=== PATIENT | male | born 1930 | race Caucasian/White ===

== ENCOUNTER 2017-02-26 09:44 | Outpatient (CLI) | payer MEDICARE ==
[2017-02-26 11:50] LABS: Hemoglobin 13.3 g/dL (14.0-18.0); Mean Corpuscular HGB CONC 33.5 g/dL (32.0-36.0); Mean Corpuscular Volume 92.5 fl (80.0-94.0); Mean Platelet Volume 7.2 fL (7.4-10.4); Platelet Count 241 thou/uL (130-400); RBC Distribution Width 13.6 % (11.5-14.5); Red Blood Cell (RBC) Count 4.29 mill/uL (4.70-6.10); White Blood Cell (WBC) Count 10.5 thou/uL (4.8-10.8)
[2017-02-26 12:00] LABS: INR-International Normal Ratio 1.1; PTT 28.7 SEC (22.9-36.1); Prothrombin Time 13.8 SEC (12.0-14.7)
[2017-02-26 12:34] LABS: Anion Gap 16 mmol/L (10-20); BUN (Urea Nitrogen) 20 mg/dL (8.4-25.7); Calc. Creatinine Clearance 0 mL/min (70-130); Calcium 9.6 mg/dL (7.8-10.44); Carbon Dioxide 21 mmol/L (23-31); Chloride 104 mmol/L (98-107); Estimated GFR-MDRD 76; Glucose 107 mg/dL (83-110); Potassium 4.4 mmol/L (3.5-5.1); Sodium 137 mmol/L (136-145)
--- NOTE | 2017-03-23 16:30 | EKG ---
Test Reason : Blood Pressure : / mmHG Vent. Rate : 069 BPM Atrial Rate : 069 BPM P-R Int : 174 ms QRS Dur : 172 ms QT Int : 482 ms P-R-T Axes : 000 -82 078 degrees QTc Int : 516 ms AV sequential or dual chamber electronic pacemaker When compared with ECG of 14-APR-2013 12:02, No significant change was found Confirmed by DR. Ronald MARTINEZ ([id number]) on 03/23/2017 4:29:53 PM Referred By: SHILPA Confirmed By:DR. Ronald MARTINEZ
== END 2017-02-26 09:45 | disposition home or self-care (01) ==
LOC: LABBT 09:44
PROVIDERS: ATTEND Surgery
DX: Z01.818 Encounter for other preprocedural examination (principal); M54.16 Radiculopathy, lumbar region; M48.062 Spinal stenosis, lumbar region with neurogenic claudication
CPT/HCPCS: 80048; 85027; 85610; 85730; 93005; 93010

== ENCOUNTER 2017-03-27 05:53 | Day surgery (SDC) | payer MEDICARE ==
[2017-02-26 10:17] VITALS: BMI 27.3
[2017-03-27] MEDS ORDERED: Sodium Chloride 0.9% 10 ML ONE (06:29)
[2017-03-27] MEDS ORDERED: Thrombin 5000 UNITS/5 ML VIAL ONE (06:29)
[2017-03-27] MEDS ORDERED: CEFAZOLIN/Water 2 GM/20 ML SYRINGE ONE (06:44)
[2017-03-27] MEDS ORDERED: Fentanyl 100 MCG/2 ML VIAL ONE ×2 (07:03→11:24)
[2017-03-27] MEDS ORDERED: Norepinephrine 8 MG/0.9% NS 250 ML ONE (07:26)
[2017-03-27] MEDS ORDERED: Bacitracin Zinc Ointment 30 gm TUBE ONE (09:27)
[2017-03-27] MEDS ORDERED: Ondansetron HCl/PF 4 MG/2 ML Vial IVP PRN ×2 (09:56→11:02)
[2017-03-27] MEDS ORDERED: Morphine Sulfate 2 MG/ML SYRINGE SLOW IVP PRN (09:56)
[2017-03-27] MEDS ORDERED: Promethazine HCl 25 MG/ML VIAL IM PRN ×2 (09:56→11:02)
[2017-03-27] MEDS ORDERED: Promethazine HCl 25 MG/ML VIAL SLOW IVP PRN (09:56)
[2017-03-27] MEDS ORDERED: Meperidine HCl/PF 25 MG/ML VIAL SLOW IVP PRN (09:56)
[2017-03-27] MEDS ORDERED: Mag-Al 1200 mg/1200 mg/30 ML UDCUP PO PRN (11:02)
[2017-03-27] MEDS ORDERED: Bisacodyl 10 MG SUPP PR PRN (11:02)
[2017-03-27] MEDS ORDERED: Acetaminophen/Codeine 30-300mg Tablet PO PRN (11:02)
[2017-03-27] MEDS ORDERED: Milk Of Magnesia 30 ML UDCUP PO PRN (11:02)
[2017-03-27] MEDS ORDERED: Fleet Enema 133 ML BOT PR PRN (11:02)
[2017-03-27] MEDS ORDERED: Acetaminophen 325 MG TAB PO PRN (11:02)
--- NOTE | 2017-03-27 12:20 | OP ---
OR: 12 WOUND TYPE: Type 1 wound. SURGEON: Omar Pereira M.D. 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 PROCEDURES PERFORMED: L1-L2, L2-L3, L3-L4, L4-L5, L5-S1 laminectomies, partial facetectomies and for aminotomies over the L1, L2, L3, L4, L5, and S1 nerve roots. PROCEDURE IN DETAIL: After informed consent was obtained from the patient, the patient brought to OR 12. Proper patient pause and identification was carried out. He was placed under excellent general endotracheal anesthesia and positioned prone on the operating table. All appropriate points were pa dded. We identified the L1, L2, L3, L4, L5, and S1 dorsal spines and lamina. A linear leonor was made over this region. This area was sterilely cleansed, prepared, and draped. Proper patient pause and identification was carried out. The wound was then opened with a combination of sharp, monopolar an d blunt dissection and the L1, L2, L3, L4, L5, and S1 dorsal spines and lamina were exposed. Localiz ation film confirmed our area of interest. We then performed an L1, L2, L3, L4, L5, and S1 laminecto mies, partial facetectomies and foraminotomies over the L1, L2, L3, L4, L5, and S1 dorsal nerve roots . Satisfied with our decompression. Copious irrigation occurred throughout and hemostasis maximized . The wound was then closed in anatomic layers. I should note there was no spinal fluid leak. We d id place vancomycin powder in the wound as well.
[2017-03-27] MEDS: Sodium Chloride 0.9% 1,000 ML IV SCH ×2 (13:39→13:52)
[2017-03-27] MEDS: HYDROcodone/Acetaminophen 7.5/325 mg Tablet PO PRN ×2 (14:23→22:11)
[2017-03-27] MEDS: tiZANidine HCl 4 MG TAB PO PRN (16:07)
[2017-03-27] MEDS: traMADol HCl 50 MG TAB PO PRN ×3 (16:07→22:13)
[2017-03-27] MEDS ORDERED: Glycopyrrolate 0.2 MG/ML 5 ML SYRINGE ONE (16:22)
[2017-03-27] MEDS ORDERED: PHENYLEPHRINE-NS 100 MCG/ML 10 ML SYRINGE ONE (16:22)
[2017-03-27] MEDS ORDERED: Ondansetron HCl/PF 4 MG/2 ML Vial ONE (16:22)
[2017-03-27] MEDS ORDERED: Propofol 200 MG/20 ML VIAL ONE (16:22)
[2017-03-27] MEDS ORDERED: Dexamethasone 20 MG/5 ML VIAL ONE (16:22)
[2017-03-27] MEDS ORDERED: Lidocaine 1% PF 5 ML VIAL ONE (16:22)
[2017-03-27] MEDS: CEFAZOLIN/Water 2 GM/20 ML SYRINGE SLOW IVP SCH (17:22)
[2017-03-27] MEDS ORDERED: GLUCOSAMINE SULFATE 1000 MG PO SCH (21:00)
[2017-03-27] MEDS: metFORMIN 500 MG TAB PO SCH (21:55)
[2017-03-27] MEDS: Montelukast Sodium 10 mg Tablet PO SCH (21:56)
[2017-03-27] MEDS: Calcium Carbonate + Vit D 1 TAB PO SCH (21:56)
[2017-03-27] MEDS: Vit A,C & E/Lutein/Minerals Tablet PO SCH (22:10)
[2017-03-28] MEDS: CEFAZOLIN/Water 2 GM/20 ML SYRINGE SLOW IVP SCH (00:28)
[2017-03-28] MEDS: HYDROcodone/Acetaminophen 7.5/325 mg Tablet PO PRN ×4 (02:20→21:28)
[2017-03-28] MEDS: tiZANidine HCl 4 MG TAB PO PRN ×3 (02:21→21:28)
[2017-03-28] MEDS: Sodium Chloride 0.9% 1,000 ML IV SCH ×2 (03:09→14:25)
[2017-03-28] MEDS: traMADol HCl 50 MG TAB PO PRN (05:32)
[2017-03-28] MEDS: Folic Acid 1 MG TAB PO SCH (08:58)
[2017-03-28] MEDS: Ferrous Sulfate 325 MG TAB PO SCH (08:59)
[2017-03-28] MEDS: Amlodipine 5 MG TAB PO SCH (08:59)
[2017-03-28] MEDS: Multivitamin W/ Minerals 1 TAB PO SCH (08:59)
[2017-03-28] MEDS: Calcium Carbonate + Vit D 1 TAB PO SCH ×2 (08:59→21:23)
[2017-03-28] MEDS: metFORMIN 500 MG TAB PO SCH ×2 (08:59→21:23)
[2017-03-28] MEDS: Atorvastatin Calcium 40 MG TAB PO SCH (08:59)
[2017-03-28] MEDS: Cyanocobalamin (Vitamin B-12) 1,000 MCG TAB PO SCH (08:59)
[2017-03-28] MEDS: Hydrochlorothiazide 25 MG TAB PO SCH (09:00)
--- NOTE | 2017-03-28 09:34 | PRG ---
DATE OF SERVICE: 03/28/2017 Mr. Paniagua is postoperative day 1 from multilevel lumbar laminectomy and decompression. He is doing well with improvement in his leg pain. Obviously low back pain related to surgery is the main issue. We will work on this and ask our physiatry colleagues to assist.
[2017-03-28] MEDS: Magnesium Chloride 64 MG TAB PO SCH (10:35)
[2017-03-28] MEDS: Glimepiride 1 MG TAB PO SCH (10:35)
[2017-03-28] MEDS: Ubidecarenone 50 MG CAP PO SCH (10:36)
[2017-03-28] MEDS: Vit A,C & E/Lutein/Minerals Tablet PO SCH ×2 (10:36→21:23)
[2017-03-28] MEDS: Dutasteride 0.5 MG CAP PO SCH (10:37)
[2017-03-28] MEDS: TUMERIC CURCUMIN PO SCH ×2 (14:25→14:26)
[2017-03-28] MEDS: GLUCOSAMINE SULFATE 1000 MG PO SCH (14:25)
[2017-03-28] MEDS: Montelukast Sodium 10 mg Tablet PO SCH (21:23)
[2017-03-29] MEDS: Sodium Chloride 0.9% 1,000 ML IV SCH ×2 (01:09→17:11)
[2017-03-29] MEDS: traMADol HCl 50 MG TAB PO PRN ×3 (04:35→17:13)
[2017-03-29] MEDS: tiZANidine HCl 4 MG TAB PO PRN ×3 (04:37→17:16)
[2017-03-29] MEDS: metFORMIN 500 MG TAB PO SCH ×2 (09:15→21:08)
[2017-03-29] MEDS: Hydrochlorothiazide 25 MG TAB PO SCH (09:16)
[2017-03-29] MEDS: Cyanocobalamin (Vitamin B-12) 1,000 MCG TAB PO SCH (09:17)
[2017-03-29] MEDS: Dutasteride 0.5 MG CAP PO SCH (09:17)
[2017-03-29] MEDS: Folic Acid 1 MG TAB PO SCH (09:17)
[2017-03-29] MEDS: Atorvastatin Calcium 40 MG TAB PO SCH (09:18)
[2017-03-29] MEDS: Calcium Carbonate + Vit D 1 TAB PO SCH ×2 (09:18→21:08)
[2017-03-29] MEDS: Ferrous Sulfate 325 MG TAB PO SCH (09:18)
[2017-03-29] MEDS: Amlodipine 5 MG TAB PO SCH ×2 (09:18→09:31)
[2017-03-29] MEDS: Multivitamin W/ Minerals 1 TAB PO SCH (09:18)
[2017-03-29] MEDS: Vit A,C & E/Lutein/Minerals Tablet PO SCH ×2 (12:11→21:08)
[2017-03-29] MEDS: Glimepiride 1 MG TAB PO SCH (12:12)
[2017-03-29] MEDS: Magnesium Chloride 64 MG TAB PO SCH (12:12)
[2017-03-29] MEDS: Ubidecarenone 50 MG CAP PO SCH (12:12)
[2017-03-29] MEDS: HYDROcodone/Acetaminophen 7.5/325 mg Tablet PO PRN (12:13)
--- NOTE | 2017-03-29 16:59 | PRG ---
DATE OF SERVICE: 03/29/2017 Giovanni Taylor PA-C, dictating for Omar Pereira MD Mr. Paniagua is now postoperative day #2, having undergone an L1-S1 laminectomy. The patient states hi s incision continues to bother him and he is experimenting with different types of pain medications a nd muscle relaxants to help with his pain. He has been up walking the halls with physical therapy. He is at neurologic baseline with good strength in the bilateral lower extremities, intact sensation to light touch throughout. He is refused to go to inpatient rehab, so we will set up home health [facility] h therapy and he will likely be ready for dismissal tomorrow. He is again ambulating, tolerating ely id diet, voiding spontaneously and his pain is under decent control with oral medications. Again, we will check back in the morning, but plan for dismissal tomorrow. Please call with any questions or changes in patient's neurologic status.
[2017-03-29] MEDS: Montelukast Sodium 10 mg Tablet PO SCH (21:08)
[2017-03-30] MEDS: tiZANidine HCl 4 MG TAB PO PRN ×2 (00:20→20:10)
[2017-03-30] MEDS: traMADol HCl 50 MG TAB PO PRN ×2 (00:20→20:09)
[2017-03-30] MEDS: Sodium Chloride 0.9% 1,000 ML IV SCH ×2 (04:17→20:17)
[2017-03-30] MEDS: HYDROcodone/Acetaminophen 10/325 mg Tablet PO PRN ×2 (08:01→17:36)
[2017-03-30] MEDS: Ubidecarenone 50 MG CAP PO SCH (09:21)
[2017-03-30] MEDS: Magnesium Chloride 64 MG TAB PO SCH (09:21)
[2017-03-30] MEDS: Vit A,C & E/Lutein/Minerals Tablet PO SCH ×2 (09:21→20:17)
[2017-03-30] MEDS: Multivitamin W/ Minerals 1 TAB PO SCH (09:22)
[2017-03-30] MEDS: Folic Acid 1 MG TAB PO SCH (09:22)
[2017-03-30] MEDS: Ferrous Sulfate 325 MG TAB PO SCH (09:22)
[2017-03-30] MEDS: Hydrochlorothiazide 25 MG TAB PO SCH (09:22)
[2017-03-30] MEDS: Glimepiride 1 MG TAB PO SCH (09:22)
[2017-03-30] MEDS: Cyanocobalamin (Vitamin B-12) 1,000 MCG TAB PO SCH (09:23)
[2017-03-30] MEDS: Amlodipine 5 MG TAB PO SCH (09:24)
[2017-03-30] MEDS: Calcium Carbonate + Vit D 1 TAB PO SCH ×2 (09:24→20:09)
[2017-03-30] MEDS: metFORMIN 500 MG TAB PO SCH ×2 (09:24→20:10)
[2017-03-30] MEDS: Atorvastatin Calcium 40 MG TAB PO SCH (09:24)
--- NOTE | 2017-03-30 10:07 | PRG ---
DATE OF SERVICE: 03/30/2017 SUBJECTIVE: Mr. Paniagua is postoperative day #3 following a multilevel lumbar decompression. He has some left buttock pain this morning, but overall, he feels as if his legs certainly feel better hamilton red to before surgery. We are dealing with urinary retention at this point and he does report some f ullness to his bladder. We will scan his bladder and I have emphasized continue mobilization. We ar e working on the patient being dismissed with home health. Neurologically, he is doing well. This i s simply a big surgery for a patient of his age, but I am pleased with how he is doing at this point.
[2017-03-30] MEDS: Dutasteride 0.5 MG CAP PO SCH (11:17)
[2017-03-30] MEDS: Montelukast Sodium 10 mg Tablet PO SCH (20:09)
[2017-03-31] MEDS: traMADol HCl 50 MG TAB PO PRN (03:49)
[2017-03-31] MEDS: tiZANidine HCl 4 MG TAB PO PRN (03:50)
[2017-03-31 08:05] VITALS: BP 108/55; TEMP 97.8
[2017-03-31] MEDS: Sodium Chloride 0.9% 1,000 ML IV SCH (09:13)
[2017-03-31] MEDS: Cyanocobalamin (Vitamin B-12) 1,000 MCG TAB PO SCH (09:16)
[2017-03-31] MEDS: Folic Acid 1 MG TAB PO SCH (09:17)
[2017-03-31] MEDS: Amlodipine 5 MG TAB PO SCH (09:17)
[2017-03-31] MEDS: Calcium Carbonate + Vit D 1 TAB PO SCH (09:17)
[2017-03-31] MEDS: Atorvastatin Calcium 40 MG TAB PO SCH (09:18)
[2017-03-31] MEDS: metFORMIN 500 MG TAB PO SCH (09:18)
[2017-03-31] MEDS: Multivitamin W/ Minerals 1 TAB PO SCH (09:19)
[2017-03-31] MEDS: Hydrochlorothiazide 25 MG TAB PO SCH (09:19)
[2017-03-31] MEDS: Ferrous Sulfate 325 MG TAB PO SCH (09:19)
[2017-03-31] MEDS: Magnesium Chloride 64 MG TAB PO SCH (09:20)
[2017-03-31] MEDS: Glimepiride 1 MG TAB PO SCH (09:21)
[2017-03-31] MEDS: Ubidecarenone 50 MG CAP PO SCH (09:21)
[2017-03-31] MEDS: Vit A,C & E/Lutein/Minerals Tablet PO SCH (09:21)
[2017-03-31] MEDS: Dutasteride 0.5 MG CAP PO SCH (09:22)
--- NOTE | 2017-03-31 10:57 | PRG ---
DATE OF SERVICE: 03/31/2017 Giovanni Taylor PA-C, dictating for Dr. Omar Pereira. Mr. Paniagua is now postoperative day #4, having undergone multilevel lumbar laminectomy. Overall, the patient states that he is feeling much better today. He does continue to complain of some incisiona l back pain, but states this is improved. He has no radicular symptoms. He did have issues with uri nary retention. A Boothe catheter was placed. He has been tolerating a solid diet and walking or amb ulating with a rolling walker. He remains neurological baseline with good strength in the bilateral lower extremities and intact sensation to light touch. His incision was uncovered and is clean, dry, and intact, closed with kathya. There is no drainage and no wound dehiscence. The patient has met criteria for discharge. He will be discharged with a Boothe catheter with appropriate Boothe catheter teaching, and he should follow up with his urologist within a week for management of the Boothe timo ter. Appropriate prescriptions were placed on the patient's chart, and the patient and his are agreeable to this plan and would like to go home today. Please call with any questions, otherwise th e patient will follow up on an outpatient basis.
== END 2017-03-31 11:30 | disposition home health service (06) ==
LOC: SDC 05:53 → 3SE 12:34 → SDC 03-31 11:30
PROVIDERS: ATTEND Surgery
PROC: 00NY0ZZ Release Lumbar Spinal Cord, Open Approach (ICD-10-PCS; principal; 2017-03-27)
DX: M48.061 Spinal stenosis, lumbar region without neurogenic claudication (principal); M54.16 Radiculopathy, lumbar region; Z98.890 Other specified postprocedural states
CPT/HCPCS: 63047; 63048 ×5; 76001; 82962; 97110; 97116 ×3; 97139 ×2; 97530 ×3; 97535; G8978; G8979; G8987; G8988; 36416; A4216; J1100; J2001; J2405; J2704; J3010; J3370; J3490

== ENCOUNTER 2017-05-08 10:24 | Outpatient (CLI) | payer MEDICARE ==
[2017-05-08] MEDS ORDERED: Iopamidol 370 76% 100 ML VIAL ONE (16:55)
== END 2017-05-08 10:25 | disposition home or self-care (01) ==
LOC: BICCT 10:24
PROVIDERS: ATTEND Internal Medicine Gastroenterology
DX: K86.2 Cyst of pancreas (principal); N28.1 Cyst of kidney, acquired; K86.89 Other specified diseases of pancreas
CPT/HCPCS: 74170

== ENCOUNTER 2017-10-04 09:45 | Outpatient (CLI) | payer MEDICARE | END 2017-10-04 09:46 | disposition home or self-care (01) | LOC: BICRAD 09:45 | PROVIDERS: ATTEND Surgery | DX: M54.5 Low back pain (principal); M47.816 Spondylosis without myelopathy or radiculopathy, lumbar region; Z98.890 Other specified postprocedural states | CPT/HCPCS: 72100 ==

== ENCOUNTER 2017-10-12 09:31 | Outpatient (CLI) | payer MEDICARE ==
--- NOTE | 2017-10-12 11:46 | ULT ---
ABDOMINAL ULTRASOUND COMPLETE: HISTORY: An 87-year-old male with a history of other specified diseases of the liver. FINDINGS: Liver echogenicity appears to be slightly coarse. The gallbladder demonstrates no evidence of gallst ones, wall thickening, edema, or pericholecystic fluid. Common bile duct is within normal limits. T here is a huge thin-walled cyst noted between the right lobe of the liver and the right kidney, this cyst measures at least 18 cm in length, although I am not certain whether this could be a renal cyst, liver cyst, or other cyst including a pancreatic cyst or pseudocyst. There are marked compressive c hanges of the right kidney and also compression of the gallbladder and right lobe of the liver. Visu alized pancreas, IVC, aorta, and spleen are unremarkable. A left renal cyst approximately 2.2 cm. N o free intraperitoneal fluid. IMPRESSION: Huge thin-walled cyst in the right upper quadrant, somewhat compressing and displacing the right lobe of the liver, gallbladder, and right kidney. Etiology of this large cyst is uncertain. Pancreatic tissue is obscured. Left renal cyst. No evidence of gallstones. No evidence for splenomegaly. Followup abdomen and pelvic CT scan with and without contrast with multiphase imaging is suggested fo r further assessment of this huge upper abdominal cyst unless this has been done recently at some [facility] institution. POS: RAQUEL
== END 2017-10-12 09:32 | disposition home or self-care (01) ==
LOC: ULT 09:31
PROVIDERS: ATTEND Internal Medicine Cardiovascular Disease
DX: K76.89 Other specified diseases of liver (principal)
CPT/HCPCS: 76700; 80053; 85025; 85610; 85730

== ENCOUNTER → 2017-10-16 | Day surgery (SDC) | payer MEDICARE ==
[2017-10-12 11:10] VITALS: BMI 28.1
[~2017-10-16] MED LIST: Adenosine 6 MG/2 ML VIAL ONE; Fentanyl 100 MCG/2 ML VIAL ONE; Heparin 1000 UNIT/NS 500ML(OR) 1,000 ML ONE; Heparin 1000 UNIT/NS 500ML(OR) 500 ML ONE; Iopamidol 370 76% 100 ML VIAL ONE; Nitroglycerin 100MG/250ML BOT 0 ML ONE; Nitroglycerin 100MG/250ML BOT 250 ML ONE; Verapamil 5 MG/2 ML VIAL ONE
== END ==
LOC: CCL 05:51
PROVIDERS: ATTEND Internal Medicine Cardiovascular Disease
PROC: B2111ZZ Fluoroscopy of Multiple Coronary Arteries using Low Osmolar Contrast (ICD-10-PCS; principal; 2017-10-16)
DX: I25.10 Atherosclerotic heart disease of native coronary artery without angina pectoris (principal); I35.0 Nonrheumatic aortic (valve) stenosis; K21.9 Gastro-esophageal reflux disease without esophagitis; I48.0 Paroxysmal atrial fibrillation; I10 Essential (primary) hypertension; E78.5 Hyperlipidemia, unspecified; Z79.84 Long term (current) use of oral hypoglycemic drugs; Z79.899 Other long term (current) drug therapy; Z79.82 Long term (current) use of aspirin; Z87.891 Personal history of nicotine dependence
CPT/HCPCS: 76942; 93454; C1769; 99152; 99153; J0153; J1644; J3010

== ENCOUNTER 2017-12-10 11:24 | Outpatient (CLI) | payer MEDICARE ==
--- NOTE | 2017-12-10 14:20 | RAD ---
CHEST 2 VIEWS: Aortic valve stenosis. COMPARISON: Radiograph from 2012. FINDINGS: There is a small left pleural effusion. Left basilar airspace opacity. No pneumothorax. Dual-lead pacer is present. IMPRESSION: Small layering left pleural effusion with left basilar opacity concerning for infection. Followup x- ray is recommended. POS: TPC
== END 2017-12-10 11:25 | disposition home or self-care (01) ==
LOC: RAD 11:24
PROVIDERS: ATTEND Thoracic Surgery (Cardiothoracic Vascular Surgery)
DX: I35.0 Nonrheumatic aortic (valve) stenosis (principal); J90 Pleural effusion, not elsewhere classified; R91.8 Other nonspecific abnormal finding of lung field; E11.9 Type 2 diabetes mellitus without complications
CPT/HCPCS: 71046; 82043; 83036

== ENCOUNTER 2017-12-17 11:32 | Outpatient (CLI) | payer MEDICARE ==
[2017-12-17 14:02] LABS: Anion Gap 14 mmol/L (10-20); BUN (Urea Nitrogen) 26 mg/dL (8.4-25.7); Calc. Creatinine Clearance 0 mL/min (70-130); Calcium 9.4 mg/dL (7.8-10.44); Carbon Dioxide 21 mmol/L (23-31); Chloride 107 mmol/L (98-107); Estimated GFR-MDRD 72; Glucose 126 mg/dL (83-110); Potassium 4.1 mmol/L (3.5-5.1); Sodium 138 mmol/L (136-145)
--- NOTE | 2017-12-17 14:04 | RAD ---
TWO VIEWS CHEST: Comparison: 06-30-11 History: Pre-operative radiograph. FINDINGS: Two views of the chest shows a normal sized cardiomediastinal silhouette with atherosclerotic calcifi cations in the aorta. The pacemaker is unchanged in position. Increased interstitial markings are pre sent. There is no evidence of consolidation. There may be a small left pleural effusion. IMPRESSION: 1. Increase interstitial lung disease. 2. Small left pleural effusion. POS: JOYCE
--- NOTE | 2017-12-17 15:10 | EKG ---
Test Reason : Blood Pressure : / mmHG Vent. Rate : 070 BPM Atrial Rate : 070 BPM P-R Int : 000 ms QRS Dur : 156 ms QT Int : 466 ms P-R-T Axes : 072 104 -76 degrees QTc Int : 503 ms Normal sinus rhythm Electronic ventricular pacemaker Abnormal ECG Confirmed by RODGER VARELA ([id number]) on 12/17/2017 3:10:15 PM Referred By: DEEPTI Confirmed By:RODGER VARELA
== END 2017-12-17 11:33 | disposition home or self-care (01) ==
LOC: LABBT 11:32
PROVIDERS: ATTEND Thoracic Surgery (Cardiothoracic Vascular Surgery)
DX: Z01.818 Encounter for other preprocedural examination (principal); I35.0 Nonrheumatic aortic (valve) stenosis
CPT/HCPCS: 71046; 80048; 85027; 85610; 85730; 86850; 86900; 86901; 93005; 93010

== ENCOUNTER 2017-12-17 13:00 | Inpatient (IN) | payer MEDICARE ==
[2017-12-17 13:43] LABS: Hemoglobin 11.9 g/dL (14.0-18.0); Mean Corpuscular HGB CONC 32.7 g/dL (32.0-36.0); Mean Corpuscular Volume 94.6 fL (78.0-98.0); Mean Platelet Volume 7.9 fL (7.4-10.4); Platelet Count 202 thou/uL (130-400); RBC Distribution Width 14.5 % (11.5-14.5); Red Blood Cell (RBC) Count 3.85 mill/uL (4.70-6.10); White Blood Cell (WBC) Count 9.1 thou/uL (4.8-10.8)
[2017-12-17 13:47] LABS: INR-International Normal Ratio 1.1; PTT 31.6 SEC (22.9-36.1); Prothrombin Time 14.4 SEC (12.0-14.7)
[2017-12-18] MEDS ORDERED: Albumin 5% 500 ML ONE (06:24)
[2017-12-18] MEDS ORDERED: Fentanyl 100 MCG/2 ML VIAL ONE (06:30)
[2017-12-18] MEDS ORDERED: Midazolam HCl 2 mg/2 ml Vial ONE (06:30)
[2017-12-18] MEDS ORDERED: Midazolam HCl 5 mg/5 ml Vial ONE (06:30)
[2017-12-18] MEDS ORDERED: Dexmedetomidine 200 MCG/2 ML VIAL ONE (06:31)
[2017-12-18] MEDS ORDERED: Vecuronium 10 MG VIAL ONE ×2 (06:31→17:56)
[2017-12-18] MEDS ORDERED: CEFAZOLIN 2 GM/50 ML BAG ONE (06:32)
[2017-12-18] MEDS ORDERED: Vancomycin HCl 1.5 GM in Sodium Chloride 0.9% 250 ML 300 ML IVPB SCH (06:45)
[2017-12-18] MEDS ORDERED: Heparin 10,000 UNITS/1 ML VIAL 30,000 UNITS in Sodium Chloride 0.9% 1,000 ML FS SCH (06:45)
[2017-12-18] MEDS ORDERED: Insulin Regular 300 UNITS/3 ML VIAL ONE (08:12)
[2017-12-18] MEDS ORDERED: Hetastarch 6% 500 ML 500 ML IVPB PRN (12:12)
[2017-12-18] MEDS ORDERED: Post-Op Insulin Drip Protocol IVPB ONE (12:12)
[2017-12-18] MEDS ORDERED: hydrALAZINE 20 MG/ML VIAL SLOW IVP PRN (12:12)
[2017-12-18] MEDS ORDERED: Fentanyl 100 MCG/2 ML VIAL SLOW IVP PRN ×2 (12:12)
[2017-12-18] MEDS ORDERED: Norepinephrine 8 MG/0.9% NS 250 ML IVPB PRN (12:12)
[2017-12-18] MEDS ORDERED: Bisacodyl 10 MG SUPP PR PRN (12:12)
[2017-12-18] MEDS ORDERED: Ondansetron PF 4 MG/2 ML Vial IVP PRN (12:12)
[2017-12-18] MEDS ORDERED: Bisacodyl 5 MG TAB PO PRN (12:12)
[2017-12-18] MEDS ORDERED: Acetaminophen 325 MG TAB PO PRN (12:12)
[2017-12-18] MEDS ORDERED: Promethazine HCl 25 MG/ML VIAL IM PRN (12:12)
[2017-12-18] MEDS ORDERED: Nitroglycerin 50 MG/250 ML BOT 250 ML IVPB PRN (12:12)
[2017-12-18] MEDS ORDERED: Mag-Al 1200 mg/1200 mg/30 ML UDCUP PO PRN (12:12)
[2017-12-18] MEDS ORDERED: Guaifenesin DM 100-10/5 ML UDCUP PO PRN (12:12)
[2017-12-18] MEDS ORDERED: Phenylephrine 10 MG/NS 250 ML 250 ML IVPB PRN (12:12)
[2017-12-18] MEDS ORDERED: Magnesium 2 GM/50 ML 2 GM in Premix Bag 1 BAG IVPB SCH (12:15)
[2017-12-18] MEDS ORDERED: D5 1/2 NS w/20 mEq KCL 1,000 ML IV SCH (12:15)
[2017-12-18 12:31] LABS: Actual Bicarbonate (HCO3a) 24.4 mEq/L (22-28); Base Excess (BEa) -1.6 mEq/L (-2.0 to +3.0); CO2 Tension 46.8 mmHg (35.0-45.0); Carboxyhemoglobin (COHb) 1.1 gm% (0.0-3.0); Hemoglobin (Hb) 10.5 g/dL (14.0-18.0); pH, Arterial 7.34 (7.35-7.45)
[2017-12-18 12:34] LABS: Puncture Site LINE
[2017-12-18 12:51] LABS: #Eosinphils 0.1 thou/uL (0.0-0.7); #Monocytes 0.9 thou/uL (0.11-0.59); #Neutrophils 10.6 thou/uL (1.40-6.50); %Basophils 0.1 % (0.0-1.0); %Lymphocytes 7.9 % (21.0-51.0); %Monocytes 6.8 % (0.0-10.0); %Neutrophils 84.2 % (42.0-75.0); Hemoglobin 9.9 g/dL (14.0-18.0); Mean Corpuscular HGB CONC 33.2 g/dL (32.0-36.0); Mean Corpuscular Hemoglobin 31.3 pg (27.0-31.0); Mean Corpuscular Volume 94.1 fL (78.0-98.0); Mean Platelet Volume 7.7 fL (7.4-10.4); Platelet Count 124 thou/uL (130-400); RBC Distribution Width 14.3 % (11.5-14.5); Red Blood Cell (RBC) Count 3.16 mill/uL (4.70-6.10); White Blood Cell (WBC) Count 12.6 thou/uL (4.8-10.8)
[2017-12-18 12:58] LABS: INR-International Normal Ratio 1.5; PTT 36.9 SEC (22.9-36.1); Prothrombin Time 18.4 SEC (12.0-14.7)
[2017-12-18] MEDS ORDERED: Ketorolac Tromethamine 30 MG/ML VIAL IVP SCH (13:00)
[2017-12-18 13:10] LABS: Anion Gap 9 mmol/L (10-20); BUN (Urea Nitrogen) 21 mg/dL (8.4-25.7); Calc. Creatinine Clearance 79 mL/min (70-130); Calcium 8.5 mg/dL (7.8-10.44); Carbon Dioxide 22 mmol/L (23-31); Chloride 112 mmol/L (98-107); Estimated GFR-MDRD Greater than 90; Glucose 75 mg/dL (83-110); Potassium 3.6 mmol/L (3.5-5.1); Sodium 139 mmol/L (136-145)
[2017-12-18] MEDS: CEFAZOLIN 2 GM/50 ML BAG IVPB SCH ×2 (13:24→22:45)
[2017-12-18] MEDS: Potassium Chloride 20 MEQ/100 ML PREMIX BAG IVPB PRN (13:24)
--- NOTE | 2017-12-18 13:52 | OP ---
DATE OF PROCEDURE: 12/18/2017 PREOPERATIVE DIAGNOSES: 1. Aortic stenosis. 2. Coronary artery disease. 3. Hypertension. 4. Dyslipidemia. 5. Diabetes mellitus. 6. History of skin cancer. PROCEDURES: 1. Reverse saphenous vein to 2.0 mm LAD -- good conduit and target. 2. Reverse saphenous vein to 1.25 mm PDA -- good conduit and small target. SURGEON: Dr. Phoenix Panda and Dr. Rui Francis. ANESTHESIA: General endotracheal, Dr. Jaycob White. PUMP TIME: 108 minutes. CROSS-CLAMP TIME: 90 minutes. LOW CORE TEMP: 32-degree Celsius. ASSISTANT SPEECH LANGUAGE PATHOLOGIST: Sugey Alvarez. DRAINS: 24-Azerbaijani chest tubes x3. DRIPS: None. TRANSFUSIONS: None. PROCEDURE IN DETAIL: After consent was obtained, the patient was brought to the operating room and placed supine on the operating room table. Appropriate anesthetic monitor was placed and general endotracheal anesthesia induced. Chest, abdomen, and legs were prepped and draped in usual sterile fashion. Greater saphenous vein was harvested through skip incisions on the left leg. Wounds irrigated and closed in layers. Median sternotomy was performed. Left internal mammary artery was initially begun to be harvested, but it was fixed to the chest wall and could not be peeled back in a satisfactory manner. Therefore, I aborted taken the mammary artery. Additional vein was taken from the left leg. Thymic fat and pericardium were divided with electrocautery. Pericardial stay sutures were placed. The patient was systemically heparinized. Aortic and atrial cannulation performed. After adequate heparinization, the patient underwent retrograde prime and then was placed on cardiopulmonary bypass. Left ventricular sump drain was placed to the right superior pulmonary vein. Distal targets were marked. Aortic cross -clamp was applied and antegrade sanguinous cardioplegic arrest obtained. One liter of antegrade cold [place] cardioplegia was given. Topical cold solution was used. Reverse saphenous vein was anastomosed PDA and saphenous running 7-0 Prolene suture. Anastomosis tested and was hemostatic. Reverse saphenous vein was anastomosed to the LAD and saphenous running 7-0 Prolene suture. Anastomosis tested and was hemostatic. Then 300 mL of antegrade cold [place] cardioplegia was given including down the grafts. CO2 was infused into the pericardial well throughout the open aorta portion of the case. A transverse hockey stick aortotomy was performed. Valve was inspected. It was a 3-leaflet valve. All 3 leaflets were heavily calcified at the hinged points. The noncoronary cusp was calcified throughout and immobile. Leaflets were debrided. Annulus was decalcified. Valve measured at 23. The ventricle was copiously irrigated. Pledgetted 2-0 Ethibond sutures were placed through the aortic annulus and subsequently passed through the sewing ring of # 23 Magna bioprosthetic valve. The valve was seated and secured with core knots. The valve seated nicely. Aortotomy was closed in running fashion with pledgeted 4-0 Prolene suture in 2 layers. BioGlue was placed across the aortotomy. Punch sites were created for proximal anastomosis. Separate proximal anastomoses were performed with running 6-0 Prolene suture. De-airing maneuvers were performed. After adequate de-airing by MOISE, the patient was placed in Trendelenburg position and the crossclamp removed. The patient was warmed and weaned from cardiopulmonary bypass. After resumption of a paced rhythm, good hemodynamics, and temperature greater than 36.5, bypass was discontinued. Transfusions were given. Protamine was administered. Decannulation was performed and pursestring sutures secured. The left ventricular sump drain was removed and its pursestring sutures secured. Aortic root vent was removed and its pursestring sutures secured. After adequate hemostasis had been obtained, 24-Azerbaijani chest tubes were placed, one in each pleural cavity and one in mediastinum. On the left chest wall, the costal cartilage had fractured in three separate ribs. The patient had a fall from a deer feeder about a month prior to being admitted and this may have initiated the process, but with opening the sternum, the costal cartilage completely torn from the body of the sternum. These were reapproximated with a separate #5 wires. Sternum was then reapproximated with #7 wire. Vancomycin paste and platelet-rich plasma were placed on the sternal edges. Sternum was closed and wires twisted. Wounds were irrigated, treated with platelet-poor plasma, and closed in multiple layers. Needle, sponge, and instrument counts were reported correct at the end of the procedure. The patient tolerated procedure well and was transferred to the intensive care unit in stable, but critical condition. LAUREN
--- NOTE | 2017-12-18 14:18 | RAD ---
SINGLE VIEW CHEST: HISTORY: Status post open heart surgery. COMPARISON: 04/20/2004 and 12/10/2017 FINDINGS: A single view of the chest shows a normal sized cardiomediastinal silhouette. The patient is status post aortic valve repair. The pacemaker is unchanged in position. There are bilateral veil like [place] cities, which may represent small layering pleural effusions. A central venous catheter is seen with its tip in the superior vena cava. IMPRESSION: Status post sternotomy with bilateral pleural effusions. POS: TPC
[2017-12-18] MEDS: HYDROcodone/Acetaminophen 5/325 mg Tablet PO PRN ×2 (15:39→20:22)
[2017-12-18] MEDS ORDERED: Dextrose 5% in Water 1,000 ML IV PRN (16:51)
[2017-12-18] MEDS ORDERED: Dextrose 50% Abboject 50 ML SYRINGE SLOW IVP PRN (16:51)
[2017-12-18] MEDS: Ketorolac Tromethamine 30 MG/ML VIAL IVP SCH (17:39)
[2017-12-18] MEDS ORDERED: Aminocaproic Acid 5 GM/20 ML VIAL ONE (17:56)
[2017-12-18] MEDS ORDERED: Calcium Chloride 1 GM/10 ML Abboject SYRINGE ONE (17:56)
[2017-12-18] MEDS ORDERED: Protamine Sulfate 250 MG/25 ML VIAL ONE (17:56)
[2017-12-18] MEDS ORDERED: Cardioplegic Soln 1,000 ML BAG ONE (17:56)
[2017-12-18] MEDS ORDERED: Glycopyrrolate 0.2 MG/ML 5 ML SYRINGE ONE (17:56)
[2017-12-18] MEDS ORDERED: Heparin 30,000 units/30 ml VIAL ONE (17:56)
[2017-12-18] MEDS ORDERED: PHENYLEPHRINE-NS 100 MCG/ML 10 ML SYRINGE ONE (17:56)
[2017-12-18] MEDS ORDERED: Heparin 5,000 UNITS/ML VIAL ONE (17:56)
[2017-12-18] MEDS ORDERED: Ketorolac Tromethamine 30 MG/ML VIAL ONE (17:56)
[2017-12-18] MEDS ORDERED: Lidocaine 2% PF 100 mg/5 ml Syringe ONE (17:56)
[2017-12-18] MEDS ORDERED: Magnesium 5 GM/10 ML VIAL ONE (17:56)
[2017-12-18] MEDS ORDERED: Mannitol 12.5 GM/50 ML ONE (17:56)
[2017-12-18] MEDS ORDERED: Thrombin 5000 UNITS/5 ML VIAL ONE (17:56)
[2017-12-18] MEDS ORDERED: Sodium Bicarb 50 MEQ/50 ML VIAL ONE (17:56)
[2017-12-18] MEDS ORDERED: Nitroglycerin 50 MG/250 ML BOT ONE (17:56)
[2017-12-18] MEDS ORDERED: ePHEDrine/0.9% NaCl/PF SYRINGE 50 mg/10 ml ONE (17:56)
[2017-12-18] MEDS ORDERED: Papaverine 60 MG/2 ML VIAL ONE (17:56)
[2017-12-18] MEDS ORDERED: Potassium Chloride 60 MEQ/30 ML VIAL ONE (17:56)
[2017-12-18] MEDS: Vancomycin HCl 1.5 GM in Sodium Chloride 0.9% 250 ML 300 ML IVPB SCH (18:45)
[2017-12-18 19:20] LABS: Potassium 4.3 mmol/L (3.5-5.1)
[2017-12-18] MEDS ORDERED: Famotidine/PF 20 mg/2ml Vial SLOW IVP SCH (21:00)
[2017-12-19] MEDS: Ketorolac Tromethamine 30 MG/ML VIAL IVP SCH ×4 (00:24→17:28)
[2017-12-19] MEDS: HYDROcodone/Acetaminophen 5/325 mg Tablet PO PRN (00:24)
[2017-12-19 04:27] LABS: #Lymphocytes 0.8 thou/uL (1.20-3.40); #Monocytes 1.2 thou/uL (0.11-0.59); #Neutrophils 10.6 thou/uL (1.40-6.50); %Basophils 0.2 % (0.0-1.0); %Eosinophils 0.1 % (0.0-10.0); %Lymphocytes 6.1 % (21.0-51.0); %Monocytes 9.8 % (0.0-10.0); %Neutrophils 83.7 % (42.0-75.0); Hemoglobin 9.3 g/dL (14.0-18.0); Mean Corpuscular HGB CONC 33.1 g/dL (32.0-36.0); Mean Corpuscular Hemoglobin 31.5 pg (27.0-31.0); Mean Corpuscular Volume 95.2 fL (78.0-98.0); Mean Platelet Volume 8.3 fL (7.4-10.4); Platelet Count 136 thou/uL (130-400); RBC Distribution Width 14.4 % (11.5-14.5); Red Blood Cell (RBC) Count 2.95 mill/uL (4.70-6.10); White Blood Cell (WBC) Count 12.6 thou/uL (4.8-10.8)
[2017-12-19 04:33] LABS: Anion Gap 13 mmol/L (10-20); BUN (Urea Nitrogen) 27 mg/dL (8.4-25.7); Calc. Creatinine Clearance 59 mL/min (70-130); Calcium 8.2 mg/dL (7.8-10.44); Carbon Dioxide 19 mmol/L (23-31); Chloride 108 mmol/L (98-107); Estimated GFR-MDRD 65; Glucose 154 mg/dL (83-110); Potassium 4.1 mmol/L (3.5-5.1); Sodium 136 mmol/L (136-145)
[2017-12-19] MEDS: CEFAZOLIN 2 GM/50 ML BAG IVPB SCH (05:54)
[2017-12-19] MEDS: Vancomycin HCl 1.5 GM in Sodium Chloride 0.9% 250 ML 300 ML IVPB SCH (08:26)
[2017-12-19] MEDS: Ubidecarenone 50 MG CAP PO SCH (08:28)
[2017-12-19] MEDS: Dutasteride 0.5 MG CAP PO SCH (08:28)
[2017-12-19] MEDS: Hydrochlorothiazide 25 MG TAB PO SCH (08:28)
[2017-12-19] MEDS: Multivit, Therapeutic 1 TAB PO SCH (08:29)
[2017-12-19] MEDS: Calcium Carbonate 500 MG TAB PO SCH ×2 (08:29→20:37)
[2017-12-19] MEDS: Aspirin 325 MG TAB PO SCH (08:29)
[2017-12-19] MEDS: Atorvastatin Calcium 40 MG TAB PO SCH (08:29)
[2017-12-19] MEDS: Glimepiride 1 MG TAB PO SCH (08:43)
[2017-12-19] MEDS: Magnesium 2 GM/50 ML 2 GM in Premix Bag 1 BAG IVPB SCH (08:46)
[2017-12-19] MEDS ORDERED: TUMERIC CURCUMIN PO SCH (09:00)
[2017-12-19] MEDS ORDERED: VIT A PO SCH (09:00)
[2017-12-19] MEDS ORDERED: UBIDECARENONE PO SCH (09:00)
[2017-12-19] MEDS ORDERED: PATIENT'S HOME MEDICATION PO SCH (09:00)
[2017-12-19] MEDS ORDERED: COPPER PO SCH (09:00)
[2017-12-19] MEDS ORDERED: ZINC PO SCH (09:00)
[2017-12-19] MEDS ORDERED: VIT E PO SCH (09:00)
[2017-12-19] MEDS ORDERED: Aspirin 325 MG TAB PO SCH (09:00)
[2017-12-19] MEDS ORDERED: VIT C PO SCH (09:00)
[2017-12-19] MEDS ORDERED: Non-Formulary Item 1 EACH (Vit D3-Vit K/Berberine/Hops [Ostera Tablet] 1 TAB) PO SCH (09:00)
[2017-12-19] MEDS ORDERED: Hydrochlorothiazide 25 MG TAB PO SCH (09:00)
[2017-12-19] MEDS ORDERED: Glimepiride 1 MG TAB PO SCH (09:00)
[2017-12-19] MEDS ORDERED: Pantoprazole 40 MG GRANULES PACKET PO SCH ×2 (09:00)
[2017-12-19] MEDS ORDERED: Non-Formulary Item 1 EACH (Multivit-Min/Fa/Lycopen/Lutein [Centrum Silver Tablet] 1 TAB) PO SCH (09:00)
[2017-12-19] MEDS ORDERED: GLUCOSAMINE SULFATE PO SCH (09:00)
--- NOTE | 2017-12-19 09:31 | RAD ---
CHEST ONE VIEW PORTABLE: History: 80-year-old male with history of post op open heart. Comparison: 12-18-17 FINDINGS: Post underlying sternotomy. Left ICD. Valvular replacement changes. Mild bilateral vascular congestio n with small pleural effusions, minimal horizontal linear parenchymal changes in the left lower lung zone, but improving from 12-18-17. IMPRESSION: Improving bilateral vascular congestion and small pleural effusions. Some persistent minimal left inf rahilar parenchymal change. Continued short term follow up for clearing or stability. POS: RAQUEL
--- NOTE | 2017-12-19 10:13 | EKG ---
Test Reason : POST CABG Blood Pressure : / mmHG Vent. Rate : 065 BPM Atrial Rate : 065 BPM P-R Int : 000 ms QRS Dur : 186 ms QT Int : 520 ms P-R-T Axes : 000 -89 078 degrees QTc Int : 540 ms AV sequential or dual chamber electronic pacemaker When compared with ECG of 17-DEC-2017 12:10, Vent. rate has decreased BY 5 BPM Confirmed by RODGER VARELA ([id number]) on 12/19/2017 10:13:44 AM Referred By: DEEPTI Confirmed By:RODGER VARELA
--- NOTE | 2017-12-19 11:02 | PRG ---
DATE OF SERVICE: 12/19/2017. SUBJECTIVE: Mr. Paniagua is doing great following his valve replacement and bypass. He is sitting up in a chair, no complaints. OBJECTIVE: VITAL SIGNS: Blood pressure 94/45, pulse is in the 70 range in sinus rhythm, it is atrial sense d ventricular paced. LUNGS: Clear. CARDIAC: Normal S1 and S2. ASSESSMENT: 1. Status post bypass surgery with valve replacement. 2. Previous pacemaker in normal function. PLAN: 1. Continue current medical regimen. 2. beta blockers when feasible. 3. He is on intravenous antibiotics. We will continue to follow with you.
[2017-12-19] MEDS ORDERED: Insulin Glargine 12 UNITS in Pre-Filled Syringe 1 EACH SC SCH (13:15)
[2017-12-19 14:21] VITALS: BMI 30.7
[2017-12-19] MEDS: Insulin Regular 300 UNITS/3 ML VIAL SC PRN ×2 (16:57→20:33)
[2017-12-19] MEDS ORDERED: Furosemide 40 MG/4 ML VIAL SLOW IVP SCH (17:15)
[2017-12-19] MEDS: Montelukast Sodium 10 mg Tablet PO SCH (20:36)
[2017-12-19] MEDS: Tamsulosin HCl 0.4 MG CAP PO SCH (20:37)
[2017-12-19] MEDS ORDERED: Tamsulosin HCl 0.4 MG CAP PO SCH (21:00)
[2017-12-19] MEDS ORDERED: Montelukast Sodium 10 mg Tablet PO SCH (21:00)
[2017-12-19] MEDS: TUMERIC CURCUMIN PO SCH ×2 (22:41→22:42)
[2017-12-20] MEDS: Ketorolac Tromethamine 30 MG/ML VIAL IVP SCH ×2 (00:58→05:28)
[2017-12-20 05:07] LABS: #Eosinphils 0.4 thou/uL (0.0-0.7); #Lymphocytes 1.1 thou/uL (1.20-3.40); #Monocytes 0.8 thou/uL (0.11-0.59); #Neutrophils 7.8 thou/uL (1.40-6.50); %Basophils 0.4 % (0.0-1.0); %Eosinophils 4.2 % (0.0-10.0); %Lymphocytes 10.4 % (21.0-51.0); %Monocytes 8.2 % (0.0-10.0); %Neutrophils 76.8 % (42.0-75.0); Hemoglobin 8.8 g/dL (14.0-18.0); Mean Corpuscular HGB CONC 32.6 g/dL (32.0-36.0); Mean Corpuscular Volume 94.9 fL (78.0-98.0); Mean Platelet Volume 8.2 fL (7.4-10.4); Platelet Count 127 thou/uL (130-400); RBC Distribution Width 14.6 % (11.5-14.5); Red Blood Cell (RBC) Count 2.83 mill/uL (4.70-6.10); White Blood Cell (WBC) Count 10.2 thou/uL (4.8-10.8)
[2017-12-20 05:12] LABS: Anion Gap 14 mmol/L (10-20); BUN (Urea Nitrogen) 31 mg/dL (8.4-25.7); Calc. Creatinine Clearance 44 mL/min (70-130); Calcium 8.2 mg/dL (7.8-10.44); Carbon Dioxide 20 mmol/L (23-31); Chloride 103 mmol/L (98-107); Estimated GFR-MDRD 45; Glucose 146 mg/dL (83-110); Sodium 133 mmol/L (136-145)
[2017-12-20] MEDS: HYDROcodone/Acetaminophen 5/325 mg Tablet PO PRN ×2 (05:29→20:18)
[2017-12-20] MEDS: Potassium Chloride 20 MEQ/100 ML PREMIX BAG IVPB PRN (06:29)
[2017-12-20] MEDS ORDERED: Furosemide 40 MG/4 ML VIAL SLOW IVP SCH (06:45)
[2017-12-20] MEDS: Atorvastatin Calcium 40 MG TAB PO SCH (08:40)
[2017-12-20] MEDS: Calcium Carbonate 500 MG TAB PO SCH ×2 (08:41→20:17)
[2017-12-20] MEDS: Dutasteride 0.5 MG CAP PO SCH (08:41)
[2017-12-20] MEDS: Multivit, Therapeutic 1 TAB PO SCH (08:41)
[2017-12-20] MEDS: Aspirin 325 MG TAB PO SCH (08:41)
[2017-12-20] MEDS: Hydrochlorothiazide 25 MG TAB PO SCH (08:41)
[2017-12-20] MEDS: Glimepiride 1 MG TAB PO SCH (08:41)
[2017-12-20] MEDS: Ubidecarenone 50 MG CAP PO SCH (08:41)
[2017-12-20] MEDS: Magnesium 2 GM/50 ML 2 GM in Premix Bag 1 BAG IVPB SCH (08:44)
--- NOTE | 2017-12-20 09:10 | RAD ---
PORTABLE UPRIGHT FRONTAL CHEST RADIOGRAPH: DATE: 12/20/2017. COMPARISON: 12/19/2017. HISTORY: Evaluate chest following open heart surgery. FINDINGS: There is a vascular catheter present, distal tip overlying the region of the right atrium. Multiple drainage catheters overlie the mediastinum. Midline sternotomy wires and mechanical valve noted. St able transvenous pacing device. Shallow inspiration limits detailed assessment. There is pulmonary vascular congestion. There is haziness increased density in the medial left base which may represent infiltrate or volume loss. Continued followup advised. There is atherosclerotic calcification in t he aortic arch. IMPRESSION: Postoperative changes as detailed above. Pulmonary vascular congestion and nonspecific increased den sity in the medial left base, for which, for which followup is advised. POS: OFF
--- NOTE | 2017-12-20 09:13 | PQF ---
CLINICAL DOCUMENTATION IMPROVEMENT CLARIFICATION FORM: ICD-10 Updated PLEASE DO AN ADDENDUM TO THE PROGRESS NOTE WITH ANY DOCUMENTATION UPDATES OR ADDITIONS AND CARRY THROUGH TO DC SUMMARY. THANK YOU. DATE: 12/20 ATTN: DR. YIFAN TATUM Please exercise your independent, professional judgment in responding to the clarification form. Clinical indicators are provided on the bottom of this form for your review. Please check appropriate box(s): [ ] Acute Renal Failure (ARF) / Acute Kidney Injury (KELLY) [ ] Other Etiology or underlying conditions related to the diagnosis of ARF/ KELLY: [ ] Other: [ ] Other diagnosis [ ] Unable to determine Acute Renal Failure/Acute Kidney Failure defined as: Increases in SCr by (>) 0.3 mg/dl within 48 hours OR- Increases in SCr by (>) 1.5 times baseline, known or presumed to have occurred within the prior 7 days OR- Urine volume < 0.5 ml/kg/hour for 6 hours (KDIGO supplement 2012 for RIFLE/YUE criteria) For continuity of documentation, please document condition throughout progress notes and discharge summary. Thank You. CLINICAL INDICATORS - SIGNS / SYMPTOMS / LABS BUN: 21 CR: 0.80 GFR: >90 (12/18) 27 1.07 65 (12/19) 31 1.47 45 (12/20) RISK FACTORS: S/P AVR & CABG PO DIURETIC - HCTZ (12/19 - PRESENT) ONE DOSE IV LASIX (12/20) TREATMENTS: SERIAL LAB (12/18 - PRESENT) THANK YOU! Yok[employer] (This form is maintained as a part of the permanent medical record) 2014 [employer]. All Rights Reserved Yokasta Damon RN, BSN [email or web address] Office: [phone] [facility]
[2017-12-20] MEDS: Insulin Regular 300 UNITS/3 ML VIAL SC PRN ×2 (11:08→20:34)
--- NOTE | 2017-12-20 14:04 | PRG ---
DATE OF SERVICE: 12/20/2017 SUBJECTIVE: Mr. Paniagua is sitting up in a chair, is doing well. No chest pain of any anginal charac ter. He is not short of breath. PHYSICAL EXAMINATION: VITAL SIGNS: His blood pressure is 102/51; pulse is 66, it is regular, it is atrial sensed and ventr icular paced. LUNGS: Clear. CARDIAC: Normal S1 and normal S2. ASSESSMENT: 1. Status post bypass surgery and aortic valve replacement, doing well. 2. Previous pacemaker functioning normally. PLAN: Continue current medical regimen.
[2017-12-20] MEDS ORDERED: Furosemide 20 MG TAB PO SCH (17:00)
[2017-12-20] MEDS ORDERED: Metolazone 5 MG TAB PO SCH (17:00)
[2017-12-20] MEDS: Montelukast Sodium 10 mg Tablet PO SCH (20:17)
[2017-12-20] MEDS: Tamsulosin HCl 0.4 MG CAP PO SCH (20:17)
[2017-12-21 05:20] LABS: #Eosinphils 0.4 thou/uL (0.0-0.7); #Monocytes 0.7 thou/uL (0.11-0.59); #Neutrophils 6.9 thou/uL (1.40-6.50); %Basophils 0.4 % (0.0-1.0); %Eosinophils 4.4 % (0.0-10.0); %Lymphocytes 11.2 % (21.0-51.0); %Monocytes 7.4 % (0.0-10.0); %Neutrophils 76.7 % (42.0-75.0); Hemoglobin 9.1 g/dL (14.0-18.0); Mean Corpuscular HGB CONC 32.8 g/dL (32.0-36.0); Mean Corpuscular Hemoglobin 30.9 pg (27.0-31.0); Mean Platelet Volume 7.9 fL (7.4-10.4); Platelet Count 132 thou/uL (130-400); RBC Distribution Width 14.2 % (11.5-14.5); Red Blood Cell (RBC) Count 2.94 mill/uL (4.70-6.10)
[2017-12-21 05:30] LABS: Anion Gap 12 mmol/L (10-20); BUN (Urea Nitrogen) 16 mg/dL (8.4-25.7); Calc. Creatinine Clearance 49 mL/min (70-130); Calcium 8.5 mg/dL (7.8-10.44); Carbon Dioxide 21 mmol/L (23-31); Chloride 101 mmol/L (98-107); Estimated GFR-MDRD 52; Glucose 140 mg/dL (83-110); Potassium 4.4 mmol/L (3.5-5.1); Sodium 130 mmol/L (136-145)
[2017-12-21] MEDS ORDERED: diphenhydrAMINE 25 MG CAP PO PRN (07:14)
[2017-12-21] MEDS ORDERED: Nitroglycerin 0.4 MG TAB (25 Tab Bottle) SL PRN (07:14)
[2017-12-21] MEDS ORDERED: Bisacodyl 10 MG SUPP PR PRN (07:14)
[2017-12-21] MEDS ORDERED: Mineral Oil ENEMA PR PRN (07:14)
[2017-12-21] MEDS ORDERED: Artificial Tears 18 DROP/0.9 ML EA EYE PRN (07:14)
[2017-12-21] MEDS ORDERED: Guaifenesin DM 100-10/5 ML UDCUP PO PRN (07:14)
[2017-12-21] MEDS ORDERED: Zolpidem Tartrate 5 MG TAB PO PRN (07:14)
[2017-12-21] MEDS ORDERED: Mag-Al 1200 mg/1200 mg/30 ML UDCUP PO PRN (07:14)
[2017-12-21] MEDS ORDERED: Bisacodyl 5 MG TAB PO PRN (07:14)
[2017-12-21] MEDS: Potassium Chloride 10 MEQ TAB PO SCH (07:58)
--- NOTE | 2017-12-21 08:13 | RAD ---
SINGLE VIEW CHEST: HISTORY: Status post open heart surgery. COMPARISON: 12/20/2017 FINDINGS: A single view of the chest shows an enlarged but stable cardiomediastinal silhouette. The patient is status post sternotomy. The pacemaker is unchanged in position. The central venous catheter has be en removed. There may be a small left pleural effusion. IMPRESSION: Stable examination. POS: CET
[2017-12-21] MEDS: Glimepiride 1 MG TAB PO SCH ×2 (08:17→08:18)
[2017-12-21] MEDS: Calcium Carbonate 500 MG TAB PO SCH ×2 (08:18→20:44)
[2017-12-21] MEDS: Furosemide 20 MG TAB PO SCH ×2 (08:18→15:32)
[2017-12-21] MEDS: Atorvastatin Calcium 40 MG TAB PO SCH (08:19)
[2017-12-21] MEDS: Dutasteride 0.5 MG CAP PO SCH (08:19)
[2017-12-21] MEDS: Aspirin 325 mg Enteric Coated Tablet PO SCH (08:19)
[2017-12-21] MEDS: Hydrochlorothiazide 25 MG TAB PO SCH (08:19)
[2017-12-21] MEDS: Multivit, Therapeutic 1 TAB PO SCH (08:19)
[2017-12-21] MEDS: Ubidecarenone 50 MG CAP PO SCH (08:19)
--- NOTE | 2017-12-21 13:20 | PQF ---
CLINICAL DOCUMENTATION IMPROVEMENT CLARIFICATION FORM: ICD-10 Updated PLEASE DO AN ADDENDUM TO THE PROGRESS NOTE WITH ANY DOCUMENTATION UPDATES OR ADDITIONS AND CARRY THROUGH TO DC SUMMARY. THANK YOU. DATE: ATTN: DR. YIFAN TATUM QUERY RESUBMITTED FIRST QUERY SIGNED BUT UNANSWERED. Please exercise your independent, professional judgment in responding to the clarification form. Clinical indicators are provided on the bottom of this form for your review. Please check appropriate box(s): [ ] Acute Renal Failure (ARF) / Acute Kidney Injury (KELLY) [ ] Other Etiology or underlying conditions related to the diagnosis of ARF/ KELLY: [ ] Other: [ ] Other diagnosis [ ] Unable to determine Acute Renal Failure/Acute Kidney Failure defined as: Increases in SCr by (>) 0.3 mg/dl within 48 hours OR- Increases in SCr by (>) 1.5 times baseline, known or presumed to have occurred within the prior 7 days OR- Urine volume < 0.5 ml/kg/hour for 6 hours (KDIGO supplement 2012 for RIFLE/YUE criteria) For continuity of documentation, please document condition throughout progress notes and discharge summary. Thank You. CLINICAL INDICATORS - SIGNS / SYMPTOMS / LABS BUN: 21 CR: 0.80 GFR: >90 (12/18) 27 1.07 65 (12/19) 31 1.47 45 (12/20) 16 1.30 52 (12/21) RISK FACTORS: S/P AVR & CABG PO DIURETIC - HCTZ (12/19 - PRESENT) 1X DOSE IV LASIX (12/20) TREATMENTS: SERIAL LAB (12/18 - PRESENT) THANK YOU! [employer] (This form is maintained as a part of the permanent medical record) 2014 [employer]. All Rights Reserved Yokasta Damon RN, BSN [email or web address] Office: [phone] [facility]
--- NOTE | 2017-12-21 15:34 | PRG ---
DATE OF SERVICE: 12/21/2017 SUBJECTIVE: Mr. Paniagua is doing well. He is up in the chair, feels well, no complaints. PHYSICAL EXAMINATION: VITAL SIGNS: Blood pressure is low 92/53, pulse 80, its regular. LUNGS: Clear. CARDIAC: Normal S1, normal S2. ABDOMEN: Soft, nontender. EXTREMITIES: No edema. ASSESSMENT: Status post aortic valve replacement and bypass surgery. He is mildly anemic. Hemoglob in is 9.1. His renal insufficiency improving from stage 3 to stage 2 with estimated GFR of now 52. PLAN: 1. Blood pressure is adequate. Still too low to start beta blockers. 2. He has been getting diuresed. Continue cardiac rehabilitation.
[2017-12-21] MEDS: Montelukast Sodium 10 mg Tablet PO SCH (20:44)
[2017-12-21] MEDS: Tamsulosin HCl 0.4 MG CAP PO SCH (20:44)
[2017-12-22] MEDS: Potassium Chloride 10 MEQ TAB PO SCH (09:06)
[2017-12-22] MEDS: Atorvastatin Calcium 40 MG TAB PO SCH (09:06)
[2017-12-22] MEDS: Aspirin 325 mg Enteric Coated Tablet PO SCH (09:06)
[2017-12-22] MEDS: Furosemide 20 MG TAB PO SCH ×2 (09:07→13:46)
[2017-12-22] MEDS: Ubidecarenone 50 MG CAP PO SCH (09:07)
[2017-12-22] MEDS: Metoprolol Tartrate 25 MG TAB PO SCH ×2 (09:07→21:17)
[2017-12-22] MEDS: Dutasteride 0.5 MG CAP PO SCH (09:08)
[2017-12-22] MEDS: Hydrochlorothiazide 25 MG TAB PO SCH (09:08)
[2017-12-22] MEDS: Multivit, Therapeutic 1 TAB PO SCH (09:08)
[2017-12-22] MEDS: Calcium Carbonate 500 MG TAB PO SCH ×2 (09:09→21:26)
[2017-12-22] MEDS: Glimepiride 1 MG TAB PO SCH (10:03)
[2017-12-22] MEDS ORDERED: Metolazone 5 MG TAB PO SCH (10:15)
--- NOTE | 2017-12-22 10:15 | PDOC.CTH ---
<Windy Lay - Last Filed: 12/22/17 10:56> Cardiology Progress Note - Subjective C/O up urinating all night after catheter removal. No CP/SOB. Up to chair currently. - Objective Vital Signs Temp Pulse Resp BP BP Pulse Ox 12/22/17 07:59 98.1 F 89 18 115/57 L 95 12/22/17 06:51 96 12/22/17 04:00 98.6 F 87 19 128/60 97 Weight 200 lb 2.876 oz 12/21/17 12/22/17 12/23/17 06:59 06:59 05:59 Intake Total 1300 1700 Output Total 2430 4630 Balance -1130 -2930 - Physical Examination General/Neuro: alert & oriented x3 Neck: no JVD present Lungs: CTA Heart: RRR Abdomen: NT/ND Extremities: + edema B - Telemetry Telemetry Rhythm: -KNITTED GARMENT FINISHER - Labs Result Diagrams: 12/21/17 05:03 12/21/17 05:03 - Assessment/Plan 1. CAD s/p CABG 2. Severe s/p AVR 3. Mild volume overload Continue diuretics. BP low yesterday. Improved now. Will add bblockers when able to tolerate. Continue PT. <Jero Nagy - Last Filed: 12/22/17 16:45> Cardiology Progress Note - Objective Vital Signs Temp Pulse Pulse Pulse Resp BP BP 12/22/17 16:26 72 90 119/53 L 119/57 L 12/22/17 12:51 97 90 123/59 L 111/56 L 12/22/17 12:23 97.9 F 84 18 12/22/17 07:59 98.1 F 89 18 12/22/17 06:51 BP Pulse Ox Pulse Ox Pulse Ox 12/22/17 16:26 97 99 12/22/17 12:51 96 95 12/22/17 12:23 112/64 99 12/22/17 07:59 115/57 L 95 12/22/17 06:51 96 Weight 193 lb 11.2 oz 12/21/17 12/22/17 12/23/17 06:59 06:59 05:59 Intake Total 1300 1700 Output Total 2430 4630 Balance -1130 -2930 - Labs Result Diagrams: 12/21/17 05:03 12/21/17 05:03 - Assessment/Plan Pt seen and examined. Changes as above.
[2017-12-22] MEDS: Insulin Regular 300 UNITS/3 ML VIAL SC PRN ×2 (12:34→18:06)
[2017-12-22] MEDS: Montelukast Sodium 10 mg Tablet PO SCH (21:17)
[2017-12-22] MEDS: Tamsulosin HCl 0.4 MG CAP PO SCH (21:17)
[2017-12-23] MEDS: Ubidecarenone 50 MG CAP PO SCH (08:29)
[2017-12-23] MEDS: Potassium Chloride 10 MEQ TAB PO SCH (08:29)
[2017-12-23] MEDS: Dutasteride 0.5 MG CAP PO SCH (08:31)
[2017-12-23] MEDS: Calcium Carbonate 500 MG TAB PO SCH (08:31)
[2017-12-23] MEDS: Aspirin 325 mg Enteric Coated Tablet PO SCH (08:32)
[2017-12-23] MEDS: Furosemide 20 MG TAB PO SCH (08:32)
[2017-12-23] MEDS: Atorvastatin Calcium 40 MG TAB PO SCH (08:33)
[2017-12-23] MEDS: Metoprolol Tartrate 25 MG TAB PO SCH (08:33)
[2017-12-23] MEDS: Multivit, Therapeutic 1 TAB PO SCH (08:33)
[2017-12-23] MEDS: Hydrochlorothiazide 25 MG TAB PO SCH (08:33)
[2017-12-23 08:47] VITALS: BP 115/59; TEMP 97.3
--- NOTE | 2017-12-23 09:29 | PDOC.CTH ---
Cardiology Progress Note - Subjective No complaints. Up OOB and showered this morning. Going home today. - Objective Vital Signs Temp Pulse Resp BP BP Pulse Ox 12/23/17 08:05 97.3 F L 86 20 115/59 L 94 L 12/23/17 04:00 99.6 F 89 20 113/53 L 95 12/22/17 23:10 98.4 F 89 20 126/60 92 L Weight 190 lb 12.8 oz 12/22/17 12/23/17 12/24/17 07:59 06:59 06:59 Intake Total Output Total Balance - Physical Examination General/Neuro: alert & oriented x3 Neck: no JVD present Lungs: CTA Heart: RRR Abdomen: NT/ND - Telemetry Telemetry Rhythm: SR - Labs Result Diagrams: 12/21/17 05:03 12/21/17 05:03 - Assessment/Plan 1. CAD s/p CABG 2. Severe s/p AVR Doing well. BP stable. Able to ambulate independently. Discharged today per [facility]. Will contact patient for f/u instructions.
--- NOTE | 2017-12-23 10:28 | DIS ---
DATE OF ADMISSION: 12/18/2017 DATE OF DISCHARGE: 12/23/2017 DIAGNOSES: 1. Coronary artery disease. 2. Aortic stenosis. 3. Diabetes mellitus. 4. Hypertension. 5. Dyslipidemia. PROCEDURES: 1. Aortic valve replacement with a #23 Magna bioprosthetic valve. 2. Coronary artery bypass grafting x2. A. Reversed saphenous vein to 2.0 mm LAD. B. Reverse saphenous vein to 1.25 mm PDA. DESCRIPTION OF HOSPITAL STAY: Mr. Paniagua was brought into the hospital for elective AVR and CABG. Rosy brown has done well postoperatively. He has had no rhythm disturbances. At the time of discharge, he is ambulatory, tolerating a regular diet, having good bowel and bladder function. Incisions are clean and dry without evidence of infection. DISCHARGE MEDICATIONS: Include, 1. Aspirin 325 mg daily. 2. Lipitor 40 mg daily. 3. Avodart 0.5 mg daily. 4. Glimepiride 1 mg daily. 5. Glucosamine 2000 mg b.i.d. 6. Hydrochlorothiazide 25 mg q.a.m. 7. 2 capsules b.i.d. 8. Glucophage 2000 mg b.i.d. 9. Singulair at bedtime. 10. Flomax 0.4 mg at bedtime. 11. CoQ10 q.a.m. 12. Lasix 20 mg b.i.d. for 10 days. 13. Potassium 10 mEq daily for 10 days. 14. Era 5/325 1-2 q.6 hours p.r.n. pain. 15. Lopressor 12.5 mg b.i.d. FOLLOWUP: Follow up with me in 2 weeks, Dr. Pierre in a month.
--- NOTE | 2017-12-24 14:23 | ADD-OP ---
THIS IS TO REPLACE THE PREVIOUS OPERATIVE REPORT DONE ON 12/18/2017. DATE OF PROCEDURE: 12/18/2017 PREOPERATIVE DIAGNOSES: 1. Aortic stenosis. 2. Coronary artery disease. 3. Hypertension. 4. Dyslipidemia. 5. Diabetes mellitus. 6. History of skin cancer. POSTOPERATIVE DIAGNOSES: 1. Aortic stenosis. 2. Coronary artery disease. 3. Hypertension. 4. Dyslipidemia. 5. Diabetes mellitus. 6. History of skin cancer. PROCEDURES: 1. Aortic valve replacement with a #23 Magna bioprosthetic valve. 2. Coronary artery bypass grafting x2. A. Reversed saphenous vein to 2.0 mm LAD -- good conduit and target. B. Reversed saphenous vein to 1.25 mm PDA -- good conduit and small target. SURGEON: Phoenix Panda M.D. and Roque Francis M.D. ANESTHESIA: General endotracheal, Jaycob White M.D. PUMP TIME: 108 minutes. CROSS-CLAMP TIME: 90 minutes. LOW CORE TEMP: 32-degree Celsius. BOBBIN INSPECTOR: Sugey Alvarez. DRAINS: 24-Swiss chest tubes x3. DRIPS: None. TRANSFUSIONS: None. DESCRIPTION OF DETAIL: After operative consent was obtained, the patient was brought to the operating room and placed in the supine position on the operating room table. Appropriate anesthetic monitor was placed and general endotracheal anesthesia induced. Chest, abdomen and legs were prepped and draped in the usual sterile fashion. Greater saphenous vein was harvested from the left leg using skip incisions. Wounds were irrigated and closed in layers. Median sternotomy was performed. Left internal mammary artery was initially harvested from the chest wall, but was fixed. The patient had previous rib fractures and the inflammation surrounding the mammary made it worrisome for harvest. Mammary was ligated proximally and distally. The patient was systemically heparinized. Thymic fat and pericardium were then divided with electrocautery. After adequate heparinization, aortic and atrial cannulation was performed. Retrograde prime was performed. The patient was then placed on cardiopulmonary bypass. Left ventricular sump drain was placed to the right superior pulmonary vein. Distal targets were marked. Aortic cross-clamp was applied and antegrade sanguinous cardioplegic arrest obtained. One liter of antegrade cold [place] cardioplegia was given. Topical cold solution was used. Reverse saphenous vein was anastomosed to PDA in its attachment with 7-0 Prolene suture. Anastomosis was tested and was hemostatic. Reverse saphenous vein was anastomosed to the LAD in end-to-side fashion with running 7-0 Prolene suture. Anastomosis was tested and was hemostatic. 300 mL of antegrade [place] cardioplegia was given including down the grafts. Carbon dioxide was infused in the pericardial well throughout the open aortic portion of the procedure. A transverse hockey stick aortotomy was performed. The valve was inspected. It was a 3-leaflet valve. All 3 leaflets were heavily calcified at the hinged points. The noncoronary cusp was completely replaced with calcium and immobile. Leaflets were debrided. Annulus was decalcified. Valve was measured at 23. The ventricle was copiously irrigated. Pledgetted 2-0 Ethibond sutures were placed throughout the aortic annulus. These were subsequently passed through the valve and secured with core knots. The valve seated nicely. Aortotomy was closed with a running pledgeted dual layer 4-0 Prolene suture. BioGlue was used. Punch sites were created on the aorta and individual 6-0 Prolene anastomosis created between saphenous veins and the aortic root. Crossclamp was removed after de-airing maneuvers. The patient was warmed and weaned from cardiopulmonary bypass. After resumption of a paced rhythm, good hemodynamics and temperature greater than 36.5, bypass was discontinued. Transfusions were given. Protamine was administered. Decannulation was performed and pursestring sutures secured. The left ventricular sump drain was removed and its pursestring sutures secured. Aortic root vent was removed and its pursestring sutures secured. After adequate hemostasis has been obtained, 24-Swiss chest tubes were placed, one in each pleural cavity and one in mediastinum. On the left chest wall, the costal cartilages where the fracture sites previously were had from the sternum. These were repaired with individual #5 wire. Sternum was then reapproximated with #7 wire. Vancomycin paste was placed and platelet-rich plasma placed on the sternal edges and sternum closed. Wounds were irrigated, treated with platelet-poor plasma and closed in multiple layers. Needle, sponge and instrument counts were all reported correct at the end of the procedure. [facility]
== END 2017-12-23 12:21 | disposition home or self-care (01) | DRG 221 ==
LOC: SURG A 12-18 05:36 → CCU 12-18 10:28 → 2NO 12-21 08:59
PROVIDERS: ADMIT Thoracic Surgery (Cardiothoracic Vascular Surgery); ATTEND Thoracic Surgery (Cardiothoracic Vascular Surgery)
PROC: 02RF08Z Replacement of Aortic Valve with Zooplastic Tissue, Open Approach (ICD-10-PCS; principal; 2017-12-18)
PROC: 0211093 Bypass Coronary Artery, Two Arteries from Coronary Artery with Autologous Venous Tissue, Open Approach (ICD-10-PCS; 2017-12-18)
DX: I35.0 Nonrheumatic aortic (valve) stenosis (principal); I25.10 Atherosclerotic heart disease of native coronary artery without angina pectoris; Z95.5 Presence of coronary angioplasty implant and graft; M19.90 Unspecified osteoarthritis, unspecified site; E11.9 Type 2 diabetes mellitus without complications; I10 Essential (primary) hypertension; Z96.651 Presence of right artificial knee joint; Z85.828 Personal history of other malignant neoplasm of skin; Z95.0 Presence of cardiac pacemaker; Z79.899 Other long term (current) drug therapy; Z79.84 Long term (current) use of oral hypoglycemic drugs; Z79.82 Long term (current) use of aspirin; E78.2 Mixed hyperlipidemia; C67.9 Malignant neoplasm of bladder, unspecified; Z87.891 Personal history of nicotine dependence; Z01.818 Encounter for other preprocedural examination
CPT/HCPCS: 36415; 36416; 36430; 71045; 71046; 80048; 82805; 82947; 85025; 85027; 85610; 85730; 86850; 86900; 86901; 93005; 93010; 93798; 94640; C1769; J0131; J1642; J1644; J1815; J1885; J1940; J2001; J2150; J2250; J2405; J2440; J2720; J3010; J3370; J3475; J3480; J7050; J7620; P9045; S0017; S0028

== ENCOUNTER 2018-01-02 12:43 | Outpatient (CLI) | payer MEDICARE ==
--- NOTE | 2018-01-02 14:38 | RAD ---
LUMBAR SPINE TWO VIEWS: 01/02/2018 HISTORY: Injury. Trauma. Pain. COMPARISON: 10/04/2017 FINDINGS: There is evidence of prior multilevel bilateral laminectomy, including the L2 through L5 levels. The re is extensive atherosclerotic calcification of the abdominal aorta. There is mild stable anterolis thesis of L4 on L5, measuring approximately 6 mm. There is multilevel disk space narrowing and degen erative endplate change with anterior osteophyte formation throughout the lumbar spine, most prominen t at L3-L4 and L5-S1. No acute osseous abnormality is seen. There is prominent lateral osteophyte f ormation within the lumbar spine, especially on the left at L1-L2 and at L2-L3 and on the right at L2 -L3 and L3-L4. IMPRESSION: Extensive postoperative and degenerative change noted within the lumbar spine, similar when compared to the prior examination. POS: [facility]
== END 2018-01-02 12:44 | disposition home or self-care (01) ==
LOC: BICRAD 12:43
PROVIDERS: ATTEND Surgery
DX: M54.5 Low back pain (principal); M47.816 Spondylosis without myelopathy or radiculopathy, lumbar region; Z98.890 Other specified postprocedural states
CPT/HCPCS: 72100

== ENCOUNTER 2018-01-14 14:15 | Outpatient (CLI) | payer MEDICARE ==
--- NOTE | 2018-01-14 15:58 | RAD ---
TWO VIEW CHEST: Comparison: 12-21-17 Indication: Dyspnea. FINDINGS: Mild pleural based density of the inferior left chest is present consistent with a small effusion. Po st-operative cardiac silhouette is stable in size. Left sided cardiac pacing device remains. Lungs ar e mildly hyperinflated. IMPRESSION: Small volume left pleural effusion with mild adjacent atelectasis. POS: [facility]
== END 2018-01-14 14:16 | disposition home or self-care (01) ==
LOC: RAD 14:15
PROVIDERS: ATTEND Thoracic Surgery (Cardiothoracic Vascular Surgery)
DX: C67.9 Malignant neoplasm of bladder, unspecified (principal); J98.11 Atelectasis; J90 Pleural effusion, not elsewhere classified
CPT/HCPCS: 71046

== ENCOUNTER 2018-05-09 10:04 | Outpatient (CLI) | payer MEDICARE ==
[2018-05-09] MEDS ORDERED: Sodium Chloride 0.9% 15 ML NEB ONE (19:54)
--- NOTE | 2018-05-09 22:47 | HP ---
HISTORY OF PRESENT ILLNESS: Mr. Rafat Paniagua is a very pleasant 88-year-old gentleman accompanied by his , daughter, and son-in-law, who presents to the [facility] for evaluation of a wound of the left anterior lower leg. The patient's daughter states that percutaneous revascularization of the left lower extremity was attempted 3 days ago. She states that percutaneous revascularization of the left lower extremity was not able to be accomplished. The patient was subsequently referred to the Wound Center by Dr. Monahan. The patient has no other complaints today. He denies any fever or chills. PAST MEDICAL HISTORY: 1. Coronary artery disease. 2. Degenerative joint disease. 3. Hypertension. 4. Gastroesophageal reflux disease. 5. History of pancreatic cyst. 6. Diabetes mellitus. 7. Aortic stenosis. 8. Peripheral vascular disease. PAST SURGICAL HISTORY: 1. Bilateral rotator cuff repair. 2. Surgical excision of bladder tumor. 3. Left total knee arthroplasty. 4. Pacemaker placement. 5. Left Achilles tendon repair. 6. Right total knee arthroplasty. 7. 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 8. Excision of left ear lesions x2. 9. Left inguinal herniorrhaphy. 10. 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 11. 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 12. Pacemaker generator replacement. 13. Laminectomy. 14. Coronary artery bypass grafting/aortic valve replacement. MEDICATIONS: 1. Pantoprazole. 2. Vascepa. 3. Eliquis. 4. Torsemide. 5. Flomax. 6. Lipitor. 7. Slow-Mag. 8. Aspirin 81 mg. 9. Avodart. 10. Singulair. 11. Metformin. 12. Glimepiride. 13. Folic acid. 14. Centrum Silver. 15. Calcium. 16. B complex. 17. Coenzyme Q10. 18. Glucosamine. 19. Iron. 20. PreserVision. 21. Vitamin D3. 22. Turmeric/curcumin. ALLERGIES: NO KNOWN DIAGNOSED ALLERGIES. SOCIAL HISTORY: Social history is significant for tobacco use beginning at age 19. The patient states that he stopped smoking in 1995. Over this period of time, the patient admits to tobacco use of 1 pack of cigarettes per week and 7 cigars per month. The patient admits to the consumption of 2 drinks per day for 40 years. FAMILY HISTORY: Negative for diabetes mellitus or coronary artery disease. PHYSICAL EXAMINATION: VITAL SIGNS: Temperature 97.4, pulse 95, blood pressure 141/62, Accu-Chek 131. GENERAL: An 88-year-old gentleman, lying on table in examination room, in no acute distress. HEENT: Normocephalic. NECK: No nuchal rigidity. CHEST: Clear to auscultation. CV: Regular rate and rhythm. ABDOMEN: Soft. EXTREMITIES: A wound of the left anterior lower leg is present consisting of multiple superficial small weeping lesions consistent with venous insufficiency. No purulent drainage is associated with any of the lesions of the left anterior lower leg. Erythema of the skin of the left anterior lower leg is present consistent with stasis changes. No maceration of the skin surrounding the weeping lesions is noted. A dorsalis pedis pulse or posterior tibial pulse is not palpable on the left. [id number] edema of the left foot and lower leg is present on exam today. ASSESSMENT AND PLAN: 1. Multiple superficial small weeping lesions of left anterior lower leg as described above. Dressing changes of Xeroform gauze, followed by an ABD, Webril, and an Mitchell bandage will be initiated today. These dressing changes are to be performed 3 times per week after cleansing and irrigation with the assistance of Home Health. No antibiotics will be prescribed today based upon the appearance of the left lower extremity. I will see Mr. Paniagua again in 1 to 2 weeks. The patient and his family understand and are in agreement with the preceding treatment plan. 2. Coronary artery disease. 3. Degenerative joint disease. 4. Hypertension. 5. Gastroesophageal reflux disease. 6. History of pancreatic cyst. 7. Diabetes mellitus. The patient's Accu-Chek in clinic today is 131. The patient and his family have been told that for optimal wound healing, the patient's blood glucoses should remain below 150. 8. Aortic stenosis. 9. Peripheral vascular disease. Job ID: [id number]
== END 2018-05-09 10:05 | disposition home or self-care (01) ==
LOC: WCC 10:04
PROVIDERS: ATTEND Family Medicine
DX: L98.8 Other specified disorders of the skin and subcutaneous tissue (principal); I25.10 Atherosclerotic heart disease of native coronary artery without angina pectoris; M19.90 Unspecified osteoarthritis, unspecified site; I10 Essential (primary) hypertension; K21.9 Gastro-esophageal reflux disease without esophagitis; E11.51 Type 2 diabetes mellitus with diabetic peripheral angiopathy without gangrene; I35.0 Nonrheumatic aortic (valve) stenosis
CPT/HCPCS: 97602; 99203; A4218; G0463

== ENCOUNTER 2018-05-23 10:25 | Outpatient (CLI) | payer MEDICARE ==
--- NOTE | 2018-05-23 12:11 | PRG ---
DATE OF SERVICE: 05/23/2018 HISTORY: Mr. Rafat Paniagua is a very pleasant 88-year-old gentleman, accompanied by his , who presents to the Wound Center for evaluation of a wound of the left anterior lower leg. The patient's daughter previously stated that percutaneous revascularization of the left lower extremity was attempted 3 days prior to the patient's initial presentation to the Wound Center. She stated that percutaneous revascularization of the left lower extremity was not able to be accomplished. The patient was subsequently referred to the Wound Center by Dr. Monahan. The patient has been receiving dressing changes of Xeroform gauze followed by an ABD, Kerlix, and an Mitchell bandage 3 times per week after cleansing and irrigation with the assistance of Home Health. 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 PHYSICAL EXAMINATION: VITAL SIGNS: Temperature 97.4, pulse 82, respirations 18, blood pressure 149/67, Accu-Chek 121. EXTREMITIES: The wound of the left anterior lower leg has markedly improved in its appearance since the patient's last visit. No purulent drainage is associated with the wound. Erythema of the skin of the left anterior lower leg is present consistent with stasis changes. No maceration of the skin of the left anterior lower leg is noted. No significant edema of the left foot or lower leg is present on exam today. SKIN: A wound of the scalp is present, which measures approximately 3.8 x 3.5 cm. Granulation tissue is present within the wound margins. No purulent drainage is associated with the wound. No erythema of the skin surrounding the wound is present. No maceration of the skin of the periwound is noted. ASSESSMENT AND PLAN: 1. Wound of left anterior lower leg as described above. The patient also has a wound of the left scalp. For the wound of the left anterior lower leg, dressing changes of Xeroform gauze followed by an ABD, Webril or Kerlix, and an Mitchell bandage will be continued 3 times per week after cleansing and irrigation with the assistance of Home Health. For the scalp wound, the patient is to receive dressing changes of Xeroform gauze followed by Bordered gauze also 3 times per week after cleansing and irrigation with the assistance of Home Health. I will see Mr. Paniagua again in 2 weeks. 2. Lymphedema tarda. Arrangements will be made for in-home lymphedema therapy with a pneumatic pump. 3. Coronary artery disease. 4. Degenerative joint disease. 5. Hypertension. 6. Gastroesophageal reflux disease. 7. History of pancreatic cyst. 8. Diabetes mellitus. The patient's Accu-Chek in clinic today is 121. The patient and his have been reminded that for optimal wound healing. The patient's blood glucoses should remain below 150. 9. Aortic stenosis. 10. Peripheral vascular disease. Job ID: [id number]
[2018-05-23] MEDS ORDERED: Sodium Chloride 0.9% 15 ML NEB ONE (18:00)
== END 2018-05-23 10:26 | disposition home or self-care (01) ==
LOC: WCC 10:25
PROVIDERS: ATTEND Family Medicine
DX: S81.802D Unspecified open wound, left lower leg, subsequent encounter (principal); I25.10 Atherosclerotic heart disease of native coronary artery without angina pectoris; M19.90 Unspecified osteoarthritis, unspecified site; I10 Essential (primary) hypertension; K21.9 Gastro-esophageal reflux disease without esophagitis; E11.9 Type 2 diabetes mellitus without complications; I73.9 Peripheral vascular disease, unspecified; I35.0 Nonrheumatic aortic (valve) stenosis; Z87.19 Personal history of other diseases of the digestive system
CPT/HCPCS: A4218

== ENCOUNTER 2018-06-01 17:25 | Inpatient (IN) | payer MEDICARE ==
[2018-06-01] MEDS ORDERED: Ondansetron PF 4 MG/2 ML Vial ONE (18:14)
[2018-06-01 18:40] LABS: Hemoglobin 12.2 g/dL (14.0-18.0); Mean Corpuscular HGB CONC 33.2 g/dL (32.0-36.0); Mean Corpuscular Hemoglobin 28.5 pg (27.0-31.0); Mean Corpuscular Volume 85.9 fL (78.0-98.0); Mean Platelet Volume 8.1 fL (7.4-10.4); Platelet Count 178 thou/uL (130-400); RBC Distribution Width 17.4 % (11.5-14.5); Red Blood Cell (RBC) Count 4.27 mill/uL (4.70-6.10); White Blood Cell (WBC) Count 7.6 thou/uL (4.8-10.8)
--- NOTE | 2018-06-01 18:50 | RAD ---
Chest 1 view Abdomen 2 views HISTORY: Nausea and vomiting. FINDINGS: Cardiac silhouette and pulmonary vasculature are unremarkable. Mediastinum is midline with aortic calcification, postoperative changes, and a dual lead left subclavian cardiac electronic device. No lobar consolidation or evidence of free subdiaphragmatic gas. Gas and stool are apparent throughout the colon and rectum. Nondilated gas and fluid-filled loops of small bowel are present throughout the abdomen with scattered nonspecific air-fluid levels on upright view in the colon and small bowel. No evidence of free intraperitoneal gas. Calcification ove r the arterial structures. Prominent degenerative changes of lumbar spine. IMPRESSION: Fluid throughout the small bowel and large bowel. Findings are not suggestive of signific ant obstruction. Consider ileus. Atherosclerosis.
[2018-06-01 18:51] LABS: ALT (SGPT) 16 U/L (8-55); AST (SGOT) 20 U/L (5-34); Albumin 3.8 g/dL (3.4-4.8); Alkaline Phosphatase 59 U/L (40-150); Anion Gap 20 mmol/L (10-20); BUN (Urea Nitrogen) 59 mg/dL (8.4-25.7); Bilirubin, Total 0.7 mg/dL (0.2-1.2); Calc. Creatinine Clearance 0 mL/min (70-130); Calcium 8.7 mg/dL (7.8-10.44); Carbon Dioxide 19 mmol/L (23-31); Chloride 100 mmol/L (98-107); Estimated GFR-MDRD 34; Globulin 2.8 g/dL (2.4-3.5); Glucose 161 mg/dL (83-110); Lipase 9 U/L (8-78); Potassium 4.6 mmol/L (3.5-5.1); Protein, Total 6.6 g/dL (5.8-8.1); Sodium 134 mmol/L (136-145)
[2018-06-01 19:06] LABS: Band 31 % (5-11); Eosinophils 6 % (0-10); Lymphocytes 8 % (21-51); MDiff Complete? YES; Monocytes 6 % (0-10); Neutrophil 49 % (42-75); Platelet Morphology Comment Appears Adequate
[2018-06-01 19:13] LABS: CKMB 1.8 ng/mL (0-6.6)
[2018-06-01 21:25] VITALS: BMI 27.8
[2018-06-01] MEDS ORDERED: Acetaminophen 325 MG TAB PO PRN (21:33)
[2018-06-01] MEDS ORDERED: Ondansetron PF 4 MG/2 ML Vial IVP PRN (21:33)
[2018-06-01] MEDS ORDERED: Ondansetron ODT 4 MG TAB SL PRN (21:33)
[2018-06-01] MEDS ORDERED: Sodium Chloride 0.9% 1,000 ML IV SCH (21:45)
[2018-06-01 22:03] LABS: Troponin I 0.117 ng/mL (< 0.028)
[2018-06-01] MEDS ORDERED: Insulin Regular 300 UNITS/3 ML VIAL SC PRN ×2 (22:34)
[2018-06-01] MEDS ORDERED: Dextrose 5% in Water 1,000 ML IV PRN (22:34)
[2018-06-01] MEDS ORDERED: Dextrose 50% Abboject 50 ML SYRINGE SLOW IVP PRN (22:34)
[2018-06-02] MEDS ORDERED: Apixaban 2.5 MG TAB PO SCH (00:15)
[2018-06-02] MEDS ORDERED: Ondansetron ODT 4 MG TAB PO PRN (00:54)
[2018-06-02] MEDS ORDERED: Acetaminophen 325 MG TAB PO PRN (00:54)
[2018-06-02] MEDS ORDERED: Ondansetron PF 4 MG/2 ML Vial IVP PRN (00:54)
[2018-06-02 00:57] LABS: Troponin I 0.132 ng/mL (< 0.028)
--- NOTE | 2018-06-02 01:35 | HP ---
The patient was seen and examined on June 01, 2018. PRIMARY CARE: Ganesh Carrizales DO CHIEF COMPLAINT: Nausea and vomiting of 4 to 5 days duration. HISTORY OF PRESENT ILLNESS: The patient is an 88-year-old male with chronic pain syndrome, hypertension, peripheral vascular disease, and diabetes mellitus type 2, presented to the emergency room with above complaints. The patient has a history of chronic pain and was taking [place] 10/325 every 6 hours. On of this month, the patient was evaluated by Dr. Ganesh Carrizales and was started on long-acting hydrocodone ([place] ER 20 mg twice a day). After one week, this was changed to 40 mg at bedtime. Since then, the patient has nausea almost on the daily basis that is progressively getting worse. Over the last two days, the patient is unable to keep any food down. His last bowel movement was approximately 4 days ago. He was also on antibiotic last month for squamous cell carcinoma on his scalp. He denies any abdominal pain. He denies any chest pain, fever, chills, or abdominal cramping. PAST MEDICAL HISTORY: 1. Coronary artery disease. 2. Peripheral vascular disease with multiple skin lesions, followed by Dr. Naylor. 3. Degenerative joint disease. 4. Chronic pain syndrome. 5. Hypertension. 6. GERD. 7. Diabetes mellitus type 2. 8. Aortic stenosis. 9. Skin cancer with excision in March of this year. 10. History of bladder cancer. 11. Allergic rhinitis. 12. Hyperlipidemia. PAST SURGICAL HISTORY: 1. Coronary stent placement. 2. Bladder surgery in 1995. 3. Rotator cuff repair. 4. Bilateral knee replacement. 5. Pacemaker placement. 6. Back surgery. ALLERGIES: THE PATIENT DENIES ANY DRUG ALLERGIES. CURRENT HOME MEDICATIONS: 1. Eliquis 2.5 mg b.i.d. 2. Aspirin 81 mg daily. 3. Lipitor 40 mg daily. 4. Calcium carbonate 2 tablets b.i.d. 5. Vitamin D3 daily. 6. Avodart 1 capsule daily. 7. Folic acid 0.8 mg daily. 8. Glimepiride 1 mg daily. 9. Glucosamine 2000 mg b.i.d. 10. Hydrocodone extended release 40 mg daily. 11. Vascepa 2 capsules b.i.d. 12. Iron 27 mg daily. 13. Slow-Mag 128 mg daily. 14. Metformin 2000 mg daily. 15. Singulair 10 mg at bedtime. 16. Protonix 40 mg daily. 17. Torsemide 40 mg daily. 18. Flomax 0.4 mg at bedtime. 19. Potassium chloride 20 mEq daily. 20. Coenzyme Q10 daily. 21. [id number] multivitamin daily. SOCIAL HISTORY: The patient currently lives at home with his . He is full code. His is the decision maker. He is a former smoker. No current use of alcohol or drug use. He has home health care for wound care. FAMILY HISTORY: Positive for mother with heart disease and stroke. REVIEW OF SYSTEMS: All other review of systems were reviewed and were found negative. PHYSICAL EXAMINATION: VITAL SIGNS: In the emergency room showed temperature 98.5, respirations of 17, pulse rate of 64, blood pressure of 126/55 with O2 saturation 97% on room air. GENERAL: An 88-year-old male, in no apparent distress. Denies any abdominal discomfort. HEENT: Head atraumatic and normocephalic. Sclerae anicteric. Moist mucous membranes. No oral lesion. NECK: Supple. No JVD appreciated. No carotid bruit. LUNGS: Clear to auscultation bilaterally. No wheezing, rales, or rhonchi. HEART: S1 and S2 present. Irregularly irregular. No heaves or pulsation. ABDOMEN: Soft. Bowel sounds present. No rebound or guarding. No costovertebral angle tenderness. EXTREMITIES: No edema or calf tenderness. Bilateral lower extremity dressing noted. NEUROLOGIC: Grossly nonfocal. Moves all 4 extremities. PSYCHIATRIC: Alert, awake and oriented x3. SKIN: Warm and dry. LYMPH NODE: No palpable lymph nodes in the neck. PERIPHERAL VASCULAR: Radial pulses palpable bilaterally. MUSCULOSKELETAL: No joint swelling or tenderness. LABORATORY FINDINGS: WBC 7.6 with 31% bandemia, hemoglobin 12.2, hematocrit 36.7. Sodium 134, potassium 4.6, chloride 100, bicarb 19, BUN 59, creatinine 1.87. His creatinine in December was 1.3, and in November was 1.07. Troponin was 0.123. Repeat troponin was 0.117. Acute abdominal series by my review showed fluid throughout the small and the large bowel, probably ileus. EKG by my review showed paced rhythm. IMPRESSION: 1. Nausea and vomiting, probably secondary to ileus. 2. Acute kidney injury on chronic kidney disease, stage 3 secondary to dehydration. 3. Chronic pain syndrome, on chronic narcotics. 4. Elevated troponin secondary to demand ischemia/dehydration (type 2 myocardial infarction). 5. Hyponatremia. 6. Metabolic acidosis. 7. Diabetes mellitus type 2. 8. Coronary artery disease. 9. Hypertension. 10. Dyslipidemia. 11. Peripheral vascular disease with skin ulceration, followed by Wound Care. 12. Degenerative joint disease. PLAN: The patient will be monitored as observation. Gastroenterology team will be consulted. We will continue IV fluids. We will keep him on clear liquid diet. We will repeat KUB in a.m. We will hold narcotics for now. Continue anticoagulation. We will hold glimepiride. Insulin sliding scale. Continue PPIs. Plan of care was discussed with the patient and the family in detail, they stated understanding. Job ID: [id number]
[2018-06-02 06:06] LABS: #Eosinphils 0.8 thou/uL (0.0-0.7); #Lymphocytes 0.8 thou/uL (1.20-3.40); #Monocytes 0.7 thou/uL (0.11-0.59); #Neutrophils 4.1 thou/uL (1.40-6.50); %Basophils 0.2 % (0.0-1.0); %Eosinophils 12.1 % (0.0-10.0); %Neutrophils 64.6 % (42.0-75.0); Hemoglobin 10.9 g/dL (14.0-18.0); Mean Corpuscular HGB CONC 32.2 g/dL (32.0-36.0); Mean Corpuscular Hemoglobin 28.4 pg (27.0-31.0); Mean Corpuscular Volume 88.2 fL (78.0-98.0); Mean Platelet Volume 8.3 fL (7.4-10.4); Platelet Count 150 thou/uL (130-400); RBC Distribution Width 16.9 % (11.5-14.5); Red Blood Cell (RBC) Count 3.85 mill/uL (4.70-6.10); White Blood Cell (WBC) Count 6.3 thou/uL (4.8-10.8)
[2018-06-02 06:25] LABS: ALT (SGPT) 13 U/L (8-55); AST (SGOT) 15 U/L (5-34); Albumin 3.5 g/dL (3.4-4.8); Alkaline Phosphatase 53 U/L (40-150); Anion Gap 14 mmol/L (10-20); BUN (Urea Nitrogen) 58 mg/dL (8.4-25.7); Bilirubin, Total 0.6 mg/dL (0.2-1.2); Calc. Creatinine Clearance 36 mL/min (70-130); Calcium 8.1 mg/dL (7.8-10.44); Carbon Dioxide 21 mmol/L (23-31); Chloride 104 mmol/L (98-107); Estimated GFR-MDRD 42; Globulin 2.5 g/dL (2.4-3.5); Glucose 134 mg/dL (83-110); Magnesium 1.1 mg/dL (1.6-2.6); Phosphorus 3.4 mg/dL (2.3-4.7); Potassium 3.8 mmol/L (3.5-5.1); Sodium 135 mmol/L (136-145)
[2018-06-02] MEDS ORDERED: Magnesium Sulfate 4 GM in Sodium Chloride 0.9% 250 ML 250 ML IVPB SCH (06:30)
[2018-06-02] MEDS: Sodium Chloride 0.9% 1,000 ML IV SCH ×3 (06:43→20:51)
[2018-06-02] MEDS: Aspirin 81 mg Enteric Coated Tablet PO SCH (09:59)
[2018-06-02] MEDS: Bisacodyl 10 MG SUPP PR SCH (09:59)
[2018-06-02] MEDS: Apixaban 2.5 MG TAB PO SCH ×2 (09:59→20:50)
--- NOTE | 2018-06-02 10:45 | PDOC.PN ---
- Subjective Encounter Start Date: 06/02/18 Encounter Start Time: 10:43 Mr. Paniagua was seen today in follow-up of nausea and vomiting, and abdominal distention. He says he had a large bowel movement yesterday. - Objective Resuscitation Status - Order Detail: 06/02/18 00:54 Resuscitation Status Routine Resuscitation Status: FULL: Full Resuscitation MAR Reviewed: Yes Vital Signs & Weight: Vital Signs (12 hours) Temp Pulse Resp BP BP Pulse Ox 06/02/18 07:38 97.4 F L 60 16 111/56 L 97 06/02/18 05:09 98.1 F 93 16 117/56 L 96 06/02/18 00:54 97 06/02/18 00:42 97.8 F 66 14 117/56 L 97 Weight Weight 177 lb 11.2 oz I&O: 06/01/18 06/02/18 06/03/18 06:59 06:59 06:59 Intake Total 1024 Output Total 450 Balance 574 Result Diagrams: 06/02/18 04:46 06/02/18 04:46 Phys Exam - Physical Examination HEENT: PERRLA Respiratory: no wheezing, no rales, no rhonchi, clear to auscultation bilateral Cardiovascular: RRR, no significant murmur, no rub Gastrointestinal: positive bowel sounds + mildly distented Dx/Plan (1) Ileus Code(s): K56.7 - ILEUS, UNSPECIFIED Status: Acute (2) Acute coronary syndrome Code(s): I24.9 - ACUTE ISCHEMIC HEART DISEASE, UNSPECIFIED Status: Acute (3) Diabetes mellitus type 2 in nonobese Code(s): E11.9 - TYPE 2 DIABETES MELLITUS WITHOUT COMPLICATIONS Status: Acute (4) Hypertension Code(s): I10 - ESSENTIAL (PRIMARY) HYPERTENSION Status: Acute (5) Coronary artery disease Code(s): I25.10 - ATHSCL HEART DISEASE OF [place] CORONARY ARTERY W/O ANG PCTRS Status: Acute - Plan * Ileus- ? etiology- no previous surgeries, he had a colonoscopy about 3 years ago which was reported as normal- await GI input * Elevated troponin's and nausea and vomiting- this could be an acute coronary syndrome- will consult Cardiology. * DM- blood glucose is stable * HTN- blood pressure is stable * Continue clear liquid diet for now
[2018-06-02 12:39] LABS: Troponin I 0.122 ng/mL (< 0.028)
[2018-06-02] MEDS ORDERED: Polyethylene Glycol 3350 17 GM Packet PO SCH (18:00)
[2018-06-02] MEDS ORDERED: Fleet Enema 133 ML BOT PR SCH (18:00)
[2018-06-02 19:26] LABS: Hemoglobin 10.8 g/dL (14.0-18.0); Platelet Count 148 thou/uL (130-400)
--- NOTE | 2018-06-02 20:33 | CON ---
DATE OF CONSULTATION: PRIMARY CARE DOCTOR: Dr. Ganesh Carrizales. PRIMARY PANEL LAMINATOR: Dr. Chel Pierre. REFERRING DOCTOR: Dr. Tolbert. REASON FOR CONSULT: Nausea and vomiting, possible due to secondary to coronary artery syndrome. HISTORY OF PRESENT ILLNESS: Mr. Paniagua is a very present 88-year-old male with a significant history of coronary artery disease with CABG x2 in November 2017, pacemaker placement, paroxysmal atrial fibrillation, but lately the patient has chronic atrial fibrillation, severe peripheral vascular disease, GERD, aortic valve replacement in November 2017. Mr. Paniagua is doing well after the surgery; however, he started having more pain to bilateral lower extremities due to severe PVD. His pain was very well controlled with Hysingla 20 mg twice a day. Since he is elderly patient, the patient's primary care doctor changed the medicine from 20 mg twice a day to 40 mg once a day on May 30. Since then he started having nausea once a day especially after he ate a meal. He started nausea and vomiting almost every 1 to 2 hours all day yesterday, on June 01, 2018. He could not even hold his food or fluid. Due to the patient was transferred to [facility] for further evaluation and treatment. His troponin has been indeterminate from 0.123, the peak was 0.132, and this morning, troponin went down to 0.122. Since the patient was admitted in the hospital, he has not had any vomiting or nausea. He had a good BM yesterday and also this morning. He denied any blood in his stool or urine. He is tolerated with clear liquid diet at this moment. He denies any chest pain, heaviness, tightness, palpitation, fluttering, or any other cardiac complaints. 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 He has not had any nausea or vomiting until May 30, although the patient was on antibiotic twice a day. The patient had a CABG x2, RSV to LAD and RSV to PDA with valve replacement, also bioprosthetic aortic valve replacement in November 2017. He did not have any left atrium appendage ligation or Maze during the procedure. The patient had an echocardiogram done in May 2017, EF 50% to 50%, moderate left ventricular hypertrophy, LAE, mild mitral valve regurgitation, severe , mild aortic valve insufficiency, mild tricuspid regurgitation, right RVSP with large cyst in the liver. The patient underwent AFRO in March 2018, showed severe PVD in bilateral lower extremities, which is not amendable to any type of revascularization. PAST MEDICAL HISTORY: 1. Coronary artery disease. 2. Severe peripheral vascular disease, which is not amenable to any type of revascularization. 3. Degenerative joint disease. 4. Chronic pain syndrome. 5. Hypertension. 6. GERD. 7. Diabetes, type 2. 8. Severe aortic valve stenosis with valve replacement in November 2017. 9. 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 10. History of bladder cancer. 11. Allergic rhinitis. 12. Hyperlipidemia. PAST SURGICAL HISTORY: Coronary stent placement and CABG x2 in November 2017, bilateral shoulder rotator cuff repair, aortic valve replacement, dual-chamber pacemaker placement, bladder surgery in 1995, bilateral knee replacement, back surgery. ALLERGIES: NO KNOWN DRUG ALLERGIES. FAMILY HISTORY: The patient's mother has a history of heart disease and stroke. SOCIAL HISTORY: He is . He is living with his . They have children who are living well. He is a former smoker. He denies any EtOH or illicit drug abuse. 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 He has treatment every other week. CURRENT MEDICATIONS: 1. Eliquis 2.5 mg twice a day. 2. Aspirin 81 mg once a day. 3. Lipitor 40 mg once a day. 4. Calcium carbonate 2 tablets twice a day. 5. Vitamin D3 once a day. 6. Avodart one tablet once a day. 7. Folic acid once a day. 8. Glimepiride 1 mg once a day. 9. Glucosamine 2000 mg twice a day. 10. Hysingla 40 mg once a day. 11. Vascepa 2 capsules twice a day. 12. Iron supplement daily. 13. Magnesium supplement once a day. 14. Metformin 2000 mg once a day. 15. Singulair 10 mg once a day. 16. Protonix 40 mg once a day. 17. Torsemide 40 mg once a day. 18. Flomax 0.4 mg once a day. 19. Potassium chloride 20 mEq once a day. 20. Coenzyme once a day. 21. Lpbi-bei-dtbpmlg multivitamin daily. REVIEW OF SYSTEMS: Twelve-point review of systems was negative unless otherwise mentioned in the HPI. The patient's reports that he has constipation for 2 or 3 days prior to this admission, but he has a good bowel movement yesterday and today. PHYSICAL EXAMINATION: VITAL SIGNS: Blood pressure 111/56, temperature 97.4, pulse is 60 and V-pacing and some time A-pacing too, respiratory rate 16, O2 saturation 97% on room air. GENERAL: The patient is alert and oriented x4, not in acute distress. The patient had a dressing on the left scalp secondary to skin excision in March 2018. No arrhythmia or drainage from the site. HEENT: Eyes, extraocular muscle movement intact. He wears glasses. ENT and mouth, oral mucosa moist without lesion. NECK: Supple. Normal range of motion. No JVD. RESPIRATORY: Clear to auscultate bilaterally but diminished at the bases. No wheezing, rales, or rhonchi noted. CARDIOVASCULAR: Regular rate and rhythm. There is no S3 or S4. No significant murmur, hives, or thrills noted. 2+ pulses in bilateral upper extremities. It is really hard to take the pulses in the bilateral lower extremities due to dressing. He still feels sharp pain when he starts walking. ABDOMEN: Soft, nontender. No mass to palpate. Bowel sounds are present. SKIN: Warm and dry. Several bruises in the bilateral upper extremities, possibly from attempting the lab and IV. He has a dressing to bilateral lower extremities due to the history of chronic ulcer. MUSCULOSKELETAL: The patient is able to move all extremities without difficulty. NEUROLOGIC: The patient is alert and oriented x4, nonfocal. PSYCHIATRIC: The patient's mood is appropriate. LABORATORY DATA: WBC 6.3, hemoglobin 10.9, hematocrit 33.9, and platelets 150. Sodium 135, potassium 3.8, BUN 58, creatinine is 1.57, glucose 134, calcium 8.1. Magnesium 1.1. AST 15, ALT 13, CK-MB is 1.8. Troponin is 0.123, 0.117, 0.132, 0.122. TSH is 0.8836. DIAGNOSTIC DATA: The patient's abdomen KUB showed fluid throughout the small bowel and the large bowel which finding is not suggesting significant obstruction. Consider ileus. 12-lead EKG shows V-pacing and A-sensing with a heart rate of 64. ASSESSMENT/PLAN: 1. Indeterminate troponin level, ischemia from severe nausea and vomiting prior to this admission. The patient denied any chest pain or discomfort or any other cardiac complaints. At this moment, we would like to continue to monitor. The patient's troponin is trending down at this moment. No EKG change. 2. Nausea and vomiting. The patient's condition is stable since the patient is admitted at this hospital. KUB showed no obstruction, but possible ileus. We would like to continue to monitor. At this moment, the patient tolerated all his medication and clear liquid diet. 3. Coronary artery disease with coronary artery bypass graft x2 in November 2017. The patient's condition is stable at this moment. He is on Lipitor 40 mg once a day, aspirin 81 mg once a day; however, he is not on any beta ramin or ZACH inhibitor or ARB at this moment due to hypotensive without any blood pressure medication. 4. Status post aortic valve replacement in November 2017. He has not had any echocardiogram since the procedure. We would like to go ahead and order for valve evaluation, atrial fibrillation, and elevated troponin. 5. Severe peripheral vascular disease, status post abdominal femoral runoff. The patient was told to continue medical management only at this moment. We would like to continue to monitor. 6. Hypomagnesemia. The patient's magnesium level was 1.1. He already received magnesium replacement this morning. Thank you very much for allowing the Cardiology Service to participate in the care of this patient. We will follow along the patient's care team and make further recommendations as appropriate. Job ID: [id number]
[2018-06-02] MEDS ORDERED: Tamsulosin HCl 0.4 MG CAP PO SCH (21:00)
--- NOTE | 2018-06-03 00:26 | CON ---
DATE OF CONSULTATION: 06/02/2018 REASON FOR CONSULTATION: "Ileus." HISTORY OF PRESENT ILLNESS: Mr. Paniagua presented to the emergency room last night with complaints of 4-5 days of nausea and vomiting per the admission H and P with the ER notes that he stated it started that day. His states he has been nauseated for some time and he has been on Zofran. He had been taking hydrocodone for chronic leg pain secondary to severe peripheral vascular disease and ulcerations, but it really was not helping the pain much and actually he was started on Hysingla 20 mg b.i.d. that controlled the pain. He was starting to have nausea with diet and he was prescribed Zofran. The night prior to admission, the Zofran helped, but after that he started vomiting multiple times and the next morning, he could not hold anything down, so he came to the emergency room. He had not had a bowel movement in 3-4 days, typically he would have loose stools; they have been more pasty now. He is on no bowel regimen with his chronic narcotics. He reports he has had a colonoscopy that was normal about 3 years ago. On reviewing that report from 03/10/2014 and reviewing the colon report, he had some very mild active colitis pattern of injury at that time, it was felt to be prep-induced. He also had a hyperplastic polyp. I will also review his endoscopy report in the chart when I can access those records. In any event, the patient has had no vomiting here. He was given Zofran and normal saline in the ER. Had some plain films that showed what I feel is impaction in the rectum, otherwise there is nonspecific air and fluid in the colon and nondilated gas and fluid-filled loops of small bowel in the abdomen. He had a white count of 7.6, hemoglobin of 12.2, platelet count of 178. His sodium was 134. His potassium was 4.6, bicarb was 19, chloride 100, anion gap 15, BUN and creatinine were 59 and 1.87. Liver function tests were normal. Lipase was normal. Presently, he has had no vomiting since admission. He is sitting up in a chair. Denies any rectal bleeding or diarrhea. The only other new medication is that he is on doxycycline for an infection on his scalp. PAST MEDICAL HISTORY: Coronary artery disease, peripheral vascular disease, multiple skin lesions. He is [facility]. Degenerative joint disease, chronic pain syndrome in the legs secondary to poor perfusion, hypertension, reflux, type 2 diabetes, aortic stenosis, status post repair; skin cancer excision in March, bladder cancer in the past, allergic rhinitis, and hyperlipidemia. PAST SURGICAL HISTORY: Coronary stent placement, bladder surgery in 1995, rotator cuff repair, bilateral knee replacements, pacemaker placement, back surgery, aortic valve replacement, and colonoscopy 4 years ago. ALLERGIES: NONE KNOWN. MEDICATIONS: 1. Eliquis. 2. Aspirin. 3. Lipitor. 4. Calcium. 5. Vitamin D3. 6. Avodart. 7. Folic acid. 8. Glimepiride. 9. Glucosamine. 10. Hydrocodone extended release 40 mg daily. 11. Vascepa. 12. Iron. 13. Slow-Mag. 14. Metformin. 15. Singulair. 16. Protonix. 17. Furosemide. 18. Flomax. 19. Potassium. 20. . 21. Multivitamin. SOCIAL HISTORY: Lives at home with his . FAMILY HISTORY: Vascular disease. REVIEW OF SYSTEMS: The patient denies any abdominal pain or weight loss with eating, sitophobia, hematemesis or melena. Medications here; 1. Tylenol. 2. Eliquis. 3. Ecotrin. Dulcolax, which he has refused. 1. Glucagon. 2. Humulin. 3. Insulin sliding scale. 4. Zofran. 5. Protonix. 6. Normal saline at 100 an hour. 7. Flomax. PHYSICAL EXAMINATION: GENERAL: He is resting comfortably in bed. He is in no distress. He has bandages on his legs and bandage on his head. VITAL SIGNS: He has been afebrile since admission. Pulse is 61, blood pressure 117/94. LUNGS: Clear. HEART: Regular rate and rhythm without clicks, rubs, or murmurs. ABDOMEN: Protuberant, but soft and nontender, nondistended. RECTAL: Examination reveals a large, soft amount of stool in the vault. No blood. LABORATORY DATA: Previous labs indicate celiac testing negative. Abdominal imaging from admission, he has a pretty large amount of stool in the rectum, otherwise stool scattered throughout the right colon. ASSESSMENT: Nausea, this seems to have exacerbated since starting the long-acting narcotic. It is unclear if this is just a reaction to the narcotic or related to obstipation. He does not have severe abdominal distention. He has quite a bit of constipation on the x-ray and it looks like he probably has a pretty fairly sizable soft impaction in his rectum, but no hard impaction. RECOMMENDATIONS: 1. Hold on narcotics. 2. Hydrate. 3. Enemas. 4. MiraLAX from above. 5. The patient has recurrent nausea and vomiting, consider endoscopy, but he seems very comfortable, not throwing up now. It may be that he has to come off the narcotic or going to some other pain medicine regimen. The Zofran is very effective for nausea, but it is very constipating as well and also can lead to some severe constipation and impaction. In an ideal situation, he needs to be on a bowel regimen with his narcotic, especially when he take the high doses that he is taking; something in the lines of Heather would be reasonable and that will be started in the outpatient setting after he has been cleaned out by whoever is managing his pain regimen. Job ID: [id number]
[2018-06-03] MEDS: Sodium Chloride 0.9% 1,000 ML IV SCH (06:02)
[2018-06-03 06:53] LABS: #Eosinphils 0.6 thou/uL (0.0-0.7); #Lymphocytes 1.3 thou/uL (1.20-3.40); #Monocytes 0.6 thou/uL (0.11-0.59); #Neutrophils 3.6 thou/uL (1.40-6.50); %Basophils 0.4 % (0.0-1.0); %Eosinophils 10.6 % (0.0-10.0); %Lymphocytes 20.6 % (21.0-51.0); %Monocytes 9.6 % (0.0-10.0); %Neutrophils 58.8 % (42.0-75.0); Hemoglobin 10.8 g/dL (14.0-18.0); Mean Corpuscular HGB CONC 32.5 g/dL (32.0-36.0); Mean Corpuscular Hemoglobin 28.8 pg (27.0-31.0); Mean Corpuscular Volume 88.8 fL (78.0-98.0); Mean Platelet Volume 8.2 fL (7.4-10.4); Platelet Count 147 thou/uL (130-400); RBC Distribution Width 16.7 % (11.5-14.5); Red Blood Cell (RBC) Count 3.76 mill/uL (4.70-6.10); White Blood Cell (WBC) Count 6.1 thou/uL (4.8-10.8)
[2018-06-03 07:11] LABS: ALT (SGPT) 39 U/L (8-55); AST (SGOT) 32 U/L (5-34); Albumin 3.5 g/dL (3.4-4.8); Alkaline Phosphatase 63 U/L (40-150); Anion Gap 13 mmol/L (10-20); BUN (Urea Nitrogen) 32 mg/dL (8.4-25.7); Bilirubin, Total 0.5 mg/dL (0.2-1.2); Calc. Creatinine Clearance 50 mL/min (70-130); Carbon Dioxide 19 mmol/L (23-31); Chloride 109 mmol/L (98-107); Estimated GFR-MDRD 60; Globulin 2.5 g/dL (2.4-3.5); Glucose 135 mg/dL (83-110); Sodium 137 mmol/L (136-145)
[2018-06-03 07:16] LABS: Troponin I 0.082 ng/mL (< 0.028)
[2018-06-03] MEDS ORDERED: Polyethylene Glycol 3350 17 GM Packet PO SCH (09:00)
[2018-06-03] MEDS ORDERED: Torsemide 20 MG TAB PO SCH (09:00)
[2018-06-03] MEDS: Apixaban 2.5 MG TAB PO SCH (09:20)
[2018-06-03] MEDS: Aspirin 81 mg Enteric Coated Tablet PO SCH (09:20)
[2018-06-03] MEDS: Bisacodyl 10 MG SUPP PR SCH (09:21)
--- NOTE | 2018-06-03 09:24 | PDOC.PN ---
- Subjective Encounter Start Date: 06/03/18 Encounter Start Time: 11:00 Subjective: Patient without further nausea or vomiting. He has had a couple large soft -: bowel movements. No other complaints. Eager to go home. - Objective Resuscitation Status - Order Detail: 06/02/18 00:54 Resuscitation Status Routine Resuscitation Status: FULL: Full Resuscitation MAR Reviewed: Yes Vital Signs & Weight: Vital Signs (12 hours) Temp Pulse Resp BP BP Pulse Ox 06/03/18 07:40 96 06/03/18 07:16 97.7 F 64 17 131/60 96 06/03/18 04:00 97.3 F L 63 16 125/59 L 98 Weight Weight 177 lb 11.2 oz I&O: 06/02/18 06/03/18 06/04/18 06:59 06:59 06:59 Intake Total 1024 2230 Output Total 450 1900 Balance 574 330 Result Diagrams: 06/03/18 06:29 06/03/18 06:29 Additional Labs: Accuchecks 06/03/18 06/02/18 06/02/18 05:52 16:40 11:18 POC Glucose 137 H 134 H 149 H Phys Exam - Physical Examination Constitutional: NAD HEENT: moist MMs Respiratory: no wheezing, no rales, no rhonchi, clear to auscultation bilateral Cardiovascular: RRR, no significant murmur Gastrointestinal: soft, non-tender, no distention, positive bowel sounds Neurological: non-focal, moves all 4 limbs Psychiatric: normal affect, A&O x 3 Dx/Plan (1) Nausea and vomiting Code(s): R11.2 - NAUSEA WITH VOMITING, UNSPECIFIED Status: Acute Comment: secondary to narcotics with fecal impaction and possible ileus, passing good stools now with laxatives and enema, will likely need daily bowel regimen if to continue alf narcotic pain medications (2) Elevated troponin Code(s): R74.8 - ABNORMAL LEVELS OF OTHER SERUM ENZYMES Status: Acute Comment: indeterminate, likely stress ischemia due to nausea and vomiting, resolving, appreciate Dr. Maguire assistance (3) Coronary artery disease Code(s): I25.10 - ATHSCL HEART DISEASE OF [place] CORONARY ARTERY W/O ANG PCTRS Status: Chronic (4) Diabetes mellitus type 2 in nonobese Code(s): E11.9 - TYPE 2 DIABETES MELLITUS WITHOUT COMPLICATIONS Status: Chronic (5) Hypertension Code(s): I10 - ESSENTIAL (PRIMARY) HYPERTENSION Status: Chronic (6) Peripheral vascular disease Code(s): I73.9 - PERIPHERAL VASCULAR DISEASE, UNSPECIFIED Status: Chronic Comment: with chronic pain, holding narcotics for now - Plan cont current plan of care, out of bed/ambulate Ok to d/c home on anti-opiate medication per Dr. Haas. * . - Discharge Day Encounter end time: 11:30
--- NOTE | 2018-06-03 10:09 | CON ---
DATE OF CONSULTATION: 06/02/2018 ADDENDUM: Please refer to the notes already dictated by nurse practitioner, Lu Vega. INDICATION FOR CONSULTATION: An 88-year-old patient with a history of coronary artery disease, aortic valve stenosis, who, back in December 18, 2017, underwent aortic valve replacement with a #23 Magna bioprosthetic valve and also with bypass surgery x2 with saphenous vein graft to the left anterior descending artery as well as saphenous vein graft to the posterior descending artery and the right coronary artery. He was doing relatively well from a cardiac standpoint. He does have atrial fibrillation, undergone pacemaker insertion many years ago and several years ago actually had change out of the device due to the pacemaker generator end of life. He has been doing quite well otherwise, but does have significant peripheral vascular disease as well as type 2 diabetes and hypertension. He presented to the emergency room with nausea and vomiting after having 4 to 5 days of duration. He has actually already been seen by the picking belt operator who believes the patient has distal bowel obstruction and is now planned for the patient to have enemas as well as I believe some laxatives to see whether or not the obstruction can be cleared and this is felt to be the etiology of his nausea and vomiting. He denied any chest pain or significant shortness of breath. He does have some shortness of breath, but overall has been doing quite well. His cardiac enzymes are indeterminate with a troponin I of 0.12, decreased down to 0.117, and then back up to 0.12, and back down to 0.122, but he denies any pain at this time, otherwise, from cardiac standpoint appears to be relatively stable. EKG is indeterminate since he has pacing 100% essentially from the ventricle and when he does have a [place] or intrinsic beat, I do not see any indication that there are any acute changes otherwise. At this time, his abdominal pain has improved. We will continue to follow him very carefully. He also has been found to have some chronic kidney disease, which is not a new finding. PAST MEDICAL HISTORY: Please refer to the notes dictated by the nurse practitioner. SOCIAL HISTORY: Please refer to the notes dictated by the nurse practitioner. FAMILY HISTORY: Please refer to the notes dictated by the nurse practitioner. REVIEW OF SYSTEMS: Please refer to the notes dictated by the nurse practitioner. MEDICATIONS: Please refer to the notes dictated by the nurse practitioner. ALLERGIES: PLEASE REFER TO THE NOTES DICTATED BY THE NURSE PRACTITIONER. WE HAVE SEEN AND EVALUATED THIS PATIENT AND DISCUSSED THE ASSESSMENT AND PLAN. PHYSICAL EXAMINATION: GENERAL: Reveals an elderly gentleman, who is in no acute distress. He is alert. He is oriented. VITAL SIGNS: Blood pressure is 117/84. He is afebrile. Heart rate is in the 60s and shows a paced rhythm for the majority of the time. Respiratory rate 16, O2 saturation is 98%. HEENT: Exam shows a surgical dressing on the left-sided scalp area on the top not the occipital but the parietal area after he has undergone some type of skin cancer removal. This appears to be doing quite well. NECK: Shows no JVD. I did not hear any significant bruits. CHEST: Clear to auscultation. There were no rales, rhonchi, or wheezing noted. CARDIOVASCULAR: At this time reveals a regular rhythm with occasional ectopy, but as noted he is pacing and I did not hear any gross murmurs across the aortic valve, appears to be sensing normally. ABDOMINAL: At this time appears to be soft. Positive bowel sounds are present. EXTREMITIES: Show no clubbing or cyanosis. I could not palpate lower extremity pulses from the popliteal all the way down to the feet area. He does have some discoloration and also the legs have been wrapped in surgical dressings. He has been followed by the wound care center. He apparently has had some open wounds. He did have a right lower leg ulceration which is healed and according to the family, the left lower extremity is improving. NEUROLOGIC: He remains grossly intact. LABORATORY DATA: Noted for the BUN of 58, creatinine 1.57, blood sugar was 134, potassium 3.8. His WBC was 6.3 with 31 bands, and hemoglobin was 10.9. IMPRESSION: 1. Nausea and vomiting, most likely associated with an obstruction most likely partial or an ileus. He will undergo I believe lower GI and enema as well as laxatives and may eventually need to be disimpacted, this will be dealt with by the primary care service and the picking belt operator. 2. History of coronary artery disease. Despite having a slight increase in cardiac enzymes, this does appear to be stable. 3. Status post aortic valve replacement. This also appears to be stable. He has had an echocardiogram need to review that. Otherwise, he seems to be doing quite well from a cardiac standpoint. Most likely his elevated cardiac enzymes certainly could be due to demand ischemia. 4. Chronic kidney disease, this also appears to be relatively stable. He has had some problems since his bypass surgery and aortic valve replacement, but this has actually remained stable. 5. History of pacemaker insertion. This also appears to be stable. His last check was in the office not too long ago and the device was functioning normally. 6. Hypertension, this is under good control at this time. We will continue same medications. 7. Diabetes will be dealt with by the primary care service. 8. Peripheral vascular disease. He has been evaluated in the past by Dr. Monahan. It is felt that he has medical treatment only. no way to intervene or to perform any further peripheral vascular interventions. Further care of the patient will be dictated by Dr. Pierre when he visits with the patient tomorrow. Job ID: [id number]
--- NOTE | 2018-06-03 10:19 | PRG ---
DATE OF SERVICE: 06/03/2018 SUBJECTIVE: Mr. Paniagua is doing better today, not having chest pain or pressure. Constipation seems to be improved. OBJECTIVE: VITAL SIGNS: His blood pressure 130/60, pulse 64, regular. LUNGS: Clear. CARDIAC: Normal S1, normal S2. ABDOMEN: Soft and nontender. EXTREMITIES: Mild edema. ASSESSMENT: 1. Previous aortic valve replacement and bypass surgery. 2. Indeterminate troponins. 3. Atrial fibrillation, chronic. 4. Previous pacemaker insertion. 5. Severe peripheral vascular disease, not amenable to any further therapy. PLAN: Stable from a cardiac standpoint. Okay to be released home. He is on aspirin and reduce dosed Eliquis. Okay with me to be released home at this time. His creatinine has been variable. His creatinine did improve with hydration, but the initial GFR was 34, now it is up to 60 with hydration. That is why he is on reduced Eliquis due to age and renal insufficiency. Job ID: [id number]
--- NOTE | 2018-06-03 10:52 | PQF ---
CLINICAL DOCUMENTATION IMPROVEMENT CLARIFICATION FORM: ICD-10 Updated PLEASE DO AN ADDENDUM TO THE PROGRESS NOTE WITH ANY DOCUMENTATION UPDATES OR ADDITIONS AND CARRY THROUGH TO DC SUMMARY. THANK YOU. DATE: 06/03/18 ATTN: DR. JOYCE Please exercise your independent, professional judgment in responding to the clarification form. Clinical indicators are provided on the bottom of this form for your review Please check appropriate box(s): AMI TYPE: [ ] NSTEMI (AZ type I) [ ] NSTEMI due to Demand Ischemia (AMI Type II) [ X ] Demand Ischemia without [place] [ ] Other diagnosis [ ] Unable to determine In addition, please specify: Present on Admission (POA): [ X ] Yes [ ] No [ ] Unable to determine CLINICAL INDICATORS - SIGNS / SYMPTOMS / LABS H&P: ELEVATED TROPONIN SECONDARY TO DEMAND ISCHEMIA (TYPE 2 MYOCARDIAL INFARCTION) CARDIOLOGY NOTE: "INDETERMINATE TROPONIN LEVEL, ISCHEMIA FROM SEVERE NAUSEA AND VOMITING PRIOR TO THIS ADMISSION." TROPONIN 0.117 / 0.132 / 0.122 RISKS: H/O AFIB HYPERTENSION CAD H/O CABG TREATMENT: SERIAL LABS CARDIOLOGY CONSULT ECOTRIN (06/02-PRESENT) TELEMETRY MONITORING SAP Horse Identifier [employer] Winform Viewer(This form is maintained as a part of the permanent medical record) 2014 [employer]. All Rights Reserved HEMANT [email or web address] Office: [phone] [facility] HOSPITALTrinidad
[2018-06-03 13:19] VITALS: BP 163/72; TEMP 98.1
[2018-06-03] MEDS ORDERED: METFORMIN HCL PO SCH (21:00)
--- NOTE | 2018-06-04 02:25 | DIS ---
DATE OF ADMISSION: 06/01/2018 DATE OF DISCHARGE: 06/03/2018 PRIMARY CARE PHYSICIAN: Ganesh Carrizales DO REASON FOR ADMISSION: Nausea and vomiting. DIAGNOSES AT DISCHARGE: 1. Nausea and vomiting secondary to fecal impaction from narcotic use, resolved. 2. Fecal impaction, resolved. 3. Demand ischemia without myocardial infarction. 4. Coronary artery disease. 5. Diabetes mellitus type 2. 6. Hypertension. 7. Peripheral vascular disease with chronic lower extremity pain. PROCEDURES: 1. Acute abdominal series showing fluid throughout the small bowel and large bowel, findings not suggested significant obstructions to consider ileus. 2. Echocardiogram showing ejection fraction of 50% to 55%, with a restrictive filling pattern and a normally functioning bioprosthetic valve in the aortic position. CONSULTATIONS: 1. Cardiology, Dr. Maguire. 2. Gastroenterology, Dr. Haas. SUMMARY OF HOSPITAL COURSE: This is an 88-year-old male with chronic lower extremity pain and peripheral vascular disease. He has been on long-acting hydrocodone, Hysingla extended release 40 mg once a day, as this causes some nausea, which he takes Zofran for, but then he started having significant nausea and vomiting for the last 2 days and no bowel movement for 4 days. The patient was seen in the hospital. His abdominal series did not show any obstruction. Gastroenterology was consulted. They recommended enemas and laxatives and the patient started having normal large soft bowel movement with resolution of all of his nausea, vomiting, and abdominal pain. Dr. Haas did recommend starting him on an opioid antagonist for the gut, Movantik daily and has cleared him to be discharged home. The patient did have indeterminate troponins. During hospitalization, these did trend down, determined to be demand ischemia from his volume depletion from his nausea and vomiting. He is now asymptomatic, ready to go home. DISCHARGE MANAGEMENT: Discharged home. FOLLOWUP: Follow up with Dr. Carrizales in the next 7 days. ACTIVITY: As tolerated. DIET: Diabetic, low-sodium diet. MEDICATIONS: 1. Movantik 12.5 mg daily, 30 tablets dispensed. 2. Zofran as needed, 15 tablets dispensed. 3. Eliquis 2.5 mg twice a day. 4. Aspirin 81 mg daily. 5. Lipitor 40 mg daily. 6. Calcium carbonate 2 tablets twice a day. 7. Vitamin D3 5000 units daily. 8. Avodart 0.5 mg each morning. 9. Folic acid 0.8 mg daily. 10. Glimepiride 1 mg each morning. 11. Glucosamine sulfate 2000 mg twice a day. 12. Hysingla extended release 40 mg daily. 13. Vascepa 2 capsules twice a day. 14. Iron 27 mg daily. 15. Magnesium chloride 64 mg tablets 2 tablets each morning. 16. Metformin 1000 mg twice a day. 17. Singulair 10 mg at night. 18. Centrum Silver 1 tablet daily. 19. Protonix 40 mg daily. 20. Potassium chloride 20 mEq daily. 21. Tamsulosin 0.4 mg at night. 22. Torsemide 20 mg daily. 23. Turmeric 500 mg twice a day. 24. Coenzyme Q10 100 mg daily. 25. PreserVision AREDS 2 tablets twice a day. 26. tablet, 1 tablet daily. 27. B complex 1 tablet daily. Job ID: [id number]
[2018-06-04] MEDS ORDERED: Glimepiride 1 MG TAB PO SCH (09:00)
[2018-06-04] MEDS ORDERED: Dutasteride 0.5 MG CAP PO SCH (09:00)
[2018-06-04] MEDS ORDERED: Torsemide 20 MG TAB PO SCH (09:00)
== END 2018-06-03 13:22 | disposition home or self-care (01) | DRG 389 ==
LOC: ERS 17:25 → OBSVTOIN 19:34 → 2SW 19:34 → 2NO 06-02 18:17
PROVIDERS: ADMIT Internal Medicine; ATTEND Internal Medicine
DX: K56.41 Fecal impaction (principal); N17.9 Acute kidney failure, unspecified; I24.8 Other forms of acute ischemic heart disease; E87.2 Acidosis; E87.1 Hypo-osmolality and hyponatremia; T40.605A Adverse effect of unspecified narcotics, initial encounter; R11.2 Nausea with vomiting, unspecified; G89.4 Chronic pain syndrome; I12.9 Hypertensive chronic kidney disease with stage 1 through stage 4 chronic kidney disease, or unspecified chronic kidney disease; E11.51 Type 2 diabetes mellitus with diabetic peripheral angiopathy without gangrene; I25.10 Atherosclerotic heart disease of native coronary artery without angina pectoris; M19.90 Unspecified osteoarthritis, unspecified site; K21.9 Gastro-esophageal reflux disease without esophagitis; I35.0 Nonrheumatic aortic (valve) stenosis; E78.5 Hyperlipidemia, unspecified; J30.9 Allergic rhinitis, unspecified; N18.3 Chronic kidney disease, stage 3 (moderate); E86.0 Dehydration; I48.2 Chronic atrial fibrillation; E11.22 Type 2 diabetes mellitus with diabetic chronic kidney disease; E83.42 Hypomagnesemia; Z95.5 Presence of coronary angioplasty implant and graft; Z85.828 Personal history of other malignant neoplasm of skin; Z85.51 Personal history of malignant neoplasm of bladder; Z95.0 Presence of cardiac pacemaker; Z79.01 Long term (current) use of anticoagulants; Z79.82 Long term (current) use of aspirin; Z79.84 Long term (current) use of oral hypoglycemic drugs; Z79.899 Other long term (current) drug therapy
CPT/HCPCS: 36415; 36416; 74022; 80053; 82553; 83690; 83735; 84100; 84443; 84484; 85025; 93005; 93306; J2405; J3475; J7050

== ENCOUNTER 2018-06-12 08:53 | Outpatient (CLI) | payer MEDICARE ==
--- NOTE | 2018-06-12 10:32 | RAD ---
Single contrast barium esophagram INDICATION: Vomiting COMPARISON: Acute abdominal series dated June 01, 2018 TECHNIQUE: Thick barium was provided to the patient orally. After 3 successive barium swallows, the p atient had episode of tracheal aspiration with barium identified within the trachea. The aspiration event did elicit a cough from the patient. The examination was terminated at this point in time. Fluoroscopic time: 0.5 minutes. Total exposure 51.05 mCi FINDINGS: Knot Saw Operator images demonstrates postsurgical changes of an aortic valvular replacement with midline sternot rajeev. There is a dual-lead pacemaker overlying the left chest wall. The lungs are clear. There is mild cardiomegaly without evidence of cardiac decompensation. A single contrast examination of the esophagus demonstrated no intraluminal mass or stricture. Mucosa l evaluation was limited due to this being a single contrast evaluation only; however, no gross mucosal lesion is identified. There were mild tertiary contractions seen involving the mid to distal esophagus. IMPRESSION: 1. Limited single contrast barium esophagram due to an episode of tracheal aspiration with thick teri um liquids. Would recommend consideration for speech therapy evaluation to evaluate the patient's swallowing mechanism. 2. 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 3. No gross intraluminal mass, stricture or mucosal abnormality demonstrated.
== END 2018-06-12 08:54 | disposition home or self-care (01) ==
LOC: RAD 08:53
PROVIDERS: ATTEND Family Medicine
DX: R11.11 Vomiting without nausea (principal); R93.3 Abnormal findings on diagnostic imaging of other parts of digestive tract
CPT/HCPCS: 74220

== ENCOUNTER 2018-06-20 10:14 | Outpatient (CLI) | payer MEDICARE ==
--- NOTE | 2018-06-20 11:52 | PRG ---
DATE OF SERVICE: 06/20/2018 HISTORY: Mr. Rafat Paniagua is a very pleasant 88-year-old gentleman, accompanied by his , who presents to the Wound Center for evaluation of a wound of the left anterior lower leg. The patient's daughter previously stated that percutaneous revascularization of the left lower extremity was attempted 3 days prior to the patient's initial presentation to the Wound Center. She stated that percutaneous revascularization of the left lower extremity was not able to be accomplished. The patient was subsequently referred to the Wound Center by Dr. Monahan. The patient received dressing changes of Xeroform gauze followed by an ABD, Kerlix, and an Mitchell bandage three times per week after cleansing and irrigation with the assistance of Home Health. 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 PHYSICAL EXAMINATION: VITAL SIGNS: Temperature 97.5, pulse 86, respirations 19, blood pressure 132/60. Accu-Chek 118. EXTREMITIES: The wound of the left anterior lower leg has healed completely. Edema of the right and left feet and lower legs is present on exam today. SKIN: A wound of the scalp is present, which measures approximately 3.0 x 3.3 cm. Granulation tissue is present within the wound margins. No purulent drainage is associated with the wound. No erythema of the skin surrounding the wound is present. No maceration of the skin of the periwound is noted. The dimensions of the wound at the time of the patient's last visit were approximately 3.8 x 3.5 cm. ASSESSMENT AND PLAN: 1. As stated above, this wound has healed completely. The patient also has a wound of the left scalp. For the scalp wound, the patient is to receive dressing changes of Xeroform gauze followed by Bordered gauze three times per week after cleansing and irrigation with the assistance of Home Health. I will see Mr. Paniagua again on 07/25/2018. 2. Lymphedema tarda. Arrangements will continue for in-home lymphedema therapy with a pneumatic pump. 3. Coronary artery disease. 4. Degenerative joint disease. 5. Hypertension. 6. Gastroesophageal reflux disease. 7. History of pancreatic cyst. 8. Diabetes mellitus. The patient's Accu-Chek in clinic today is 118. The patient and his have been reminded that for optimal wound healing the patient's blood glucoses should remain below 150. 9. Aortic stenosis. 10. Peripheral vascular disease. Job ID: [id number]
[2018-06-20] MEDS ORDERED: Sodium Chloride 0.9% 15 ML NEB ONE (16:18)
== END 2018-06-20 10:15 | disposition home or self-care (01) ==
LOC: WCC 10:14
PROVIDERS: ATTEND Family Medicine
DX: T81.89XD Other complications of procedures, not elsewhere classified, subsequent encounter (principal); I89.0 Lymphedema, not elsewhere classified; I25.10 Atherosclerotic heart disease of native coronary artery without angina pectoris; M19.90 Unspecified osteoarthritis, unspecified site; K21.9 Gastro-esophageal reflux disease without esophagitis; I10 Essential (primary) hypertension; E11.9 Type 2 diabetes mellitus without complications; I73.9 Peripheral vascular disease, unspecified; I35.0 Nonrheumatic aortic (valve) stenosis; Z87.19 Personal history of other diseases of the digestive system
CPT/HCPCS: 97602; A4218

== ENCOUNTER 2018-07-25 12:08 | Outpatient (CLI) | payer MEDICARE ==
[2018-07-25] MEDS ORDERED: Sodium Chloride 0.9% 15 ML NEB ONE (15:00)
--- NOTE | 2018-07-25 18:10 | PRG ---
DATE OF SERVICE: 07/25/2018 HISTORY: Mr. Rafat Paniagua is a very pleasant 88-year-old gentleman, accompanied by his , who presents to the Wound Center for evaluation of a wound of the scalp subsequent to surgery for squamous cell carcinoma. The patient's daughter previously stated that percutaneous revascularization of the left lower extremity was attempted 3 days prior to the patient's initial presentation to the Wound Center. She stated that percutaneous revascularization of the left lower extremity was not able to be accomplished. The patient was subsequently referred to the Wound Center by Dr. Monahan. The patient received dressing changes for a wound of the left lower leg with the assistance of Home Health. The wound of the left anterior lower leg healed completely and presently the patient is receiving leg wraps for both lower extremities with the assistance of Home Health. PHYSICAL EXAMINATION: VITAL SIGNS: Temperature 98.0, pulse 87, respirations 19, blood pressure 142/66. Accu-Chek 123. EXTREMITIES: No wounds of the right or left lower leg are present. SKIN: A wound of the scalp is present, which measures approximately 2.0 x 2.8 cm. The dimensions of the wound at the time of the patient's last visit were approximately 3.0 x 3.3 cm. Granulation tissue is present within the wound margins. No purulent drainage is associated with the wound. No erythema of the skin surrounding the wound is present. No maceration of the skin of the periwound is noted. ASSESSMENT AND PLAN: 1. Left scalp wound. For the scalp wound, the patient is to receive dressing changes of Xeroform three times per week after cleansing and irrigation with the assistance of Home Health. I will see Mr. Paniagua again on 08/29/2018. 2. Lymphedema tarda. Arrangements will continue for in-home lymphedema therapy with a pneumatic pump. Until a pneumatic pump is acquired, the patient is to continue to receive leg wraps consisting of Kerlix and Mitchell bandages for the right and left lower legs on a weekly basis with the assistance of Home Health. 3. Coronary artery disease. 4. Degenerative joint disease. 5. Hypertension. 6. Gastroesophageal reflux disease. 7. History of pancreatic cyst. 8. Diabetes mellitus. The patient's Accu-Chek in clinic today is 123. The patient has been reminded that for optimal wound healing, his blood glucoses should remain below 150. 9. Aortic stenosis. 10. Peripheral vascular disease. Job ID: [id number]
== END 2018-07-25 12:09 | disposition home or self-care (01) ==
LOC: WCC 12:08
PROVIDERS: ATTEND Family Medicine
DX: T81.89XD Other complications of procedures, not elsewhere classified, subsequent encounter (principal); I89.0 Lymphedema, not elsewhere classified; I25.10 Atherosclerotic heart disease of native coronary artery without angina pectoris; M19.90 Unspecified osteoarthritis, unspecified site; I10 Essential (primary) hypertension; K21.9 Gastro-esophageal reflux disease without esophagitis; E11.51 Type 2 diabetes mellitus with diabetic peripheral angiopathy without gangrene; I35.0 Nonrheumatic aortic (valve) stenosis
CPT/HCPCS: 97602; A4218

== ENCOUNTER 2018-08-29 10:40 | Outpatient (CLI) | payer MEDICARE ==
--- NOTE | 2018-08-29 12:03 | PRG ---
DATE OF SERVICE: 08/29/2018 SUBJECTIVE: Mr. Rafat Paniagua is a very pleasant 88-year-old gentleman, accompanied by his , who presents to the wound center for evaluation of a wound of the scalp subsequent to surgery for squamous cell carcinoma. The patient's daughter previously stated that percutaneous revascularization of the left lower extremity was attempted 3 days prior to the patient's initial presentation to the wound center. She stated that percutaneous revascularization of the left lower extremity was not able to be accomplished. The patient was subsequently referred to the wound center by Dr. Monahan. The patient received dressing changes for a wound of the left lower leg with the assistance of Home Health. The wound of the left anterior lower leg healed completely, and currently, the patient is receiving leg wraps for both lower extremities with the assistance of Home Health. OBJECTIVE: VITAL SIGNS: Temperature 97.5, pulse 85, respirations 21, blood pressure 137/62. Accu-Chek 111. EXTREMITIES: No wounds of the right or left lower leg are present. The wound of the left lower leg has healed completely and remains healed. SKIN: A wound of the scalp is present, which measures approximately 3.0 x 2.0 cm. The dimensions of the wound at the time of the patient's last visit were approximately 2.0 x 2.8 cm. No purulent drainage is associated with the wound. No erythema of the skin surrounding the wound is present. No maceration of the skin of the periwound is noted. ASSESSMENT AND PLAN: 1. Left scalp wound. For this scalp wound, dressing changes of Xeroform will be continued 3 times per week after cleansing and irrigation with the assistance of Home Health. The patient is also to utilize shampoo for cleansing of scalp in the shower prior to dressing changes by Home Health. I will see Mr. Paniagua again on 10/10/2018. 2. Lymphedema tarda. The patient has acquired a pneumatic pump, and leg wraps by Home Health will be discontinued. The patient has been encouraged to utilize long athletic socks in lieu of compression garments in view of his peripheral vascular disease. 3. Coronary artery disease. 4. Degenerative joint disease. 5. Hypertension. 6. Gastroesophageal reflux disease. 7. History of pancreatic cyst. 8. Diabetes mellitus. The patient's Accu-Chek in clinic today is 111. The patient has been reminded that for optimal wound healing, his blood glucoses should remain below 150. 9. Aortic stenosis. 10. Peripheral vascular disease. Job ID: [id number]
== END 2018-08-29 10:41 | disposition home or self-care (01) ==
LOC: WCC 10:40
PROVIDERS: ATTEND Family Medicine
DX: T81.89XD Other complications of procedures, not elsewhere classified, subsequent encounter (principal); I89.0 Lymphedema, not elsewhere classified; I25.10 Atherosclerotic heart disease of native coronary artery without angina pectoris; M19.90 Unspecified osteoarthritis, unspecified site; I10 Essential (primary) hypertension; K21.9 Gastro-esophageal reflux disease without esophagitis; I35.0 Nonrheumatic aortic (valve) stenosis; E11.51 Type 2 diabetes mellitus with diabetic peripheral angiopathy without gangrene
CPT/HCPCS: 97602

== ENCOUNTER 2018-10-07 09:26 | Outpatient (CLI) | payer MEDICARE ==
--- NOTE | 2018-10-07 10:50 | ULT ---
Gallbladder ultrasound: Multiple grayscale images of right upper quadrant obtained according to protocol. INDICATION Pain COMPARISON: Abdominal ultrasound, September 2017 FINDINGS: Liver: Normal Gallbladder: Normal Gallbladder wall: Normal. Huerta's Sign: Negative Common bile duct is normal. Ascites: None Incidental right renal cyst, large in volume is seen. IMPRESSION: Normal gallbladder. Incidental, large right renal cyst.
== END 2018-10-07 09:27 | disposition home or self-care (01) ==
LOC: ULT 09:26
PROVIDERS: ATTEND Family Medicine
DX: R11.0 Nausea (principal); R74.8 Abnormal levels of other serum enzymes; N28.1 Cyst of kidney, acquired
CPT/HCPCS: 76705

== ENCOUNTER 2018-10-15 10:56 | Outpatient (CLI) | payer MEDICARE ==
[~2018-10-15 10:56] MED LIST changes: -Adenosine 6 MG/2 ML VIAL ONE; -Fentanyl 100 MCG/2 ML VIAL ONE; -Heparin 1000 UNIT/NS 500ML(OR) 1,000 ML ONE; -Heparin 1000 UNIT/NS 500ML(OR) 500 ML ONE; -Nitroglycerin 100MG/250ML BOT 0 ML ONE; -Nitroglycerin 100MG/250ML BOT 250 ML ONE; -Verapamil 5 MG/2 ML VIAL ONE
--- NOTE | 2018-10-15 12:37 | CT ---
Abdomen CT scan with IV contrast: HISTORY: Aortic valve disease, history of pancreatic mass/cyst COMPARISON: 10/26/2017 FINDINGS: The previously noted bilateral pleural effusions have resolved. The liver and gallbladder, spleen, an d adrenal glands appear unremarkable. Huge, 16 centimeter right renal cyst. Several smaller left renal cyst. Bilateral renal calcific foci possibly vascular calcifications versus nonobstructing faraz l calculi. Multiple cysts/cystic masses involving the pancreas including a multi loculated mass caudal to the head of the pancreas measuring 1.6 x 3.9 cm with other pancreatic or peripancreatic cys tic masses measuring up to 1.6 cm in size. The pancreatic duct is nodular and dilated throughout the pancreas with an overall small size of the pancreatic gland. 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 Previous noted pleural effusions have resolved. Bilateral renal calcifications possibly vascular calcifications versus less likely, nonobstructing re nal calculi. Multiple bilateral renal cysts.
== END 2018-10-15 10:57 | disposition home or self-care (01) ==
LOC: CT 10:56
PROVIDERS: ATTEND Family Medicine
DX: N28.1 Cyst of kidney, acquired (principal); R74.0 Nonspecific elevation of levels of transaminase and lactic acid dehydrogenase [LDH]; K86.2 Cyst of pancreas; N28.89 Other specified disorders of kidney and ureter
CPT/HCPCS: 74160; 82565; Q9967

== ENCOUNTER 2018-10-17 11:48 | Outpatient (CLI) | payer MEDICARE ==
--- NOTE | 2018-10-17 17:25 | PRG ---
DATE OF SERVICE: 10/17/2018 HISTORY: Mr. Rafat Paniagua is a very pleasant 88-year-old gentleman, accompanied by his , who presents to the Wound Center for evaluation of a wound of the scalp subsequent to surgery for squamous cell carcinoma. The patient's daughter previously stated that percutaneous revascularization of the left lower extremity was attempted 3 days prior to the patient's initial presentation to the Wound Center. She stated that percutaneous revascularization of the left lower extremity was not able to be accomplished. The patient was subsequently referred to the Wound Center by Dr. Monahan. The patient received dressing changes for wound of the left lower leg with the assistance of Home Health. The wound of the left anterior lower leg healed completely and the patient subsequently received leg wraps for both lower extremities with the assistance of Home Health. PHYSICAL EXAMINATION: VITAL SIGNS: Temperature 97.7, pulse 73, respirations 20, blood pressure 108/51. Accu-Chek 135. EXTREMITIES: No wounds of the right or left lower leg are present. The wound of the left lower leg has healed completely and remains healed. Scalp, the wound of the scalp present at the time of the patient's last visit has healed completely. ASSESSMENT AND PLAN: 1. Left scalp wound. As stated above, this wound has completely healed. Mr. Paniagua will be discharged from clinic today with followup on a p.r.n. basis. 2. Lymphedema tarda. The patient has acquired a pneumatic pump, which he has been instructed to utilize for both lower extremities as previously prescribed. At the time of the patient's last visit, Mr. Paniagua was encouraged to utilize long athletic socks in lieu of compression garments in view of his peripheral vascular disease. 3. Coronary artery disease. 4. Degenerative joint disease. 5. Hypertension. 6. Gastroesophageal reflux disease. 7. History of pancreatic cyst. 8. Diabetes mellitus. The patient's Accu-Chek in clinic today is 135. The patient has been reminded that for optimal wound healing, his blood glucoses should remain below 150. 9. Aortic stenosis. 10. Peripheral vascular disease. Job ID: [id number]
== END 2018-10-17 11:49 | disposition home or self-care (01) ==
LOC: WCC 11:48
PROVIDERS: ATTEND Family Medicine
DX: S01.00XD Unspecified open wound of scalp, subsequent encounter (principal); I89.0 Lymphedema, not elsewhere classified; M19.90 Unspecified osteoarthritis, unspecified site; I10 Essential (primary) hypertension; K21.9 Gastro-esophageal reflux disease without esophagitis; I73.9 Peripheral vascular disease, unspecified; E11.9 Type 2 diabetes mellitus without complications; I35.0 Nonrheumatic aortic (valve) stenosis; Z87.19 Personal history of other diseases of the digestive system
CPT/HCPCS: 97139; G0463; 99212

== ENCOUNTER 2018-11-23 16:48 | Inpatient (IN) | payer MEDICARE ==
[2018-11-23 18:13] VITALS: BMI 29.6
[2018-11-23] MEDS: Albumin 25% 25 GM/100 ML BOT IVPB SCH (19:29)
[2018-11-23] MEDS ORDERED: Acetaminophen 325 MG TAB PO PRN (20:11)
[2018-11-23] MEDS ORDERED: Senokot S 8.6-50 MG TAB PO PRN (20:11)
[2018-11-23] MEDS ORDERED: CEFAZOLIN 2 GM in Premix Bag 1 BAG IVPB SCH (22:00)
[2018-11-23] MEDS: Furosemide 100 MG in Sodium Chloride 0.9% 90 ML IVPB SCH (22:43)
[2018-11-23] MEDS: HYDROcodone/Acetaminophen 5/325 mg Tablet PO PRN (22:47)
[2018-11-23 22:49] LABS: Folate (Folic Acid) 15.5 ng/mL (7.0-31.4)
[2018-11-23] MEDS: Famotidine 20 MG TAB PO SCH (23:16)
[2018-11-23] MEDS: Rifampin 300 MG CAP PO SCH (23:17)
[2018-11-23] MEDS ORDERED: Morphine 2 MG/ML SYRINGE SLOW IVP SCH (23:45)
[2018-11-23] MEDS ORDERED: Furosemide 40 MG/4 ML VIAL ONE (23:53)
[2018-11-24] MEDS ORDERED: Melatonin 3 MG TAB PO PRN (00:01)
[2018-11-24] MEDS ORDERED: Morphine 2 MG/ML SYRINGE SLOW IVP SCH (00:15)
[2018-11-24] MEDS ORDERED: Dextrose 50% Abboject 50 ML SYRINGE SLOW IVP PRN (00:29)
[2018-11-24] MEDS ORDERED: Dextrose 5% in Water 1,000 ML IV PRN (00:29)
[2018-11-24 00:40] LABS: Actual Bicarbonate (HCO3a) 22.9 mEq/L (22-28); Base Excess (BEa) -1.8 mEq/L (-2.0 to +3.0); CO2 Tension 38.6 mmHg (35.0-45.0); Calcium, Ionized 1.35 mmol/L (1.12-1.30); Carboxyhemoglobin (COHb) 0.9 gm% (0.0-3.0); Hemoglobin (Hb) 9.6 g/dL (14.0-18.0); pH, Arterial 7.39 (7.35-7.45)
[2018-11-24 00:49] LABS: O2 Tension (PaO2) 57.2 mmHg (> 60.0)
[2018-11-24 00:51] LABS: Puncture Site R RADIAL
[2018-11-24] MEDS ORDERED: HumaLOG 300 UNITS/3 ML VIAL SC PRN (01:04)
--- NOTE | 2018-11-24 01:23 | HP ---
PRIMARY CARE PHYSICIAN: Dr. Carrizales. NURSE CASE MANAGEMENT: Aria Carranza MD. JEWELRY ENAMELER: Chel Pierre MD. HISTORY OF PRESENT ILLNESS: Mr. Paniagua is an 88-year-old man, who came from [facility], where he was sent from this facility on 11/19/2018. He had been inpatient at this facility since 11/02/2018. 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 He has a history of bioprosthetic aortic valve, chronic anemia, pacemaker, chronic AFib which is rate controlled. He had some metabolic encephalopathy which was resolved by the time he was discharged, coronary artery disease, diabetes type 2, hypertension, congestive heart failure exacerbation with diastolic dysfunction, which was stable at the time of discharge. He had a MOISE done on 11/11/2018 which showed some aortic and mitral valve vegetation. Blood cultures x2 on 11/03/2018 grew coag-negative Staph bacteremia. He was placed on oxacillin, gentamicin, rifampin by Dr. Escudero, ID doctor. Gentamicin was stopped after a week due to increase in creatinine and then he would need the oxacillin and the rifampin for a total duration of 36 more days to complete a 6-week course. The patient had some volume overload during his stay and he was gently diuresed. Underlying chronic kidney disease, likely stage 4 got worse. He was placed on and off diuretics. He was followed by Dr. Carranza and by the time he was discharged on 11/19, he was ambulating nearly 150 feet with physical therapy with a rolling walker. It was deemed that he was appropriate for a swing bed and Dr. Parekh admitted him to a swing bed in [place] on 11/19. There, his creatinine continued to worsen. On 11/19, it was 2.65. Today it was 3.69. He had a rough night per with some shortness of breath, back pain, and they felt he would be cared for well better here as all his physicians were at [facility]. He was sent back here as a direct admit on 11/23/2018. REVIEW OF SYSTEMS: The patient reports that he has had some shortness of breath today, reports that he has been urinating quite a bit after the diuretic and feels better when he was seen about 5 o'clock today. Reports that due to the problems with his breathing and some back pain overnight, he did not sleep well overnight and he was tired today. Complains of some chronic back pain. All other systems were reviewed and negative unless mentioned in the HPI. PAST MEDICAL HISTORY: Bladder cancer diagnosed in 1995, it is in remission; diabetes type 2; hypertension; skin cancer removed from the scalp; more recently endocarditis; acute kidney injury; chronic kidney disease; history of a bioprosthetic aortic valve; chronic anemia; pacemaker; chronic AFib; coronary artery disease; hypertension; congestive heart failure with diastolic dysfunction. PAST SURGICAL HISTORY: Valve replacement in 2018, bilateral knee replacements, bilateral rotator cuff and back surgery. PSYCHIATRIC HISTORY: None. SOCIAL HISTORY: He drinks socially. KNOWN ALLERGIES: None. CURRENT MEDICATIONS: 1. Eliquis 2.5 mg p.o. b.i.d. 2. Avodart 0.5 mg p.o. q.a.m. 3. Singulair 10 mg p.o. at bedtime. 4. Movantik 25 mg p.o. daily. 5. Protonix 40 mg p.o. q.a.m. 6. Potassium chloride 10 mEq p.o. q.a.m. 7. Flomax 0.4 mg 1 capsule p.o. at bedtime. 8. Lantus 10 units subcu b.i.d. 9. DuoNeb q.4 hours as needed. 10. Melatonin 3 mg p.o. at bedtime p.r.n. 11. MiraLAX 17 g p.o. daily. 12. Rifampin 300 mg p.o. b.i.d. 13. Senokot 2 tabs p.o. b.i.d. 14. Demadex 20 mg p.o. daily. 15. He was on oxacillin 2 g q.4 hours, but per Dr. Carranza today that has been changed to Ancef. PHYSICAL EXAMINATION: VITAL SIGNS: Temperature 98.3, pulse is 92, respirations 18, pO2 sats are 92% on 3 L nasal cannula, blood pressure 131/70. CONSTITUTIONAL: He is oriented to person, place, and time. He appears nontoxic. He is very hard of hearing. HEENT: Head is atraumatic and normocephalic. Eyelids are normal to inspection. Pupils are equally round and reactive to light. Mouth exam is normal. Mucous membranes are moist. NECK: Normal range of motion. Trachea is midline. RESPIRATORY/CHEST: Breath sounds diminished at the bases. Very fine rales. CARDIOVASCULAR: Regular rate and rhythm. Systolic murmur grade 4/6. ABDOMEN: Bowel sounds are heard. Nontender on palpation. BACK: Normal inspection, normal range of motion. EXTREMITIES: Normal range of motion. Motor strength is normal. Sensation intact. Radial pulses are normal. Lower extremity; normal range of motion. Motor strength is normal. +2 edema is noted bilaterally. NEUROLOGIC: Oriented to person, place, and time. Speech is normal. SKIN: Warm, dry, pale. PSYCHIATRIC: He has a normal affect. . GENERAL ASSESSMENT AND PLAN: 1. Fluid overload, diastolic dysfunction. We have asked Cardiology, Dr. Carranza, to consult. 2. Lexlt-zh-mvophwz renal failure. Dr. Carranza has ordered some Lasix drip at 6 mg/hour and also some albumin 25 g q.6 x3. We will recheck values in the morning. 3. History of atrial fibrillation. We will continue the Eliquis. Cardiology has been consulted. 4. Endocarditis. We will continue rifampin, Kefzol. We have asked Dr. Escudero to see while during this hospitalization. 5. We will restart Protonix, gastrointestinal prophylaxis. 6. Diabetes type 2. Sliding scale. Restart home Lantus. 7. Case discussed with Dr. Woodard, Dr. Carranza. Plan is agreed upon. 8. Hospital course is dependent on clinical findings. 9. The patient is a DNR. This was confirmed with the patient and at the bedside. Job ID: [id number]
--- NOTE | 2018-11-24 02:09 | PDOC.EVN ---
Event Note - Event Note Event Note: Nurse called to say he was having a harder time catching his breath and asked for someone to come see him. Dr. Flores and myself went to his room, patient complaining primarily of chronic back pain and was sitting on the edge of the bed. Dr. Flores ordered morphine 1mg IVP x1 now, transfer to IMCU and a bipap to help with his breathing effort. Nurses have difficulty obtaining SPo2 reading.
[2018-11-24] MEDS: Albumin 25% 25 GM/100 ML BOT IVPB SCH ×2 (03:06→07:45)
[2018-11-24 04:19] LABS: #Basophils 0.1 thou/uL (0.0-0.2); #Eosinphils 0.2 thou/uL (0.0-0.7); #Lymphocytes 0.9 thou/uL (1.20-3.40); #Monocytes 0.7 thou/uL (0.11-0.59); #Neutrophils 6.2 thou/uL (1.40-6.50); %Basophils 0.9 % (0.0-1.0); %Eosinophils 2.9 % (0.0-10.0); %Lymphocytes 11.5 % (21.0-51.0); %Monocytes 8.3 % (0.0-10.0); %Neutrophils 76.4 % (42.0-75.0); Hemoglobin 9.7 g/dL (14.0-18.0); Mean Corpuscular HGB CONC 33.2 g/dL (32.0-36.0); Mean Corpuscular Hemoglobin 30.9 pg (27.0-31.0); Mean Corpuscular Volume 92.9 fL (78.0-98.0); Mean Platelet Volume 7.2 fL (7.4-10.4); Platelet Count 238 thou/uL (130-400); RBC Distribution Width 14.2 % (11.5-14.5); Red Blood Cell (RBC) Count 3.13 mill/uL (4.70-6.10); White Blood Cell (WBC) Count 8.1 thou/uL (4.8-10.8)
--- NOTE | 2018-11-24 04:37 | CON ---
DATE OF CONSULTATION: 11/23/2018 CONSULTING PHYSICIAN: ROVERTO Vigil REASON FOR CONSULTATION: Acute kidney injury. REASON FOR ADMISSION: Fluid overload and acute kidney injury. HISTORY OF PRESENT ILLNESS: An 88-year-old white male with history of CHF, hypertension, CKD, type 2 diabetes, recent KELLY, came to the hospital with fluid overload. The patient was recently discharged from the hospital after KELLY episode and was at the rehab, was found to have elevated creatinine and fluid overload, was sent back. The patient is feeling slightly better. He had breathing trouble yesterday and also difficulty urinating yesterday. No chest pain or palpitation. No fever or chills. PAST MEDICAL HISTORY: Hypertension, CHF, CKD, bladder cancer, atrial fibrillation, type 2 diabetes. PAST SURGICAL HISTORY: Valve replacement, bilateral knee replacement , rotator cuff, back surgery. HOME MEDICATIONS: 1. Torsemide. 2. Flomax. 3. Senokot. 4. Klor-Con. 5. MiraLAX. 6. Protonix. 7. Movantik. 8. Singulair. 9. DuoNeb. 10. Lantus. 11. Avodart. 12. Eliquis. ALLERGIES: NO KNOWN DRUG ALLERGIES. SOCIAL HISTORY: No smoking, alcohol, or illicit drugs. FAMILY HISTORY: No history of kidney disease. REVIEW OF SYSTEMS: CONSTITUTIONAL: Negative for weight loss or gain, ability to conduct usual activities. SKIN: Negative for rash, itching. EYES: Negative for double vision, pain. ENT/MOUTH: Negative for nose bleeding, neck stiffness, pain, tenderness. CARDIOVASCULAR: Negative for palpitations, dyspnea on exertion, orthopnea. RESPIRATORY: Negative for shortness of breath, wheezing, cough, hemoptysis, fever or night sweats. GASTROINTESTINAL: Negative for poor appetite, abdominal pain, heartburn, nausea, vomiting, constipation, or diarrhea. GENITOURINARY: Negative for urgency, frequency, dysuria, nocturia. MUSCULOSKELETAL: Negative for pain, swelling. NEUROLOGIC/PSYCHIATRIC: Negative for anxiety, depression. ALLERGY/IMMUNOLOGIC: Negative for skin rash, bleeding tendency. PHYSICAL EXAMINATION: GENERAL: This is an elderly male, in no apparent distress. VITAL SIGNS: Temperature 98.3, pulse 91, respiratory rate 18, and blood pressure 131/79. HEENT: Atraumatic, normocephalic. Oral mucosa moist. NECK: Supple. CV: S1 and S2. Regular rate and rhythm. RESPIRATORY: Clear. GASTROINTESTINAL: Abdomen is soft. MUSCULOSKELETAL: No tenderness. No edema. DERMATOLOGIC: No skin rash. NEUROLOGIC: Alert and awake and oriented X3.PSYCHIATRIC: Mood and affect normal. LABORATORY DATA: Hemoglobin 8.5, potassium 3.5, BUN is 25, creatinine is 3.3. ASSESSMENT AND PLAN: 1. Acute kidney injury on chronic kidney disease stage 4 with worsening creatinine. Oxacillin changed to cefazolin. We will add Lasix drip and albumin. 2. Anemia of chronic disease. We will check iron studies and we will add Epogen as tolerated. 3. Edema, controlled. 4. Cardiorenal syndrome. 5. Fluid overload. 6. Elevated BNP. 7. Hypoalbuminemia. 8. Moderate protein energy malnutrition. 9. Right-sided heart failure. Follow with Cardiology. 10. Prognosis guarded. Plan is to start Lasix drip and albumin, and continue Ancef. We will follow. Thank you for the consult. Job ID: [id number]
[2018-11-24 04:41] LABS: Iron 27 ug/dL (65-175); Iron Binding Capacity, Total 166 mcg/dL (261-462)
[2018-11-24 04:43] LABS: ALT (SGPT) Less than 7 U/L (8-55); AST (SGOT) 15 U/L (5-34); Alkaline Phosphatase 166 U/L (40-110); Anion Gap 15 mmol/L (10-20); BUN (Urea Nitrogen) 27 mg/dL (8.4-25.7); Bilirubin, Total 1.3 mg/dL (0.2-1.2); Calc. Creatinine Clearance 17 mL/min (70-130); Calcium 10.4 mg/dL (7.8-10.44); Carbon Dioxide 24 mmol/L (23-31); Chloride 101 mmol/L (98-107); Estimated GFR-MDRD 16; Globulin 3.1 g/dL (2.4-3.5); Glucose 129 mg/dL (83-110); Potassium 3.4 mmol/L (3.5-5.1); Protein, Total 7.1 g/dL (5.8-8.1); Sodium 137 mmol/L (136-145)
[2018-11-24] MEDS: Dutasteride 0.5 MG CAP PO SCH ×2 (07:45→07:50)
[2018-11-24] MEDS: Potassium Chloride 10 MEQ TAB PO SCH (07:45)
[2018-11-24] MEDS: HYDROcodone/Acetaminophen 5/325 mg Tablet PO PRN ×2 (08:22→13:45)
[2018-11-24] MEDS: ceFAZolin 1 GM/D5W 1 GM in Premix Bag 1 BAG IVPB SCH ×2 (10:00→20:31)
[2018-11-24] MEDS: Insulin Glargine 10 UNITS in Pre-Filled Syringe 1 EACH SC SCH ×2 (10:02→20:29)
[2018-11-24] MEDS: Polyethylene Glycol 3350 17 GM Packet PO SCH (10:06)
[2018-11-24] MEDS: Rifampin 300 MG CAP PO SCH ×2 (10:06→20:31)
[2018-11-24] MEDS: Pantoprazole 40 MG GRANULES PACKET PO SCH (10:06)
[2018-11-24] MEDS: Morphine 2 MG/ML SYRINGE SLOW IVP PRN ×5 (10:37→23:45)
[2018-11-24] MEDS ORDERED: Potassium Chloride 20 MEQ TAB PO SCH (11:00)
--- NOTE | 2018-11-24 11:35 | CON ---
DATE OF CONSULTATION: REASON FOR CONSULTATION: Recurrent shortness of breath. HISTORY OF PRESENT ILLNESS: Mr. Paniagua is an unfortunate 88-year-old gentleman, who is a patient of Dr. Chel Pierre. He recently was diagnosed with endocarditis of his mitral and aortic valve. He was sent to skilled facility. He had increased shortness of breath and was transferred back to [facility]. He currently continues to have increased shortness of breath. He currently has BiPAP in place. No chest pain or pressure noted. PAST MEDICAL HISTORY: As above including a bladder cancer, diabetes mellitus, hypertension, chronic kidney disease, previous bioprosthetic aortic valve, pacemaker placement, chronic atrial fibrillation, CAD, hypertension, knee surgery, and rotator cuff surgery. SOCIAL HISTORY: No current tobacco or alcohol use. ALLERGIES: NONE. HOME MEDICATIONS: Include; 1. Avodart. 2. Eliquis. 3. Singulair. 4. Movantik. 5. Protonix. 6. Potassium. 7. Flomax. 8. Lantus. 9. DuoNeb. 10. Melatonin. 11. MiraLAX. 12. Rifampin. 13. Senokot. 14. Demadex. REVIEW OF SYSTEMS: A 10-point review of systems is difficult to obtain. PHYSICAL EXAMINATION: VITAL SIGNS: Blood pressure 150/80, pulse 93, temperature afebrile. GENERAL: The patient does appear to be in moderate distress with BiPAP placed. NEUROLOGIC: The patient is alert and oriented x3 with no focal neurologic deficits. HEENT: Sclerae without icterus. Mouth has moist mucous membranes with normal pallor. NECK: No JVD. Carotid upstroke brisk. No bruits bilaterally. LUNGS: Crackles noted bilaterally. BACK: No scoliosis or kyphosis. CARDIAC: Regular rate and rhythm with normal S1 and S2. No S3 or S4 noted. No significant rubs, murmurs, thrills, or gallops noted throughout the precordium. PMI is not displaced. There is no parasternal heave. ABDOMEN: Soft, nontender, nondistended. No peritoneal signs present. No hepatosplenomegaly. No abnormal striae. EXTREMITIES: 2+ femoral and 2+ dorsalis pedis pulses. No cyanosis, clubbing, or edema. SKIN: No gross abnormalities. LABORATORY DATA: Hemoglobin 9.7, hematocrit 29.1, and platelet count of 238. Creatinine 3.54. IMPRESSION: 1. Increased shortness of breath. 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 4. Coronary artery disease. 5. Atrial fibrillation. 6. Respiratory distress. RECOMMENDATIONS: At this point, we will continue conservative means and measures. Mr. Paniagua and Mr. Paniagua's family are not interested in intubation, cardioversion, or compressions. We will honor his wishes. We will continue BiPAP at this point. He has been placed on antibiotic therapy. The patient's prognosis appears guarded. I recommend repeating his echo to assess aortic valve. Concern for worsening endocarditis in the prosthetic valve position and possible aortic insufficiency as his demise. Job ID: [id number]
--- NOTE | 2018-11-24 12:19 | PDOC.HOSPP ---
- Subjective Encounter Date: 11/24/18 Encounter Time: 12:13 Subjective: Patient was moved to [facility] with respiratory decline and need for BIPAP. The patient says that does not want the bipap. He cannot continue to live like this and wants to stop treatment. He fully understands that he is dependent on the BIPAP and does not want it. He has agreed to allow NC oxygen. He is reassured that we will keep him comfortable. - Objective Vital Signs & Weight: Vital Signs (12 hours) Temp Pulse Pulse Ox 11/24/18 08:08 90 L 11/24/18 07:32 95 11/24/18 07:00 98.5 F 11/24/18 06:43 95 11/24/18 04:00 98.3 F 96 11/24/18 03:57 97 11/24/18 03:16 93 L Weight Weight 189 lb Most Recent Monitor Data Heart Rate from ECG 93 NIBP 150/80 NIBP BP-Mean 103 Respiration from ECG 18 SpO2 94 I&O: 11/23/18 11/24/18 11/25/18 06:59 06:59 06:59 Intake Total 130.3 0 Output Total 665 965 2347 Balance -900 -669.7 -1160 Result Diagrams: 11/24/18 04:00 11/24/18 04:00 Additional Labs: Accuchecks 11/24/18 11:10 POC Glucose 122 H Hospitalist ROS - Medication Medications: Active Medications Generic Name Dose Route Start Last Admin Trade Name Freq PRN Reason Stop Dose Admin Hydrocodone Bitart/Acetaminophen 1 tab 11/23/18 20:11 11/24/18 08:22 [place] 5/325 PO 1 tab Q4H PRN Administration Moderate Pain (4-6) Dutasteride 0.5 mg 11/24/18 09:00 11/24/18 07:50 Avodart PO 0.5 mg QAM BRAYDON Administration Famotidine 20 mg 11/23/18 21:00 11/23/18 23:16 Pepcid PO 20 mg QPM BRAYDON Administration Furosemide 100 mg/ Sodium 100 mls @ 6 mls/hr 11/23/18 18:45 11/23/18 22:43 Chloride IVPB 100 mls INF BRAYDON Administration 6 MG/HR Cefazolin Sodium/Dextrose 1 gm 50 mls @ 100 mls/hr 11/24/18 09:00 11/24/18 10 :00 / Device IVPB 50 mls Q12HR BRAYDON Administration Insulin Glargine 10 units/ 0.1 mls @ 0 mls/hr 11/24/18 09:00 11/24/18 10:02 Miscellaneous Medication SC 0.1 mls BID BRAYDON Administration Miscellaneous Medication 25 mg 11/24/18 07:30 11/24/18 08:22 Movantik PO 25 mg DAILY-AC BRAYDON Administration Morphine Sulfate 2 mg 11/24/18 10:34 11/24/18 10:37 Morphine SLOW IVP 2 mg Q30MIN PRN Administration BREAKTHRU OR SEVERE PAIN Pantoprazole Sodium 40 mg 11/24/18 09:00 11/24/18 10:06 Protonix PO 40 mg QAM BRAYDON Administration Polyethylene Glycol 17 gm 11/24/18 09:00 11/24/18 10:06 Miralax PO Not Given DAILY BRAYDON Potassium Chloride 10 meq 11/24/18 08:00 11/24/18 07:45 Klor-Con 10 PO 10 meq QAM-WM BRAYDON Administration Rifampin 300 mg 11/23/18 22:00 11/24/18 10:06 Rifadin PO 300 mg 1000,2200 BRAYDON Administration Sodium Chloride 10 ml 11/23/18 21:00 11/24/18 10:06 Flush - Normal Saline IVF 10 ml Q12HR BRAYDON Administration - Exam General Appearance: awake alert General - other findings: Tachypneic Heart: RRR, II/IV Respiratory: rales (Scattered) Gastrointestinal: soft, non-tender Hosp A/P (1) KELLY (acute kidney injury) Code(s): N17.9 - ACUTE KIDNEY FAILURE, UNSPECIFIED Status: Acute (2) Acute hypoxemic respiratory failure Code(s): J96.01 - ACUTE RESPIRATORY FAILURE WITH HYPOXIA Status: Acute (3) Afib Code(s): I48.91 - UNSPECIFIED ATRIAL FIBRILLATION Status: Chronic Qualifiers: Atrial fibrillation type: chronic (4) Chronic anemia Code(s): D64.9 - ANEMIA, UNSPECIFIED Status: Chronic (5) Coronary artery disease Code(s): I25.10 - ATHSCL HEART DISEASE OF [place] CORONARY ARTERY W/O ANG PCTRS Status: Chronic Qualifiers: [place] vs. transplanted heart: jamul heart Associated angina: without angina (6) Diabetes mellitus type 2 in nonobese Code(s): E11.9 - TYPE 2 DIABETES MELLITUS WITHOUT COMPLICATIONS Status: Chronic (7) H/O heart valve replacement with bioprosthetic valve Code(s): Z95.3 - PRESENCE OF XENOGENIC HEART VALVE Status: Chronic (8) Hypertension Code(s): I10 - ESSENTIAL (PRIMARY) HYPERTENSION Status: Chronic Qualifiers: Hypertension type: essential hypertension Qualified Code(s): I10 - Essential (primary) hypertension (9) Pacemaker Code(s): Z95.0 - PRESENCE OF CARDIAC PACEMAKER Status: Chronic (10) Acute exacerbation of CHF (congestive heart failure) Code(s): I50.9 - HEART FAILURE, UNSPECIFIED Status: Resolved Qualifiers: Heart failure type: diastolic Qualified Code(s): I50.33 - Acute on chronic diastolic (congestive) heart failure - Plan Unfortunately, 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 He has failed long-term antibiotic therapy and has worsening heart failure and renal failure. He has decided to forego aggressive treatment and be made comfort care. This is a decision that he made himself with his family at the bedside. Will DC BiPAP and give nasal cannula oxygen. I will give prn morphine and lorazepam. Discussed the case with Dr. Nagy. Made Dr. Mullen aware.
[2018-11-24] MEDS: Apixaban 2.5 MG TAB PO SCH ×2 (12:30→20:29)
--- NOTE | 2018-11-24 14:00 | CON ---
DATE OF CONSULTATION: 11/24/2018 REASON FOR CONSULTATION: Dyspnea, pulmonary edema, endocarditis. HISTORY OF PRESENT ILLNESS: An 88-year-old known to me from recent admission in mid October when he presented with a history of coronary artery disease and peripheral vascular disease, type 2 diabetes and previous aortic valve replacement, as well as pacemaker due to fatigue and inability to carry out his daily activities without any reported fever. After admission, he started having temperature elevation up to 101 and some elevation of creatinine. He had 2 sets of blood cultures positive for coagulase negative Staph and one for Streptococcus, and a MOISE was consistent with aortic valve endocarditis with a small mass noted attached to the mitral valve leaflets, and one small mass noted at the annulus of the bioprosthetic aortic valve. He was treated with combination of oxacillin, gentamicin, and rifampin. The organism was methicillin susceptible. The patient improved steadily and eventually was transferred to [place] for continuation of care. Upon transfer, his gentamicin was discontinued at one week after initiation because of increase in creatinine. His creatinine has stabilized and now seems to be trending down a little bit at 3.54, but the patient has developed worsening dyspnea and diffuse multifocal pulmonary parenchymal opacities, probably related to pulmonary edema. He was transferred back to this hospital because of this development and now it seems like he is not willing to undergo any more aggressive cares. Still getting active treatment with medications, though he has refused BiPAP and is on nasal cannula O2 only. Denies any chest pain or abdominal pain. No diarrhea, and has an indwelling Boothe catheter. PAST MEDICAL HISTORY: Bladder cancer in remission, atrial fibrillation, pacemaker, AVR for stenosis, coronary artery disease, bypass graft surgery, bilateral knee replacements, laminectomy, skin cancers, and now coagulase-negative Staph, prosthetic mitral valve endocarditis. ALLERGIES: NONE. SOCIAL HISTORY: Former smoker, had been living with . FAMILY HISTORY: Coronary artery disease. CURRENT MEDICATIONS: 1. Tylenol. 2. [place]. 3. DuoNeb. 4. Eliquis. 5. Cefazolin. 6. Dextrose. 7. Furosemide. 8. Glucagon. 9. Insulin. 10. Lorazepam. 11. Melatonin. 12. Movantik. 13. Singulair. 14. Morphine. 15. Protonix. 16. MiraLAX. 17. Klor-Con. 18. Rifadin. 19. Senokot. 20. Flomax. PHYSICAL EXAMINATION: VITAL SIGNS: T-max 98.5, blood pressure 150/70, pulse 87, respiratory rate 24, O2 saturation 96 and 97. SKIN: Bruising in the upper extremities. The patient has a PICC line in the right upper extremity and a Boothe catheter. He is awake, follows commands. Little bit drowsy. HEENT: Ocular movements are conjugate. Pupils are equal. NECK: Supple. LUNGS: Symmetric. Coarse breath sounds with bibasilar inspiratory crackles. CARDIOVASCULAR: S1 and S2. Diminished heart sounds. Regular rate. ABDOMEN: Soft, not distended or tender. No ascites. No bladder distention. EXTREMITIES: No joint inflammatory activity. Able to move all extremities. 1+ edema in the lower extremities. LABORATORY STUDIES: Sodium 137, creatinine is down to 3.54, seems to have plateaued at this point in time. Iron 27, ferritin 334. Transaminases normal. Alkaline phosphatase 166. Bilirubin 1.6. Folate 15. Albumin 4.0. ASSESSMENT: prosthetic mitral valve endocarditis in the setting of coronary artery disease and pacemaker, atrial fibrillation, on Eliquis and renal insufficiency probably multifactorial with a component of aminoglycoside nephrotoxicity. The patient seems to be against any additional intervention at this point in time and we will continue with cefazolin adjusted for renal function and evidently limited prognosis. Job ID: [id number]
[2018-11-24] MEDS: Famotidine 20 MG TAB PO SCH (20:29)
[2018-11-24] MEDS: Tamsulosin HCl 0.4 MG CAP PO SCH (20:30)
[2018-11-24] MEDS: Montelukast Sodium 10 mg Tablet PO SCH (20:30)
[2018-11-24] MEDS ORDERED: FLU VACC TS2019-20(65YR UP)/PF 180 MCG/0.5 ML SYRINGE IM ONE (21:00)
[2018-11-24] MEDS ORDERED: Furosemide 40 MG/4 ML VIAL SLOW IVP SCH (23:45)
[2018-11-25] MEDS: Lorazepam 2 MG/ML VIAL SLOW IVP PRN (01:40)
[2018-11-25] MEDS: Morphine 2 MG/ML SYRINGE SLOW IVP PRN ×2 (04:49→08:06)
[2018-11-25] MEDS: Furosemide 100 MG in Sodium Chloride 0.9% 90 ML IVPB SCH (08:08)
[2018-11-25] MEDS: Insulin Glargine 10 UNITS in Pre-Filled Syringe 1 EACH SC SCH ×2 (08:26→20:19)
[2018-11-25] MEDS: Polyethylene Glycol 3350 17 GM Packet PO SCH (08:27)
[2018-11-25] MEDS: ceFAZolin 1 GM/D5W 1 GM in Premix Bag 1 BAG IVPB SCH ×2 (08:32→20:17)
[2018-11-25] MEDS: Apixaban 2.5 MG TAB PO SCH ×2 (08:35→20:18)
[2018-11-25] MEDS: Dutasteride 0.5 MG CAP PO SCH (08:35)
[2018-11-25] MEDS ORDERED: Ondansetron ODT 4 MG TAB PO PRN (08:36)
[2018-11-25] MEDS: Rifampin 300 MG CAP PO SCH ×2 (08:36→20:18)
[2018-11-25] MEDS ORDERED: Ondansetron PF 4 MG/2 ML Vial IVP PRN (08:36)
[2018-11-25] MEDS: Pantoprazole 40 MG GRANULES PACKET PO SCH (08:37)
[2018-11-25] MEDS: Potassium Chloride 10 MEQ TAB PO SCH (08:37)
--- NOTE | 2018-11-25 10:37 | PDOC.PALCO ---
Palliative Care Consult - Consult Details Requesting Physician: Dr Bedoya Reason for Consult: goals of care, family support Family Members Present: of patient - Pertinent HPI 88 year old gentleman with significant medical history. Recently transitioned to [facility] for rehab. He was found to have endocarditis/ specifically aortic and mitral valve involvement with acute kidney injury. Creatinine increased to 3.69 as well as increase of shortness of breath and back pain, was sent to [facility] for evaluation, Emergency room identified fluid overload with diastolic dysfunction, acute on chronic renal failure, endocarditis. - Pertinent PMH Congestive heart failure/diastolic, Endocarditis, chronic anemia, diabetes, bladder cancer, chronic afib, CAD, - Social History Smoking Status: Never smoker Smoking: no tobacco exposure Alcohol Use: rarely Drug Use History: none Living Situation: - Medications MAR Reviewed: Yes - Allergies Allergies/Adverse Reactions: Allergies Allergy/AdvReac Type Severity Reaction Status Date / Time No Known Allergies Allergy Verified 11/02/18 16:55 - Subjective Sleeping with HOB elevated and on O2 via NC. at bedside ROS: complains of shortness of breath, fatigued, otherwise 10 point review negative - Objective Vital Signs: Vital Signs - Most Recent Temp Pulse Resp BP Pulse Ox 98.7 F 95 20 142/70 H 95 11/25/18 08:00 11/25/18 08:00 11/25/18 08:00 11/25/18 08:00 11/25/18 09:00 Palliative Performance Scale: 30 - Physical Exam Constitutional: mild distress HEENT: moist MMs, EOMI Deviation from normal: mildly labored respirations, adventicious bilateral lung sounds Cardiovascular: RRR Gastrointestinal: soft, non-tender, positive bowel sounds Musculoskeletal: pulses present, edema present Neurological: moves all 4 limbs Psychiatric: A&O x 3 Skin: cap refill <2 seconds - Problem List (1) Palliative care encounter Code(s): Z51.5 - ENCOUNTER FOR PALLIATIVE CARE Current Visit: Yes Status: Acute (2) Endocarditis Code(s): I38 - ENDOCARDITIS, VALVE UNSPECIFIED Current Visit: No Status: Acute Qualifiers: Endocarditis type: infective Infective endocarditis organism: bacterial Chronicity: acute Qualified Code(s): I33.0 - Acute and subacute infective endocarditis (3) Acute exacerbation of CHF (congestive heart failure) Code(s): I50.9 - HEART FAILURE, UNSPECIFIED Current Visit: No Status: Resolved Qualifiers: Heart failure type: diastolic Qualified Code(s): I50.33 - Acute on chronic diastolic (congestive) heart failure (4) Acute worsening of stage 3 chronic kidney disease Code(s): N18.3 - CHRONIC KIDNEY DISEASE, STAGE 3 (MODERATE) Current Visit: No Status: Resolved - Plan/Recommendations Plan: [place] O2 dependent and on O2 via NC. at bedside, patient returned to sleep state. Life review and goals of care * states patient main goal is not to suffer * requested to speak with Dr Brody, Dr Brody confirmed he was seeing patient today * requests to stay on abx another day to see if Mr Paniagua improves *Should he not improve she would consider transitioning to [facility] or inpatient with [facility] * sates she is unable to care for Mr Paniagua at home [60] minutes spent on this encounter with >50% of the time in counseling and coordination of care. Thank you for this very appropriate consult.
--- NOTE | 2018-11-25 11:49 | PRG ---
DATE OF SERVICE: 11/24/2018 SUBJECTIVE: Patient was seen and examined at bedside and overnight events noted. Patient denies any shortness of breath or chest pain or palpitation. No history of nausea or vomiting or diarrhea or fever or chills or cramps. OBJECTIVE: GENERAL: This is an elderly male, in no acute distress. Very lethargic. VITAL SIGNS: Temperature 98.5. Pulse 96, and blood pressure 150/80. HEENT: Atraumatic, normocephalic. Oral mucosa is moist NECK: Supple. CARDIOVASCULAR: S1, S2 heard. Rate and rhythm regular. RESPIRATORY: Clear to auscultation. GASTROINTESTINAL: Abdomen is soft. MUSCULOSKELETAL: No tenderness. No edema. DERMATOLOGIC: No skin rash. NEUROLOGIC: Alert and awake and oriented X3. No focal neurologic deficits. Moving all the extremities. PSYCHIATRIC: Mood and affect normal. LABORATORY DATA: Potassium 3.4, BUN is 27, creatinine 3.54. ASSESSMENT AND PLAN: 1. Acute kidney injury on chronic kidney disease stage 4 with stable creatinine. He is making a lot of urine almost 250 mL/h on Lasix drip and albumin. 2. Anemia of chronic disease. 3. Edema, controlled. 4. Cardiorenal syndrome with recent endocarditis and right heart failure with pulmonary hypertension and fluid overload, elevated BNP. 5. Moderate protein energy malnutrition. 6. Hypoalbuminemia. 7. Prognosis guarded. Follow with Cardiology for further plan. Family is interested in palliative care. Also, the patient expressed that he wished to have resuscitation. Also consider supportive care and palliative care. We will monitor renal function. Job ID: [id number]
[2018-11-25 13:05] LABS: Anion Gap 16 mmol/L (10-20); BUN (Urea Nitrogen) 32 mg/dL (8.4-25.7); Calc. Creatinine Clearance 17 mL/min (70-130); Calcium 9.8 mg/dL (7.8-10.44); Carbon Dioxide 26 mmol/L (23-31); Chloride 99 mmol/L (98-107); Estimated GFR-MDRD 17; Glucose 88 mg/dL (83-110); Sodium 138 mmol/L (136-145)
[2018-11-25 13:10] LABS: Potassium 2.9 mmol/L (3.5-5.1)
--- NOTE | 2018-11-25 13:30 | PRG ---
DATE OF SERVICE: 11/25/2018 SUBJECTIVE: This is an 88-year-old gentleman being seen for acute kidney injury. The patient is resting. OBJECTIVE: See above. Awake, alert, in no acute distress. VITAL SIGNS: Afebrile, pulse 75, breathing 16, blood pressure 142/70. GENERAL APPEARANCE AND MENTAL STATUS: Fair. HEAD/NECK: Normocephalic. Atraumatic. EYES: EOMI. No deformity. EARS: Clear. No ulcers. NOSE: Intact. No lesions. MOUTH: Clear. No discharge. THROAT: Clear. No exudate. LUNGS: Clear. No crackles. CARDIAC: S1, S2. No rub. ABDOMEN: Benign. Bowel sounds positive. GENITALIA/RECTUM: Boothe absent. BACK/EXTREMITIES: Edema 0+. NEUROLOGICAL: Alert and motor intact. SKIN: LYMPHATICS: LABORATORY DATA: Labs reviewed. ASSESSMENT AND PLAN: Stage 5 chronic kidney disease with acute kidney injury. Risks versus benefits of dialysis were discussed. The patient and his family wants comfort care. Anemia stable. Medication based on GFR appropriate. I agree with palliative care hospice. I will sign off. Please reconsult as needed. Job ID: [id number]
--- NOTE | 2018-11-25 13:54 | PRG ---
DATE OF SERVICE: 11/25/2018 SUBJECTIVE: Mr. Paniagua is less responsive today. He looks more comfortable in terms of his breathing. He is unable to take oral medicines. OBJECTIVE: VITAL SIGNS: His blood pressure 142/70, pulse 90. LUNGS: Clear anteriorly, laterally. CARDIAC: Normal S1, normal S2. EXTREMITIES: Cool but not cold. DIAGNOSTIC DATA: Echocardiogram showed ejection fraction with a technically difficult study. The aortic valve prosthesis looks normal. The mitral valve annulus calcification. There is a large pleural effusion. No pericardial effusion. LABORATORY DATA: Potassium is 2.9, creatinine 3.45. ASSESSMENT: 1. Congestive heart failure, mostly diastolic, acute on chronic. 2. 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 3. Endocarditis. PLAN: 1. Discussed code status. The patient wants palliative care. Prognosis looks poor. He looks like he has end-stage. 2. Continue IV antibiotics and intravenous Lasix for now. Job ID: [id number]
[2018-11-25] MEDS: Potassium Chloride 20 MEQ in Premix Bag 1 BAG IVPB SCH ×2 (14:36→16:32)
--- NOTE | 2018-11-25 17:36 | PDOC.HOSPP ---
- Subjective Subjective: Very somnolent today. Family at the bedside. - Objective Vital Signs & Weight: Vital Signs (12 hours) Temp Pulse Resp BP Pulse Ox 11/25/18 09:00 95 11/25/18 08:00 98.7 F 95 20 142/70 H 96 11/25/18 06:24 92 16 89 L Weight Weight 181 lb 3.2 oz Most Recent Monitor Data Heart Rate from ECG 95 NIBP 136/72 NIBP BP-Mean 93 Respiration from ECG 22 SpO2 90 I&O: 11/24/18 11/25/18 11/26/18 06:59 06:59 06:59 Intake Total 130.3 72 Output Total 800 2360 Balance -561.6 -6112 Result Diagrams: 11/24/18 04:00 11/25/18 12:25 Additional Labs: Accuchecks 11/25/18 11/25/18 15:54 11:03 POC Glucose 85 112 H Hospitalist ROS - Medication Medications: Active Medications Generic Name Dose Route Start Last Admin Trade Name Freq PRN Reason Stop Dose Admin Hydrocodone Bitart/Acetaminophen 1 tab 11/23/18 20:11 11/24/18 13:45 [place] 5/325 PO 1 tab Q4H PRN Administration Moderate Pain (4-6) Apixaban 2.5 mg 11/24/18 09:00 11/25/18 08:35 Eliquis PO Not Given BID BRAYDON Dutasteride 0.5 mg 11/24/18 09:00 11/25/18 08:35 Avodart PO Not Given QAM BRAYDON Famotidine 20 mg 11/23/18 21:00 11/24/18 20:29 Pepcid PO Not Given QPM BRAYDON Furosemide 100 mg/ Sodium 100 mls @ 6 mls/hr 11/23/18 18:45 11/25/18 08:08 Chloride IVPB 100 mls INF BRAYDON Administration 6 MG/HR Cefazolin Sodium/Dextrose 1 gm 50 mls @ 100 mls/hr 11/24/18 09:00 11/25/18 08 :32 / Device IVPB 50 mls Q12HR BRAYDON Administration Insulin Glargine 10 units/ 0.1 mls @ 0 mls/hr 11/24/18 09:00 11/25/18 08:26 Miscellaneous Medication SC Not Given BID BRAYDON Potassium Chloride 20 meq/ 100 mls @ 50 mls/hr 11/25/18 14:00 11/25/18 16:32 Device IVPB 11/25/18 17:59 100 mls Q2H BRAYDON Administration Lorazepam 1 mg 11/24/18 12:12 11/25/18 01:40 Ativan SLOW IVP 1 mg Q4H PRN Administration Anxiety/Agitation Miscellaneous Medication 25 mg 11/24/18 07:30 11/25/18 08:37 Movantik PO Not Given DAILY-AC BRAYDON Montelukast Sodium 10 mg 11/24/18 21:00 11/24/18 20:30 Singulair PO Not Given HS [facility] Morphine Sulfate 2 mg 11/24/18 10:34 11/24/18 13:46 Morphine SLOW IVP 2 mg Q30MIN PRN Administration BREAKTHRU OR SEVERE PAIN Morphine Sulfate 2 mg 11/24/18 12:11 11/25/18 08:06 Morphine SLOW IVP 2 mg Q2H PRN Administration Moderate to Severe Pain (6-10) Ondansetron HCl 4 mg 11/25/18 08:36 11/25/18 09:01 Zofran IVP 4 mg Q6H PRN Administration Nausea/Vomiting Pantoprazole Sodium 40 mg 11/24/18 09:00 11/25/18 08:37 Protonix PO Not Given QAM [facility] Polyethylene Glycol 17 gm 11/24/18 09:00 11/25/18 08:27 Miralax PO Not Given DAILY [facility] Potassium Chloride 10 meq 11/24/18 08:00 11/25/18 08:37 Klor-Con 10 PO Not Given QAM-WM [facility] Rifampin 300 mg 11/23/18 22:00 11/25/18 08:36 Rifadin PO Not Given 1000,2200 BRAYDON Sodium Chloride 10 ml 11/23/18 21:00 11/25/18 08:33 Flush - Normal Saline IVF 10 ml Q12HR BRAYDON Administration Sodium Chloride 10 ml 11/23/18 18:52 11/25/18 09:02 Flush - Normal Saline IVF 10 ml PRN PRN Administration Saline Flush Tamsulosin HCl 0.4 mg 11/24/18 21:00 11/24/18 20:30 Flomax PO Not Given HS BRAYDON - Exam General Appearance: NAD General - other findings: Somnolent and does not respond to exam. Heart: RRR, no murmur, no gallops, no rubs, normal peripheral pulses Respiratory: rales (Bilateral.) Gastrointestinal: soft, normal bowel sounds, no palpable masses, no hepatomegaly , no splenomegaly, no bruit Extremities: no cyanosis, no clubbing, no edema Psychiatric: somnolent, lethargic Hosp A/P (1) KELLY (acute kidney injury) Code(s): N17.9 - ACUTE KIDNEY FAILURE, UNSPECIFIED Status: Acute (2) Acute hypoxemic respiratory failure Code(s): J96.01 - ACUTE RESPIRATORY FAILURE WITH HYPOXIA Status: Acute (3) Afib Code(s): I48.91 - UNSPECIFIED ATRIAL FIBRILLATION Status: Chronic Qualifiers: Atrial fibrillation type: chronic (4) Chronic anemia Code(s): D64.9 - ANEMIA, UNSPECIFIED Status: Chronic (5) Coronary artery disease Code(s): I25.10 - ATHSCL HEART DISEASE OF [place] CORONARY ARTERY W/O ANG PCTRS Status: Chronic Qualifiers: [place] vs. transplanted heart: [place] heart Associated angina: without angina (6) Diabetes mellitus type 2 in nonobese Code(s): E11.9 - TYPE 2 DIABETES MELLITUS WITHOUT COMPLICATIONS Status: Chronic (7) H/O heart valve replacement with bioprosthetic valve Code(s): Z95.3 - PRESENCE OF XENOGENIC HEART VALVE Status: Chronic (8) Hypertension Code(s): I10 - ESSENTIAL (PRIMARY) HYPERTENSION Status: Chronic Qualifiers: Hypertension type: essential hypertension Qualified Code(s): I10 - Essential (primary) hypertension (9) Pacemaker Code(s): Z95.0 - PRESENCE OF CARDIAC PACEMAKER Status: Chronic (10) Acute exacerbation of CHF (congestive heart failure) Code(s): I50.9 - HEART FAILURE, UNSPECIFIED Status: Resolved Qualifiers: Heart failure type: diastolic Qualified Code(s): I50.33 - Acute on chronic diastolic (congestive) heart failure - Plan Unfortunately, 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 He has failed long-term antibiotic therapy and has worsening heart failure and renal failure. He has decided to forego aggressive treatment and be made comfort care. This is a decision that he made himself with his family at the bedside. Continue pain management. Continue IV abx and lasix gtt for one more day per family wishes. Will likely choose inpatient hospice tomorrow.
[2018-11-25] MEDS: Montelukast Sodium 10 mg Tablet PO SCH (20:18)
[2018-11-25] MEDS: Famotidine 20 MG TAB PO SCH (20:18)
[2018-11-25] MEDS: Tamsulosin HCl 0.4 MG CAP PO SCH (20:18)
[2018-11-26] MEDS: Insulin Glargine 10 UNITS in Pre-Filled Syringe 1 EACH SC SCH ×2 (08:29→21:01)
[2018-11-26] MEDS: ceFAZolin 1 GM/D5W 1 GM in Premix Bag 1 BAG IVPB SCH ×2 (08:30→20:59)
[2018-11-26] MEDS: Rifampin 300 MG CAP PO SCH ×2 (08:33→21:00)
[2018-11-26] MEDS: Apixaban 2.5 MG TAB PO SCH ×2 (08:33→21:01)
[2018-11-26] MEDS: Dutasteride 0.5 MG CAP PO SCH (08:34)
[2018-11-26] MEDS: Potassium Chloride 10 MEQ TAB PO SCH (08:34)
[2018-11-26] MEDS: Pantoprazole 40 MG GRANULES PACKET PO SCH (08:35)
[2018-11-26] MEDS: Polyethylene Glycol 3350 17 GM Packet PO SCH (08:35)
--- NOTE | 2018-11-26 09:50 | PDOC.PALFU ---
Palliative Care Follow-up Note Continued conversation in relation to goals of care. Patient stating that he desires just "Be comfortable". tearful but agrees to seek comfort measures as goal of care. Requesting for [facility] to assess and GIP if appropriate as can not care for patient at home. Therapeutic listening. CM notified as well as Dr Bedoya. [facility] also called as per request.
[2018-11-26] MEDS: Morphine 2 MG/ML SYRINGE SLOW IVP PRN ×3 (14:39→21:02)
--- NOTE | 2018-11-26 14:56 | PRG ---
DATE OF SERVICE: 11/26/2018 SUBJECTIVE: Mr. Paniagua is more alert today. He does not appear to be short of breath. OBJECTIVE: VITAL SIGNS: His blood pressure is 129/60, pulse 86 and regular. LUNGS: Clear. CARDIAC: Normal S1, normal S2. ABDOMEN: Soft, nontender. ASSESSMENT: 1. Diastolic heart failure. 2. Renal failure. 3. Endocarditis. PLAN: 1. We will plan on going to do one more basic metabolic tomorrow. 2. He is on intravenous antibiotics. 3. Hospice is being arranged. Job ID: [id number]
[2018-11-26] MEDS: Furosemide 100 MG in Sodium Chloride 0.9% 90 ML IVPB SCH (15:30)
--- NOTE | 2018-11-26 16:30 | PDOC.HOSPP ---
- Subjective Subjective: More awake today. A little frustrated because he says some people telling he is getting better for one thing and worse for another. - Objective Vital Signs & Weight: Vital Signs (12 hours) Temp Pulse Resp BP Pulse Ox 11/26/18 13:16 93 L 11/26/18 08:14 98.5 F 87 18 129/69 100 Weight Weight 160 lb 3 oz Most Recent Monitor Data Heart Rate from ECG 95 NIBP 136/72 NIBP BP-Mean 93 Respiration from ECG 22 SpO2 90 I&O: 11/25/18 11/26/18 11/27/18 06:59 06:59 06:59 Intake Total 72 355 Output Total 9566 2377 [employer] -1430 -5993 Result Diagrams: 11/24/18 04:00 11/25/18 12:25 Hospitalist ROS - Medication Medications: Active Medications Generic Name Dose Route Start Last Admin Trade Name Freq PRN Reason Stop Dose Admin Hydrocodone Bitart/Acetaminophen 1 tab 11/23/18 20:11 11/24/18 13:45 [place] 5/325 PO 1 tab Q4H PRN Administration Moderate Pain (4-6) Apixaban 2.5 mg 11/24/18 09:00 11/26/18 08:33 Eliquis PO Not Given BID BRAYDON Dutasteride 0.5 mg 11/24/18 09:00 11/26/18 08:34 Avodart PO Not Given QAM BRAYDON Famotidine 20 mg 11/23/18 21:00 11/25/18 20:18 Pepcid PO 20 mg QPM BRAYDON Administration Furosemide 100 mg/ Sodium 100 mls @ 6 mls/hr 11/23/18 18:45 11/26/18 15:30 Chloride IVPB 100 mls INF BRAYDON Administration 6 MG/HR Cefazolin Sodium/Dextrose 1 gm 50 mls @ 100 mls/hr 11/24/18 09:00 11/26/18 08 :30 / Device IVPB 50 mls Q12HR BRAYDON Administration Insulin Glargine 10 units/ 0.1 mls @ 0 mls/hr 11/24/18 09:00 11/26/18 08:29 Miscellaneous Medication SC Not Given BID BRAYDON Lorazepam 1 mg 11/24/18 12:12 11/25/18 01:40 Ativan SLOW IVP 1 mg Q4H PRN Administration Anxiety/Agitation Miscellaneous Medication 25 mg 11/24/18 07:30 11/26/18 08:35 Movantik PO Not Given DAILY-AC BRAYDON Montelukast Sodium 10 mg 11/24/18 21:00 11/25/18 20:18 Singulair PO 10 mg HS BRAYDON Administration Morphine Sulfate 2 mg 11/24/18 10:34 11/24/18 13:46 Morphine SLOW IVP 2 mg Q30MIN PRN Administration BREAKTHRU OR SEVERE PAIN Morphine Sulfate 2 mg 11/24/18 12:11 11/26/18 14:39 Morphine SLOW IVP 2 mg Q2H PRN Administration Moderate to Severe Pain (6-10) Ondansetron HCl 4 mg 11/25/18 08:36 11/25/18 09:01 Zofran IVP 4 mg Q6H PRN Administration Nausea/Vomiting Pantoprazole Sodium 40 mg 11/24/18 09:00 11/26/18 08:35 Protonix PO Not Given QAM [facility] Polyethylene Glycol 17 gm 11/24/18 09:00 11/26/18 08:35 Miralax PO Not Given DAILY BRAYDON Potassium Chloride 10 meq 11/24/18 08:00 11/26/18 08:34 Klor-Con 10 PO Not Given QAM-WM BRAYDON Rifampin 300 mg 11/23/18 22:00 11/26/18 08:33 Rifadin PO Not Given 1000,2200 BRAYDON Sodium Chloride 10 ml 11/23/18 21:00 11/26/18 08:35 Flush - Normal Saline IVF 10 ml Q12HR BRAYDON Administration Sodium Chloride 10 ml 11/23/18 18:52 11/25/18 09:02 Flush - Normal Saline IVF 10 ml PRN PRN Administration Saline Flush Tamsulosin HCl 0.4 mg 11/24/18 21:00 11/25/18 20:18 Flomax PO 0.4 mg HS BRAYDON Administration - Exam General Appearance: NAD, awake alert Heart: RRR, no murmur, no rubs, normal peripheral pulses Heart - other findings: S3 gallop Respiratory: CTAB, no wheezes, no rales, no ronchi, normal chest expansion, no tachypnea, normal percussion Gastrointestinal: soft, non-tender, non-distended, normal bowel sounds, no palpable masses, no hepatomegaly, no splenomegaly, no bruit Extremities: no edema Psychiatric: normal affect Hosp A/P (1) KELLY (acute kidney injury) Code(s): N17.9 - ACUTE KIDNEY FAILURE, UNSPECIFIED Status: Acute (2) Acute hypoxemic respiratory failure Code(s): J96.01 - ACUTE RESPIRATORY FAILURE WITH HYPOXIA Status: Acute (3) Afib Code(s): I48.91 - UNSPECIFIED ATRIAL FIBRILLATION Status: Chronic Qualifiers: Atrial fibrillation type: chronic (4) Chronic anemia Code(s): D64.9 - ANEMIA, UNSPECIFIED Status: Chronic (5) Coronary artery disease Code(s): I25.10 - ATHSCL HEART DISEASE OF [place] CORONARY ARTERY W/O ANG PCTRS Status: Chronic Qualifiers: [place] vs. transplanted heart: [place] heart Associated angina: without angina (6) Diabetes mellitus type 2 in nonobese Code(s): E11.9 - TYPE 2 DIABETES MELLITUS WITHOUT COMPLICATIONS Status: Chronic (7) H/O heart valve replacement with bioprosthetic valve Code(s): Z95.3 - PRESENCE OF XENOGENIC HEART VALVE Status: Chronic (8) Hypertension Code(s): I10 - ESSENTIAL (PRIMARY) HYPERTENSION Status: Chronic Qualifiers: Hypertension type: essential hypertension Qualified Code(s): I10 - Essential (primary) hypertension (9) Pacemaker Code(s): Z95.0 - PRESENCE OF CARDIAC PACEMAKER Status: Chronic (10) Acute exacerbation of CHF (congestive heart failure) Code(s): I50.9 - HEART FAILURE, UNSPECIFIED Status: Resolved Qualifiers: Heart failure type: diastolic Qualified Code(s): I50.33 - Acute on chronic diastolic (congestive) heart failure - Plan Unfortunately, 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 He has failed long-term antibiotic therapy and has worsening heart failure and renal failure. He has decided to forego aggressive treatment and be made comfort care. This is a decision that he made himself with his family at the bedside. Continue pain management. Continue IV abx and lasix gtt for one more day per family wishes. Hospice to assess patient today. I clarified that the overall prognosis is still poor, but we have managed to improve some of the pulm edema in the short term.
[2018-11-26] MEDS: Lorazepam 2 MG/ML VIAL SLOW IVP PRN (20:46)
[2018-11-26] MEDS: Tamsulosin HCl 0.4 MG CAP PO SCH (21:00)
[2018-11-26] MEDS: Montelukast Sodium 10 mg Tablet PO SCH (21:01)
[2018-11-26] MEDS: Famotidine 20 MG TAB PO SCH (21:01)
[2018-11-27] MEDS: Morphine 2 MG/ML SYRINGE SLOW IVP PRN ×2 (05:15→15:52)
[2018-11-27 06:34] LABS: Anion Gap 15 mmol/L (10-20); BUN (Urea Nitrogen) 40 mg/dL (8.4-25.7); Calc. Creatinine Clearance 14 mL/min (70-130); Carbon Dioxide 33 mmol/L (23-31); Chloride 95 mmol/L (98-107); Estimated GFR-MDRD 17; Glucose 146 mg/dL (83-110); Sodium 140 mmol/L (136-145)
[2018-11-27 06:43] LABS: Potassium 2.9 mmol/L (3.5-5.1)
--- NOTE | 2018-11-27 08:13 | PDOC.PALPN ---
Palliative Progress Note - Subjective Sleeping, arousable and frustrated as he is ready to transition to comfort measures. ROS: fatigue, otherwise negative in 10 point review - Objective Vital Signs: Vital Signs - Most Recent Temp Pulse Resp BP Pulse Ox 98.4 F 89 18 107/68 100 11/27/18 08:05 11/27/18 08:05 11/27/18 08:05 11/27/18 08:05 11/27/18 08:05 - Physical Exam Deviation from normal: generalized weakness HEENT: moist MMs, EOMI Deviation from normal: hearing loss Respiratory: unlabored breathing Cardiovascular: gallop Gastrointestinal: soft, non-tender, positive bowel sounds Musculoskeletal: no edema, pulses present Neurological: moves all 4 limbs Psychiatric: A&O x 3 Skin: cap refill <2 seconds Deviation from normal: fair turgor - Assessment (1) Palliative care encounter Code(s): Z51.5 - ENCOUNTER FOR PALLIATIVE CARE Status: Acute (2) Endocarditis Code(s): I38 - ENDOCARDITIS, VALVE UNSPECIFIED Status: Acute Qualifiers: Endocarditis type: infective Infective endocarditis organism: bacterial Chronicity: acute Qualified Code(s): I33.0 - Acute and subacute infective endocarditis - Plan Plan: and family decided on inpatient hospice with [facility]. Son, and daughter-in -law at bedside. *Contacted Hospice [facility], will determine if patient must be 1)re- evaluated or 2) records need to be faxed for admission. They are contacting DON/ [employer] to determine. *Continue to support patient and family. [40] minutes spent on this encounter with >50% of the time in counseling and coordination of care.
[2018-11-27] MEDS ORDERED: Potassium Chloride 20 MEQ TAB PO SCH (08:15)
[2018-11-27] MEDS: Potassium Chloride 10 MEQ TAB PO SCH (08:30)
--- NOTE | 2018-11-27 08:32 | PDOC.PALFU ---
Palliative Care Follow-up Note Patient transitioned to comfort medications only. Family and patient requested. Dr Bedoya notified.
[2018-11-27] MEDS ORDERED: Rifampin 150 MG CAP PO SCH (10:00)
[2018-11-27 15:03] VITALS: BP 102/52; TEMP 99.1
--- NOTE | 2018-11-27 22:01 | PDOC.FMACP ---
Advance Care Planning - Problem (1) KELLY (acute kidney injury) Status: Acute Code(s): N17.9 - ACUTE KIDNEY FAILURE, UNSPECIFIED (2) Acute hypoxemic respiratory failure Status: Acute Code(s): J96.01 - ACUTE RESPIRATORY FAILURE WITH HYPOXIA (3) Afib Status: Chronic Code(s): I48.91 - UNSPECIFIED ATRIAL FIBRILLATION Qualifiers: Atrial fibrillation type: chronic (4) Chronic anemia Status: Chronic Code(s): D64.9 - ANEMIA, UNSPECIFIED (5) Coronary artery disease Status: Chronic Code(s): I25.10 - ATHSCL HEART DISEASE OF [place] CORONARY ARTERY W/O ANG PCTRS Qualifiers: [place] vs. transplanted heart: [place] heart Associated angina: without angina (6) Diabetes mellitus type 2 in nonobese Status: Chronic Code(s): E11.9 - TYPE 2 DIABETES MELLITUS WITHOUT COMPLICATIONS (7) H/O heart valve replacement with bioprosthetic valve Status: Chronic Code(s): Z95.3 - PRESENCE OF XENOGENIC HEART VALVE (8) Hypertension Status: Chronic Code(s): I10 - ESSENTIAL (PRIMARY) HYPERTENSION Qualifiers: Hypertension type: essential hypertension Qualified Code(s): I10 - Essential (primary) hypertension (9) Pacemaker Status: Chronic Code(s): Z95.0 - PRESENCE OF CARDIAC PACEMAKER (10) Acute exacerbation of CHF (congestive heart failure) Status: Resolved Code(s): I50.9 - HEART FAILURE, UNSPECIFIED Qualifiers: Heart failure type: diastolic Qualified Code(s): I50.33 - Acute on chronic diastolic (congestive) heart failure - Note Participants: patient, family Summary: Advanced Care Planning was discussed. The diagnosis, prognosis and goals of care were discussed. Appropriate forms and documentation to accomplish the goals of care were discussed. All questions were answered. The Palliative Care Team will be engaged to assist with completion of any outstanding forms that are needed. Ultimately, patient was clear that he did not want to pursue aggressive measures, but will give another 24 hours. Then consider hospice. Time Spent (mins): 17
== END 2018-11-27 16:28 | disposition hospice, inpatient (51) | DRG 682 ==
LOC: 2NO 17:52 → CCU 11-24 00:14 → IMCU/EMU 11-24 11:42 → T4-A 11-24 16:18
PROVIDERS: ADMIT Internal Medicine; ATTEND Internal Medicine
DX: N17.9 Acute kidney failure, unspecified (principal); J96.01 Acute respiratory failure with hypoxia; I50.33 Acute on chronic diastolic (congestive) heart failure; I33.0 Acute and subacute infective endocarditis; T82.6XXA Infection and inflammatory reaction due to cardiac valve prosthesis, initial encounter; E44.0 Moderate protein-calorie malnutrition; I13.0 Hypertensive heart and chronic kidney disease with heart failure and stage 1 through stage 4 chronic kidney disease, or unspecified chronic kidney disease; N18.4 Chronic kidney disease, stage 4 (severe); Y83.9 Surgical procedure, unspecified as the cause of abnormal reaction of the patient, or of later complication, without mention of misadventure at the time of the procedure; Z66 Do not resuscitate; Z51.5 Encounter for palliative care; Z95.0 Presence of cardiac pacemaker; I25.10 Atherosclerotic heart disease of native coronary artery without angina pectoris; I48.91 Unspecified atrial fibrillation; D63.8 Anemia in other chronic diseases classified elsewhere; Z68.23 Body mass index [BMI] 23.0-23.9, adult; E11.22 Type 2 diabetes mellitus with diabetic chronic kidney disease; E11.51 Type 2 diabetes mellitus with diabetic peripheral angiopathy without gangrene
CPT/HCPCS: 36415; 36416; 80048; 80053; 82607; 82728; 82746; 82805; 83540; 83550; 85025; 93306; 94660; J0690; J1815; J1940; J2060; J2270; J2405; J3480; J3490; P9047